=== PATIENT | male | born 1975 | race Hispanic/Latino ===

== ENCOUNTER 2017-02-24 10:50 | Inpatient (IN) | payer BC ==
[2017-02-24] MEDS ORDERED: Sodium Chloride 0.9% 2,000 ML IV STA ×2 (11:04→13:52)
--- NOTE | 2017-02-24 11:09 | ED PDOC ---
Arrival/HPI - General Time Seen by Provider: 02/24/17 10:51 Historian: Patient - History of Present Illness Narrative History of Present Illness (Text): 02/24/17 11:07 41 year old male whose past medical history includes diabetes presents to the emergency department with abdominal pain, vomiting, and diarrhea since yesterday. Patient is uncooperative, refusing to answer questions. Time/Duration: 24 hours Symptom Onset: Sudden Symptom Course: Unchanged Context: Home Past Medical History - Provider Review Nursing Documentation Reviewed: Yes - Infectious Disease Hx of Infectious Diseases: None - Endocrine/Metabolic Hx Diabetes Mellitus Type 1: Yes - Psychiatric Hx Substance Use: No Family/Social History - Physician Review Nursing Documentation Reviewed: Yes Family/Social History: Unknown Family HX Smoking Status: Never Smoked Hx Alcohol Use: Yes Frequency of alcohol use: Socially Hx Substance Use: No Allergies/Home Meds Allergies/Adverse Reactions: Allergies No Known Allergies Allergy (Verified 02/24/17 11:07) Home Medications: Home Meds Medication Instructions Recorded Confirmed Atorvastatin [Lipitor] 20 mg PO DAILY 02/24/17 02/24/17 Ergocalciferol (Vitamin D2) 50,000 unit PO DAILY 02/24/17 02/24/17 [Vitamin D] Insulin Glulisine [Apidra] 100 unit IJ CONT 02/24/17 02/24/17 Review of Systems - Review of Systems Systems not reviewed;Unavailable: Uncooperative Gastrointestinal: Abdominal Pain, Diarrhea, Vomiting Physical Exam - Physical Exam Physical Exam Limitations: Uncooperative (Patient refusing to answer questions, refusing to open mouth for phsyical examination) Vital Signs Reviewed: Yes Vital Signs Temp Pulse Resp BP Pulse Ox 02/24/17 13:50 96 H 27 H 100 02/24/17 13:47 141/78 99 02/24/17 13:26 101 H 18 135/71 97 02/24/17 11:05 98.7 F 120 H 20 143/66 96 Temperature: Afebrile Blood Pressure: Normal Pulse: Tachycardic Respiratory Rate: Normal Appearance: Positive for: Well-Appearing, Non-Toxic, Uncomfortable Pain Distress: Moderate Mental Status: Positive for: other (Uncooperative) Finger Stick Blood Glucose: 500 - Systems Exam Head: Present: Atraumatic, Normocephalic Conjunctiva: Present: Normal Respiratory/Chest: Present: Clear to Auscultation, Good Air Exchange. No: Respiratory Distress, Accessory Muscle Use Cardiovascular: Present: Normal S1, S2. No: Murmurs Abdomen: Present: Normal Bowel Sounds. No: Tenderness, Distention, Peritoneal Signs Upper Extremity: Present: Normal Inspection. No: Cyanosis, Edema Lower Extremity: Present: Normal Inspection. No: Edema Neurological: Present: GCS=15, CN II-XII Intact, Speech Normal Psychiatric: Present: Alert Medical Decision Making ED Course and Treatment: 02/24/17 12:20 Case discussed with ICU, recommends [facility]. - Critical Care Critical Care Minutes: 60 minutes - Lab Interpretations Lab Results: 02/24/17 11:00 02/24/17 11:00 Lab Results 02/24/17 11:04: pO2 193 H, VBG pH 7.06 L*, VBG pCO2 18.0 L*, VBG HCO3 5.1 L, VBG O2 Sat (Calc) 99.8 H, VBG Base Excess -23.4 L 02/24/17 11:01: POC Glucose (mg/dL) > 500 H* 02/24/17 11:00: Alcohol, Quantitative < 10 02/24/17 11:00: Sodium 129 L, Potassium 6.0 H*, Chloride 90 L, Carbon Dioxide < 5 L, Anion Gap 40 H, BUN 46 H, Creatinine 2.2 H, Est GFR ( Amer) 40, Est GFR (Non-Af Amer) 33, Random Glucose 937 H*, Calcium 9.5, Total Bilirubin 1.3, AST 40, ALT 36, Alkaline Phosphatase 94, Total Protein 6.9, Albumin 4.7, Globulin 2.1, Albumin/Globulin Ratio 2.2 H, Lipase 200 02/24/17 11:00: WBC 19.1 H, RBC 4.37, Hgb 13.5 L, Hct 41.5 L, MCV 95.0, MCH 30.9 , MCHC 32.5, RDW 13.6, Plt Count 312, MPV 10.1, Gran % 89.7 H, Lymph % (Auto) 3.8 L, [place] % (Auto) 6.4 H, Eos % (Auto) 0.0 L, Baso % (Auto) 0.1, Gran # 17.12 H, Lymph # 0.7 L, [place] # 1.2 H, Eos # 0.0, Baso # 0.01 - RAD Interpretation Radiology Orders: 02/24/17 11:04 CHEST PORTABLE [RAD] Stat 02/24/17 11:05 obstructive series [ABD 2 VIEWS (FLAT/UP OR DECUB)] [RAD] Stat - Medication Orders Current Medication Orders: Discontinued Medications Aspirin (Ecotrin) 325 mg PO DAILY [facility] Last Admin: 02/25/17 18:18 Dose: 325 mg Barium Sulfate (Readi-Cat 2) Confirm Administered Dose 900 ml PO .STK-MED ONE Stop: 02/25/17 06:38 Dextrose (Dextrose 50% Inj) Confirm Administered Dose 50 ml .ROUTE .STK-MED ONE Stop: 02/25/17 22:11 Dextrose (Dextrose 50% Inj) Confirm Administered Dose 50 ml .ROUTE .STK-MED ONE Stop: 02/25/17 22:13 Last Admin: 02/25/17 22:38 Dose: 50 ml Dextrose (Dextrose 50% Inj) 50 ml IVP ONCE ONE Stop: 02/25/17 22:22 Enoxaparin Sodium (Lovenox) 70 mg SC Q12H [facility] PRN Reason: Protocol Last Admin: 02/25/17 18:18 Dose: 70 mg Sodium Chloride (Sodium Chloride 0.9%) 2,000 mls @ 999 mls/hr IV .Q2H1M STA Stop: 02/24/17 13:04 Last Admin: 02/24/17 11:23 Dose: 999 mls/hr Lactated Ringer's (Lactated Ringer's) 2,000 mls @ 999 mls/hr IV .Q2H1M [facility] Last Admin: 02/24/17 12:17 Dose: 999 mls/hr Sodium Chloride (Sodium Chloride 0.9%) 1,000 mls @ 999 mls/hr IV .Q1H1M STA Stop: 02/24/17 12:29 Last Admin: 02/24/17 11:56 Dose: 999 mls/hr Insulin Human Regular 100 (units/ Sodium Chloride) 100 mls @ 7 mls/hr IV .[id number] PRN; Protocol; 7 UNITS/HR PRN Reason: TITRATE PER MD ORDER Last Titration: 02/25/17 04:00 Dose: 0 units/hr, 0 mls/hr Ceftriaxone Sodium (Rocephin 1 Gram Ivpb) 1 gm in 100 mls @ 200 mls/hr IVPB STAT STA PRN Reason: Protocol Stop: 02/24/17 12:42 Last Admin: 02/24/17 12:56 Dose: 200 mls/hr Sodium Chloride (Sodium Chloride 0.9%) 1,000 mls @ 125 mls/hr IV .Q8H [facility] Last Admin: 02/24/17 21:05 Dose: 125 mls/hr Sodium Chloride (Sodium Chloride 0.9%) 2,000 mls @ 999 mls/hr IV .Q2H1M STA Stop: 02/24/17 15:52 Last Admin: 02/24/17 14:00 Dose: 999 mls/hr Piperacillin Sod/Tazobactam Sod (Zosyn 3.375 In Ns 100ml) 100 mls @ 200 mls/hr IVPB Q6 [facility] PRN Reason: Protocol Stop: 03/05/17 20:54 Last Admin: 02/24/17 21:06 Dose: 200 mls/hr Potassium Chloride 10 meq/ (Dextrose/Sodium Chloride) 1,005 mls @ 150 mls/hr IV .Q6H42M [facility] Last Admin: 02/25/17 09:00 Dose: 150 mls/hr Piperacillin Sod/Tazobactam Sod (Zosyn 3.375 In Ns 100ml) 100 mls @ 200 mls/hr IVPB Q6 [facility] PRN Reason: Protocol Stop: 03/05/17 20:54 Last Admin: 02/26/17 00:05 Dose: 200 mls/hr Piperacillin Sod/Tazobactam Sod (Zosyn 3.375 In Ns 100ml) Confirm Administered Dose 100 mls @ ud IVPB .STK-MED ONE Stop: 02/25/17 12:26 Sodium Chloride (Sodium Chloride 0.9%) 1,000 mls @ 100 mls/hr IV .Q10H [facility] Stop: 03/01/17 21:14 Last Admin: 02/25/17 18:17 Dose: 100 mls/hr Insulin Detemir (Levemir) 60 unit SC ONCE ONE Stop: 02/25/17 10:06 Last Admin: 02/25/17 10:35 Dose: 60 unit Insulin Detemir (Levemir) Confirm Administered Dose 60 unit SC .STK-MED ONE Stop: 02/25/17 10:35 Insulin Human Regular (Humulin R) 10 units IV STAT STA Stop: 02/24/17 11:55 Last Admin: 02/24/17 12:17 Dose: 10 units Insulin Human Regular (Humulin R Med) 0 units SC ACHS [facility] PRN Reason: Protocol Last Admin: 02/25/17 22:52 Dose: Not Given Non-Admin Reason: Blood Sugar Parameter Insulin Human Regular (Humulin R) Confirm Administered Dose 8 units .ROUTE .STK- MED ONE Stop: 02/25/17 12:27 Metoclopramide HCl (Reglan) 10 mg IVP Q6H [facility] Last Admin: 02/26/17 00:04 Dose: 10 mg Metoclopramide HCl (Reglan) Confirm Administered Dose 10 mg .ROUTE .STK-MED ONE Stop: 02/25/17 12:24 Metoclopramide HCl (Reglan) Confirm Administered Dose 10 mg .ROUTE .STK-MED ONE Stop: 02/25/17 12:25 Metoprolol Tartrate (Lopressor) 25 mg PO BRKDIN [facility] Ondansetron HCl (Zofran Inj) 4 mg IVP ONCE ONE Stop: 02/24/17 11:08 Last Admin: 02/24/17 11:22 Dose: 4 mg Ondansetron HCl (Zofran Inj) 4 mg IVP Q4H PRN PRN Reason: Nausea/Vomiting Pantoprazole Sodium (Protonix Inj) 40 mg IVP DAILY [facility] Last Admin: 02/25/17 10:35 Dose: 40 mg Pantoprazole Sodium (Protonix Inj) Confirm Administered Dose 40 mg .ROUTE .STK- MED ONE Stop: 02/25/17 10:35 Pneumococcal Polyvalent Vaccine (Pneumovax 23 Vaccine) 0.5 ml IM .ONCE ONE Stop: 02/24/17 14:56 Potassium Chloride (K-Dur 20 Meq Er Tab) 40 meq PO STAT STA Stop: 02/24/17 18:17 Last Admin: 02/24/17 18:32 Dose: 40 meq - Scribe Statement The provider has reviewed the documentation as recorded by the Alize Mcclain Provider Scribe Attestation: All medical record entries made by the Scribyoung were at my direction and personally dictated by me. I have reviewed the chart and agree that the record accurately reflects my personal performance of the history, physical exam, medical decision making, and the department course for this patient. I have also personally directed, reviewed, and agree with the discharge instructions and disposition. Disposition/Present on Arrival - Present on Arrival Any Indicators Present on Arrival: No History of DVT/PE: No History of Uncontrolled Diabetes: No Urinary Catheter: No History of Decub. Ulcer: No History Surgical Site Infection Following: None - Disposition Have Diagnosis and Disposition been Completed?: Yes Diagnosis: DKA (diabetic ketoacidoses) Disposition: HOME/ ROUTINE Disposition Time: 12:18 Condition: GUARDED
[2017-02-24 11:11] LABS: ADD MANUAL DIFF? NO
[2017-02-24 11:21] LABS: VENOUS BLOOD GAS BASE EXCESS -23.4 mmol/L (0.0-2.0)
[2017-02-24 11:23] LABS: BASO # 0.01 K/mm3 (0.0-2.0); BASO % 0.1 % (0.0-3.0); GRAN # 17.12 (1.4-6.5); GRAN % 89.7 % (50.0-68.0); HEMATOCRIT 41.5 % (42.0-52.0); LYMPH # 0.7 (1.2-3.4); LYMPH % 3.8 % (22.0-35.0); MEAN CORPUSCULAR HEMOGLOBIN 30.9 pg (25.0-35.0); MEAN CORPUSCULAR HGB CONC 32.5 g/dl (31.0-37.0); MEAN PLATELET VOLUME 10.1 fl (7.0-11.0); MONO # 1.2 (0.1-0.6); MONO % 6.4 % (1.0-6.0); PLATELET COUNT 312 10^3/uL (120.0-450.0); RED CELL DISTRIBUTION WIDTH 13.6 % (11.5-14.5); WHITE BLOOD COUNT 19.1 10^3/ul (4.5-11.0)
[2017-02-24 11:24] LABS: VENOUS BLOOD PH 7.06 (7.32-7.43)
[2017-02-24 11:25] LABS: ALB/GLOB RATIO 2.2 (1.1-1.8); ALKALINE PHOSPHATASE 94 U/L (38-133); ALT/SGPT 36 U/L (7-56); AST/SGOT 40 U/L (15-59); BILIRUBIN,TOTAL 1.3 mg/dL (0.2-1.3); BLOOD UREA NITROGEN 46 mg/dL (7-21); CALCIUM 9.5 mg/dL (8.4-10.5); CHLORIDE 90 mmol/L (98-107); GFR AFRICAN-AMERICAN 40; LIPASE 200 U/L (23-300); SODIUM 129 mmol/L (132-148); TOTAL PROTEIN 6.9 g/dL (5.8-8.3)
[2017-02-24] MEDS ORDERED: Lactated Ringer's 2,000 ML IV SCH (11:29)
[2017-02-24] MEDS ORDERED: Sodium Chloride 0.9% 1,000 ML IV STA (11:29)
[2017-02-24 11:52] LABS: CARBON DIOXIDE < 5 mmol/L (21-33)
[2017-02-24 11:53] LABS: GLUCOSE,RANDOM 937 mg/dL (70-110)
[2017-02-24] MEDS ORDERED: Insulin Regular 100 UNITS in Sodium Chloride 0.9% 99 ML IV PRN (11:54)
[2017-02-24] MEDS ORDERED: Insulin Regular 1 UNITS/0.01 ML ML IV STA (11:54)
[2017-02-24 11:57] VITALS: BMI 24.3
[2017-02-24] MEDS ORDERED: cefTRIAXone 1 gm 1 GM/100 ML BAG IVPB STA (12:13)
--- NOTE | 2017-02-24 12:52 | CP.PCM.CON ---
<Darin Kirby - Last Filed: 02/24/17 14:06> History of Present Illness - History of Present Illness History of Present Illness: Critical Care Consult Note for Dr. Yang CC: DKA This is a 41M diagnosed with diabetes in 1997 when he had an episode of DKA. He reports a brief period of difficulty controlling his blood sugar for the first couple of years however he reports no issues in recent. He denies recent DKA however he reports visits to the ED due to hypoglycemia. The patient reports that a few months ago he received a new [employer]tronics insulin pump. He reports that yesterday he had a had time controlling his blood sugar. He reports that he felt fine, he had chicken soup for lunch and then had an episode of emesis. His blood glucose was 300 at the time. He gave himself the recommended dose of insulin and reports that his blood glucose was again 300, he then gave himself the recommended dose of insulin again. He then tried to eat another bowl of soup and had another episode of emesis. He complains of a change in visual acuity today accompanied by respiratory changes and abdominal pain. He denies any chest pain. Aside from emesis he denies any recent illnesses. PMH: DM1 PSH: Hernia repair ALL: NKDA Meds: Insulin, Lipitor (non compliant due to myalgias) Family History: Unknown Social: Denies regular use of ETOH or tobacco, denies drug use. Review of Systems - Review of Systems All systems: reviewed and no additional remarkable complaints except Past Patient History - Infectious Disease Hx of Infectious Diseases: None - Past Social History Smoking Status: Never Smoked - ENDOCRINE/METABOLIC Hx Diabetes Mellitus Type 1: Yes - PSYCHIATRIC Hx Substance Use: No - SURGICAL HISTORY Hx Surgeries: No Meds Allergies/Adverse Reactions: Allergies Allergy/AdvReac Type Severity Reaction Status Date / Time No Known Allergies Allergy Verified 02/24/17 11:07 - Medications Medications: Current Medications Lactated Ringer's (Lactated Ringer's) 2,000 mls @ 999 mls/hr IV .Q2H1M [facility] Last Admin: 02/24/17 12:17 Dose: 999 mls/hr Insulin Human Regular 100 (units/ Sodium Chloride) 100 mls @ 7 mls/hr IV .[id number] PRN; Protocol; 7 UNITS/HR PRN Reason: TITRATE PER MD ORDER Physical Exam - Constitutional Appears: Non-toxic, No Acute Distress - Head Exam Head Exam: ATRAUMATIC, NORMOCEPHALIC - Eye Exam Eye Exam: EOMI, Normal appearance, PERRL - ENT Exam ENT Exam: Mucous Membranes Moist - Neck Exam Neck exam: Positive for: Normal Inspection - Respiratory Exam Respiratory Exam: Clear to Auscultation Bilateral Additional comments: Kussmaul breaths, ketone breath - Cardiovascular Exam Cardiovascular Exam: REGULAR RHYTHM, +S1, +S2 - GI/Abdominal Exam GI & Abdominal Exam: Hypoactive Bowel Sounds, Soft. absent: Distended, Firm, Guarding, Hernia, Rebound, Rigid - Extremities Exam Extremities exam: Positive for: normal inspection, pedal pulses present - Neurological Exam Neurological exam: Alert, CN II-XII Intact, Oriented x3 - Psychiatric Exam Psychiatric exam: Normal Affect, Normal Mood - Skin Skin Exam: Dry, Intact, Normal Color Results - Vital Signs Recent Vital Signs: Last Vital Signs Temp 98.7 F 02/24/17 11:05 Pulse 120 H 02/24/17 11:05 Resp 20 02/24/17 11:05 BP 143/66 02/24/17 11:05 Pulse Ox 96 02/24/17 11:05 - Labs Result Diagrams: 02/24/17 11:00 02/24/17 11:00 - Imaging and Cardiology Abdominal x-ray Status: Image reviewed by me Chest x-ray Status: Image reviewed by me Assessment & Plan - Assessment and Plan (Free Text) Assessment: This is a 41m with a PMH of Type 1 DM who is presenting with diabetic ketoacidosis, on admission blood glucose 937, pH 7.06, anion gap 34 Neuro: AAOX3, No acute disease processes CV: No active disease processes, however do cardiovascular risks associated with DM, pt may benefit from a statin after discharge from ICU Pulm: No active disease processes Heme: Hemodynamically stable, No active disease processes ID: WBC 19.1 send for urine, and blood cultures, empiric abx GI: Zofran for nausea, NPO, IVF : Bun/Cr elevated 2/1 ratio likely prerenal; will continue with IVF Endo: Hyperglycemia; Insulin drip, IVF, Accuchecks Q1, with goal of euglycemia, replete potassium as needed. Will discuss with Dr. Trey Kirby PGY-1 <Trey ALLEN,Fabiola H - Last Filed: 02/24/17 14:32> Meds - Medications Medications: Current Medications Lactated Ringer's (Lactated Ringer's) 2,000 mls @ 999 mls/hr IV .Q2H1M [facility] Last Admin: 02/24/17 12:17 Dose: 999 mls/hr Insulin Human Regular 100 (units/ Sodium Chloride) 100 mls @ 7 mls/hr IV .[id number] PRN; Protocol; 7 UNITS/HR PRN Reason: TITRATE PER MD ORDER Last Titration: 02/24/17 13:57 Dose: 6 units/hr, 6 mls/hr Sodium Chloride (Sodium Chloride 0.9%) 1,000 mls @ 125 mls/hr IV .Q8H [facility] Sodium Chloride (Sodium Chloride 0.9%) 2,000 mls @ 999 mls/hr IV .Q2H1M [facility] Stop: 02/24/17 15:52 Ondansetron HCl (Zofran Inj) 4 mg IVP Q4H PRN PRN Reason: Nausea/Vomiting Pantoprazole Sodium (Protonix Inj) 40 mg IVP DAILY [facility] Results - Vital Signs Recent Vital Signs: Last Vital Signs Temp 97.7 F 02/24/17 14:11 Pulse 88 02/24/17 14:20 Resp 31 H 02/24/17 14:20 BP 120/80 02/24/17 14:11 Pulse Ox 100 02/24/17 14:20 - Labs Result Diagrams: 02/24/17 11:00 02/24/17 11:00 Labs: Laboratory Results - last 24 hr 02/24/17 02/24/17 13:18 13:18 Urine Color Yellow Urine Appearance Clear Urine pH 6.0 Ur Specific [place] 1.020 Urine Protein Negative Urine Glucose (UA) >=1000 Urine Ketones >=80 Urine Blood Small H Urine Nitrate Negative Urine Bilirubin Negative Urine Urobilinogen 0.2 Ur Leukocyte Esterase Negative Urine RBC 0 - 2 Urine WBC 0 - 2 Ur Epithelial Cells 0 - 2 Urine Bacteria Few Urine Opiates Screen Negative Urine Methadone Screen Negative Ur Barbiturates Screen Negative Ur Phencyclidine Scrn Negative Ur Amphetamines Screen Negative U Benzodiazepines Scrn Negative U Oth Cocaine Metabols Negative U Cannabinoids Screen Negative Attending/Attestation - Attestation I have personally seen and examined this patient.: Yes I have fully participated in the care of the patient.: Yes I have reviewed all pertinent clinical information: Yes Notes (Text): 02/24/17 14:30 41 y/o M w/ DKA DKA on Insulin Pump No problems in the past with the insulin pump. Does complain of abd pain and nausea / vomiting and poor P.O intake Likely some infectious cause, Blood, urine cx drawn. Rocephin given. Will monitor if abx need to be upgraded . On DKA Protocol. 5 L NS to be given. NS @ 120ml/hr NPO Q1 accuchecks Q4 bmp Once BS < 250 change to D%NS @ 120ml/hr Replace K once < 5. Monitor urine output and AG . Once AG closed , we maybe able to restart patient home insulin pump and overlap with long acting insulin. Consult Dr PAL endocrine. ppi DVT P cc time 65 min
--- NOTE | 2017-02-24 13:26 | RAD ---
HISTORY: DKA COMPARISON: No prior. FINDINGS: LUNGS: The lungs are well inflated and clear. PLEURA: No significant pleural effusion identified, no pneumothorax apparent. CARDIOVASCULAR: Normal. OSSEOUS STRUCTURES: No significant abnormalities. VISUALIZED UPPER ABDOMEN: Normal. OTHER FINDINGS: None. IMPRESSION: No active pulmonary disease.
--- NOTE | 2017-02-24 13:31 | RAD ---
HISTORY: dka abd pain COMPARISON: No prior. FINDINGS: BOWEL: The bowel gas pattern is nonspecific. There is no bowel dilatation. BONES: Normal. OTHER FINDINGS: The lungs are well inflated and clear. IMPRESSION: Nonspecific bowel gas pattern.
[2017-02-24 13:41] LABS: URINE BILIRUBIN NEGATIVE (NEGATIVE); URINE BLOOD SMALL (NEGATIVE); URINE GLUCOSE (UA) >=1000 mg/dL (NEGATIVE); URINE KETONE >=80 mg/dL (NEGATIVE); URINE LEUKOCYTE ESTERASE NEGATIVE Leu/uL (NEGATIVE); URINE PROTEIN NEGATIVE mg/dL (<30 mg/dL); URINE UROBILINOGEN 0.2 E.U./dL (<1 E.U./dL)
[2017-02-24] MEDS: Sodium Chloride 0.9% 1,000 ML IV SCH ×2 (13:45→21:05)
[2017-02-24 13:52] LABS: URINE APPEARANCE CLEAR (CLEAR); URINE COLOR YELLOW (YELLOW)
[2017-02-24 13:55] LABS: URINE BACTERIA FEW (NEG); URINE EPITHELIAL CELLS 0 - 2 /hpf (0-5); URINE RBC 0 - 2 /hpf (0-2); URINE WBC 0 - 2 /hpf (0-6)
[2017-02-24] MEDS ORDERED: Pneumococcal 23-Valent Vaccine IM ONE (14:55)
[2017-02-24 15:23] LABS: CALCIUM 8.4 mg/dL (8.4-10.5); POTASSIUM 4.5 mmol/L (3.6-5.0)
[2017-02-24 15:42] LABS: FREE T4 0.94 ng/dL (0.78-2.19); T4 5.1 ug/dL (5.5-11.0)
[2017-02-24 15:55] LABS: THYROID STIMULATING HORMONE 0.5 mIU/mL (0.46-4.68)
[2017-02-24 16:07] LABS: TROPONIN I 0.15 ng/mL
[2017-02-24] MEDS ORDERED: Potassium Chloride 20 mEq ER Tab PO STA (18:16)
--- NOTE | 2017-02-24 20:39 | CON ---
DATE: 02/24/2017 LOCATION: CCU 128, room 3. HISTORY OF PRESENT ILLNESS: This is a 41-year-old male with known history of type 1 insulin-dependen t diabetes, currently on a [employer] insulin pump who presents here with intractable nausea and vomit ing, and supervening hyperglycemic accelerations and has been evaluated to be in diabetic ketoacidosi s and dehydration and is now being referred for endocrine management. PAST MEDICAL HISTORY: As mentioned above, the patient actually has been placed on a Medtronic insuli n pump in the last few months using Apidra rapid acting insulin and was apparently doing okay until a few weeks prior to admission when he noted episodic bouts of hyperglycemic accelerations as noted. However, in the last few days, he noted persistent hyperglycemic levels over 300 despite dose adjustm ent undertaken on his pump. History of type 1 diabetes diagnosed in 1997 and was on multiple dose in [facility], until he was switched over to the insulin pump. History of hypertension and dyslipidemia. FAMILY HISTORY: Positive for hypertension and diabetes. SOCIAL HISTORY: The patient has a supportive family. No known substance use. REVIEW OF SYSTEMS: As mentioned above, admits to generalized body weakness with easy fatigability an d tiredness and suboptimal energy level. Also admits to dizziness and lightheadedness, worse in the last 2-3 days prior to admission. No chest pains or palpitations or PNDs. His oral intake has been suboptimal and variable with supervening nausea, dyspepsia and intractable vomiting episodes. Also, admits to marked polyuria and nocturia, especially on the day of admission. PHYSICAL EXAMINATION: GENERAL: An average built male in no apparent distress. VITAL SIGNS: Blood pressure of 130/80, pulse of 100 beats per minute and regular, temperature 98, re spirations 20. Height is 5 feet 10, weight is 170 pounds. HEENT: Head normocephalic. Eyes anicteric with pink conjunctivae. Fundoscopy not possible at this time. Ears, nose and throat otherwise normal. NECK: Supple. Thyroid gland is normal size. No carotid bruits. No cervical adenopathy. CARDIOPULMONARY: Some adynamic precordium. S1, S2 is rapid and regular. LUNGS: Clear to auscultation. ABDOMEN: Flat, soft with positive bowel sounds. EXTREMITIES: No peripheral edema. Pulses are +2 bilaterally. SKIN: Turgor is coarse and dry and the buccal mucosa is parched and dry. LABORATORY DATA: Chemistry showed a BUN of 46, sodium 129, potassium 6.0, chloride 90, CO2 is less t conde 5, glucose is 937, and creatinine is 2.2. Lipase is 200. ASSESSMENT: This is a 41-year-old male with uncontrolled and decompensated type 1 insulin-dependent diabetes, presenting here with diabetic ketoacidosis and dehydration with spurious hyponatremia and h yperkalemia and also prerenal azotemia and dehydration. The most likely precipitating factor would b e the malfunction of his insulin pump, which was supposed to be continuous insulin as noted. PLAN OF MANAGEMENT: As discussed with the patient and the staff, we will continue the intensive insu dinesh therapy as ordered with an insulin drip infusion currently ongoing at this time. We will also co ntinue the vigorous IV hydration to replenish the lost fluid and electrolytes from increased osmotic diuresis thereof. As his serum bicarbonate or CO2 improves, or at least goes above 18, then we will safely switch him over to a more physiologic basal and bolus insulin regimen as indicated. We will o btain serial chemistries and supplement accordingly as needed. The hemoglobin A1c has been sent out and baseline thyroid function studies will also be obtained. We will contact the [employer] pump spec ialist regarding providing him with new infusion sets which could have been the main cause of the pro blem with his Medtronic insulin pump at this time. We will consult our diabetic nurse educator and o ur dietitians for diabetic education and dietary health and to reinforce dietary counseling and nutri tional support. We will follow. Kortney Jaime MD cc: [phone] TT: 02/24/2017 20:38:47 Confirmation # [id number] Dictation # [id number] daniela
[2017-02-24] MEDS ORDERED: Piperacillin/Tazobact 3.375 gm 100 ML IVPB SCH (20:53)
[2017-02-24 21:14] LABS: BLOOD UREA NITROGEN 35 mg/dL (7-21); CALCIUM 8.4 mg/dL (8.4-10.5); CARBON DIOXIDE 18 mmol/L (21-33); GFR AFRICAN-AMERICAN > 60; GLUCOSE,RANDOM 279 mg/dL (70-110); POTASSIUM 4.3 mmol/L (3.6-5.0); SODIUM 132 mmol/L (132-148)
[2017-02-24 21:22] LABS: CHLORIDE 102 mmol/L (98-107)
--- NOTE | 2017-02-24 21:22 | CON ---
DATE: 02/24/2017 The patient seen in ICU 128, bed 3. CHIEF COMPLAINT: Abdominal pain x 1 day duration. HISTORY OF PRESENT ILLNESS: A 41-year-old male who has a history of diabetes mellitus and high molly sterol, who was admitted with a diagnosis of diabetic ketoacidosis. Infectious disease consultation requested because of a white count of 19,000. The patient states he had low-grade fevers, no chills. He did have nausea, vomiting and abdominal pain. The abdominal pain is diffuse, dull in nature wit hout radiation and he had diarrhea. He has no dysuria or frequency. No headaches. No new neck pain , no sore throat. PAST MEDICAL HISTORY: Significant for diabetes mellitus and high cholesterol. PAST SURGICAL HISTORY: Significant for hernia repair as a child. ALLERGIES: The patient has no known allergies. MEDICATIONS AT HOME: Include insulin, Lipitor and vitamin D. SOCIAL HISTORY: The patient works as a steel construction worker. He denies any drug use. No travel hist ory. PHYSICAL EXAMINATION: VITAL SIGNS: Temperature is 97, blood pressure is 122/50, respiratory rate of 28, heart rate of 92. HEENT: Unremarkable. NECK: Supple. LUNGS: Have decreased breath sounds. HEART: Normal S1, S2. ABDOMEN: Soft, nontender. No rebound, no guarding, no masses. LABORATORY EXAMINATION: Reveals a white count of 19,100, hemoglobin of 13, platelets of 312. Chemis tries reveal the BUN of 44, creatinine of 1.6. Random glucose is 611. Lactic acid is 2.2. Troponin is 0.15. Lipase is normal. Alk phos is 94. LFTs are normal. Alk phos and LFTs are normal. His b icarb is 9 and his creatinine is 2.2 with a BUN of 46. The patient had a chest x-ray which was negat tc. Abdominal ultrasound revealed nonspecific bowel pattern. EKG results are not available. Dr. Moisés means's consultation is reviewed. ASSESSMENT AND PLAN: This is a 41-year-old male with diabetes mellitus, high cholesterol, who was ad mitted with abdominal pain, tachycardia, leukocytosis, nausea and vomiting, diarrhea. 1. Systemic inflammatory response syndrome in a patient with diabetic ketoacidosis and acute kidney injury. We will treat the patient with Zosyn, pending blood and urine culture, although urinalysis i s negative. We will order a CAT scan of the abdomen. Will order a procalcitonin and start the patie nt on Zosyn. We will check on the EKG. The patient does have an elevated troponin. Will make [facility] recommendations based on the initial results. We will also check on a human immunodeficiency viru s because of his age of 41. He lives by himself. He works on a [employer]. Will follow with yo u. Yon Aceves MD cc: [phone] TT: 02/24/2017 21:21:38 Confirmation # [id number] Dictation # [id number] umesh
--- NOTE | 2017-02-24 23:41 | CARD ---
APPROVED REPORT EKG Measurement Heart [id number] IA [id number] <Conclusion> Sinus tachycardia Otherwise normal ECG
[2017-02-25 00:59] LABS: BLOOD UREA NITROGEN 29 mg/dL (7-21); CALCIUM 8.6 mg/dL (8.4-10.5); CARBON DIOXIDE 21 mmol/L (21-33); CHLORIDE 105 mmol/L (98-107); GFR AFRICAN-AMERICAN > 60; GLUCOSE,RANDOM 144 mg/dL (70-110); POTASSIUM 3.5 mmol/L (3.6-5.0); SODIUM 134 mmol/L (132-148)
[2017-02-25] MEDS: Potassium Chloride 10 MEQ in Dextrose 5%/0.45% NS 1,000 ML IV SCH ×2 (01:10→09:00)
[2017-02-25] MEDS: Piperacillin/Tazobact 3.375 gm 100 ML IVPB SCH ×3 (05:35→18:22)
[2017-02-25 05:40] LABS: ADD MANUAL DIFF? NO
[2017-02-25 05:54] LABS: ALB/GLOB RATIO 1.6 (1.1-1.8); ALKALINE PHOSPHATASE 53 U/L (38-133); ALT/SGPT 40 U/L (7-56); AST/SGOT 45 U/L (15-59); BILIRUBIN,DIRECT 0.3 mg/dL (0.0-0.4); BILIRUBIN,TOTAL 1.2 mg/dL (0.2-1.3); BLOOD UREA NITROGEN 24 mg/dL (7-21); CALCIUM 8.4 mg/dL (8.4-10.5); CARBON DIOXIDE 22 mmol/L (21-33); CHLORIDE 109 mmol/L (98-107); GFR AFRICAN-AMERICAN > 60; GLUCOSE,RANDOM 100 mg/dL (70-110); MAGNESIUM 2.3 mg/dL (1.7-2.2); POTASSIUM 3.8 mmol/L (3.6-5.0); SODIUM 137 mmol/L (132-148); TOTAL PROTEIN 5.3 g/dL (5.8-8.3)
[2017-02-25 06:08] LABS: BASO # 0.01 K/mm3 (0.0-2.0); GRAN # 17.22 (1.4-6.5); HEMATOCRIT 31.2 % (42.0-52.0); LYMPH # 1.4 (1.2-3.4); MEAN CORPUSCULAR HEMOGLOBIN 30.6 pg (25.0-35.0); MEAN CORPUSCULAR HGB CONC 35.6 g/dl (31.0-37.0); MEAN PLATELET VOLUME 9.2 fl (7.0-11.0); MONO # 1.6 (0.1-0.6); MONO % 7.7 % (1.0-6.0); PLATELET COUNT 214 10^3/uL (120.0-450.0); WHITE BLOOD COUNT 20.2 10^3/ul (4.5-11.0)
[2017-02-25 06:16] LABS: TROPONIN I 0.44 ng/mL
[2017-02-25 06:26] LABS: GRAN % 85.3 % (50.0-68.0)
[2017-02-25] MEDS ORDERED: Barium Sulfate Susp 2.1% w/v, 2.0% w/w 450 mL Bottle PO ONE (06:37)
--- NOTE | 2017-02-25 08:39 | CP.CCUPN ---
<Darin Kirby - Last Filed: 02/25/17 08:36> CCU Subjective - Physician Review Events Since Last Encounter (Free Text): No acute events overnight. Nurse reports patient agitation due to NPO diet. 02/25/17 08:36 Subjective (Free Text): Patient reports feeling better today with resolution of nausea, and SOB however endorses continuation of generalized abdominal pain. Denies Chest pain, fevers, chills. 02/25/17 08:37 CCU Objective - Vital Signs / Intake & Output Vital Signs (Last 4 hours): Vital Signs Temp Pulse Resp BP Pulse Ox 02/25/17 08:04 97.6 F 86 18 115/66 100 02/25/17 07:00 84 40 H 120/65 100 02/25/17 06:50 94 H 26 H 98 02/25/17 06:40 88 51 H 98 02/25/17 06:30 86 15 98 02/25/17 06:20 90 45 H 98 02/25/17 06:10 85 17 98 02/25/17 06:00 87 20 106/61 99 02/25/17 05:50 92 H 32 H 95 02/25/17 05:49 94 H 02/25/17 05:48 96 H 28 H 02/25/17 05:47 95 H 28 H 02/25/17 05:46 97 H 28 H 02/25/17 05:45 91 H 31 H 02/25/17 05:44 91 H 24 02/25/17 05:43 86 25 H 02/25/17 05:42 86 20 02/25/17 05:41 86 43 H 02/25/17 05:40 88 25 H 02/25/17 05:39 90 20 02/25/17 05:38 87 18 02/25/17 05:37 92 H 27 H 02/25/17 05:36 88 24 02/25/17 05:35 88 28 H 02/25/17 05:34 99 H 29 H 02/25/17 05:33 92 H 19 02/25/17 05:32 98 H 40 H 02/25/17 05:31 97 H 29 H 02/25/17 05:30 97 H 02/25/17 05:29 108 H 42 H 02/25/17 05:28 91 H 02/25/17 05:27 85 21 02/25/17 05:26 88 21 02/25/17 05:25 89 21 02/25/17 05:24 87 24 02/25/17 05:23 93 H 32 H 02/25/17 05:20 84 22 100 02/25/17 05:10 93 H 23 100 02/25/17 05:00 83 18 107/56 L 100 02/25/17 04:50 85 20 98 02/25/17 04:40 86 19 98 Intake and Output (Last 8hrs): Intake & Output 02/24/17 02/25/17 02/25/17 22:59 06:59 14:59 Intake Total 5536 2668 Output Total 1125 1550 Balance 4411 1118 Intake: IV 1536 2318 lac 2300 rac 1500 0 Oral 0 350 Other 4000 Output: Urine 1125 1550 Urine, Voided 1125 1550 Other: Voiding Method Diaper # Voids Urine, Voided 4 # Bowel Movements 0 1 - Physical Exam Head: Positive for: Atraumatic, Normocephalic Pupils: Positive for: PERRL Extroacular Muscles: Positive for: EOMI Conjunctiva: Positive for: Normal Mouth: Positive for: Moist Mucous Membranes Respiratory/Chest: Positive for: Clear to Auscultation, Good Air Exchange. Negative for: Respiratory Distress, Accessory Muscle Use Cardiovascular: Positive for: Normal S1, S2. Negative for: Murmurs Abdomen: Positive for: Normal Bowel Sounds. Negative for: Tenderness, Distention, Peritoneal Signs Upper Extremity: Positive for: Normal Inspection. Negative for: Cyanosis, Edema Lower Extremity: Positive for: Normal Inspection. Negative for: Edema Neurological: Positive for: GCS=15, CN II-XII Intact, Speech Normal Skin: Positive for: Warm, Dry, Normal Color Psychiatric: Positive for: Alert, Oriented x 3, Normal Insight - Medications Active Medications: Active Medications Generic Name Dose Route Start Last Admin Trade Name Freq PRN Reason Stop Dose Admin Insulin Human Regular 100 100 mls @ 7 mls/hr 02/24/17 11:54 02/25/17 04:00 units/ Sodium Chloride IV 0 units/hr .[id number] PRN 0 mls/hr TITRATE PER MD ORDER Titration Protocol 7 UNITS/HR Potassium Chloride 10 meq/ 1,005 mls @ 150 mls/hr 02/25/17 00:45 02/25/17 01: 10 Dextrose/Sodium Chloride IV 150 mls/hr .[id number] NARA Administration Piperacillin Sod/Tazobactam Sod 100 mls @ 200 mls/hr 02/25/17 06:00 02/25/17 05:35 Zosyn 3.375 In Ns 100ml IVPB 03/05/17 20:54 200 mls/hr Q6 NARA Administration Protocol Metoclopramide HCl 10 mg 02/24/17 18:30 02/25/17 05:54 Reglan IVP 10 mg Q6H NARA Administration Ondansetron HCl 4 mg 02/24/17 14:14 Zofran Inj IVP Q4H PRN Nausea/Vomiting Pantoprazole Sodium 40 mg 02/24/17 13:45 02/24/17 15:30 Protonix Inj IVP 40 mg DAILY NARA Administration - Patient Studies Lab Studies: Lab Studies 02/25/17 02/25/17 02/25/17 Range/Units 08:00 06:54 05:55 WBC (4.5-11.0) 10^3/ul RBC (3.5-6.1) 10^6/uL Hgb (14.0-18.0) gm/dL Hct (42.0-52.0) % MCV (80.0-105.0) fL MCH (25.0-35.0) pg MCHC (31.0-37.0) g/dl RDW (11.5-14.5) % Plt Count (120.0-450.0) 10^3/uL MPV (7.0-11.0) fl Gran % (50.0-68.0) % Lymph % (Auto) (22.0-35.0) % [place] % (Auto) (1.0-6.0) % Eos % (Auto) (1.5-5.0) % Baso % (Auto) (0.0-3.0) % Gran # (1.4-6.5) Lymph # (1.2-3.4) [place] # (0.1-0.6) Eos # (0.0-0.7) Baso # (0.0-2.0) K/mm3 Sodium (132-148) mmol/L Potassium (3.6-5.0) mmol/L Chloride (98-107) mmol/L Carbon Dioxide (21-33) mmol/L Anion Gap (10-20) BUN (7-21) mg/dL Creatinine (0.5-1.4) mg/dL Est GFR ( Amer) Est GFR (Non-Af Amer) POC Glucose (mg/dL) 297 H 202 H 115 H (65-110) mg/dL Random Glucose (70-110) mg/dL Lactic Acid (0.7-2.1) mmol/L Uric Acid (3.5-8.5) mg/dL Calcium (8.4-10.5) mg/dL Magnesium (1.7-2.2) mg/dL Total Bilirubin (0.2-1.3) mg/dL Direct Bilirubin (0.0-0.4) mg/dL AST (15-59) U/L ALT (7-56) U/L Alkaline Phosphatase (38-133) U/L Troponin I ng/mL Total Protein (5.8-8.3) g/dL Albumin (3.0-4.8) g/dL Globulin gm/dL Albumin/Globulin Ratio (1.1-1.8) Triglycerides (35-160) mg/dL Cholesterol (130-200) mg/dL LDL Cholesterol Direct (0-129) mg/dL HDL Cholesterol (29-60) mg/dL Free T4 (0.78-2.19) ng/dL Thyroxine (T4) (5.5-11.0) ug/dL TSH 3rd Generation (0.46-4.68) mIU/mL Urine Color (YELLOW) Urine Appearance (CLEAR) Urine pH (4.7-8.0) Ur Specific [place] (1.005-1.035) Urine Protein (<30 mg/dL) mg/dL Urine Glucose (UA) (NEGATIVE) mg/dL Urine Ketones (NEGATIVE) mg/dL Urine Blood (NEGATIVE) Urine Nitrate (NEGATIVE) Urine Bilirubin (NEGATIVE) Urine Urobilinogen (<1 E.U./dL) E.U./dL Ur Leukocyte Esterase (NEGATIVE) [place]/uL Urine RBC (0-2) /hpf Urine WBC (0-6) /hpf Ur Epithelial Cells (0-5) /hpf Urine Bacteria (NEG) Urine Opiates Screen (NEGATIVE) Urine Methadone Screen (NEGATIVE) Ur Barbiturates Screen (NEGATIVE) Ur Phencyclidine Scrn (NEGATIVE) Ur Amphetamines Screen (NEGATIVE) U Benzodiazepines Scrn (NEGATIVE) U Oth Cocaine Metabols (NEGATIVE) U Cannabinoids Screen (NEGATIVE) 02/25/17 02/25/17 02/25/17 Range/Units 05:10 05:10 04:55 WBC 20.2 H (4.5-11.0) 10^3/ul RBC 3.63 (3.5-6.1) 10^6/uL Hgb 11.1 L (14.0-18.0) gm/dL Hct 31.2 L (42.0-52.0) % MCV 86.0 (80.0-105.0) fL MCH 30.6 (25.0-35.0) pg MCHC 35.6 (31.0-37.0) g/dl RDW 13.0 (11.5-14.5) % Plt Count 214 (120.0-450.0) 10^3/uL MPV 9.2 (7.0-11.0) fl Gran % 85.3 H (50.0-68.0) % Lymph % (Auto) 7.0 L (22.0-35.0) % [place] % (Auto) 7.7 H (1.0-6.0) % Eos % (Auto) 0.0 L (1.5-5.0) % Baso % (Auto) 0.0 (0.0-3.0) % Gran # 17.22 H (1.4-6.5) Lymph # 1.4 (1.2-3.4) [place] # 1.6 H (0.1-0.6) Eos # 0.0 (0.0-0.7) Baso # 0.01 (0.0-2.0) K/mm3 Sodium 137 (132-148) mmol/L Potassium 3.8 (3.6-5.0) mmol/L Chloride 109 H (98-107) mmol/L Carbon Dioxide 22 (21-33) mmol/L Anion Gap 10 (10-20) BUN 24 H (7-21) mg/dL Creatinine 0.8 (0.5-1.4) mg/dL Est GFR ( Amer) > 60 Est GFR (Non-Af Amer) > 60 POC Glucose (mg/dL) 104 (65-110) mg/dL Random Glucose 100 (70-110) mg/dL Lactic Acid (0.7-2.1) mmol/L Uric Acid (3.5-8.5) mg/dL Calcium 8.4 (8.4-10.5) mg/dL Magnesium 2.3 H (1.7-2.2) mg/dL Total Bilirubin 1.2 (0.2-1.3) mg/dL Direct Bilirubin 0.3 (0.0-0.4) mg/dL AST 45 (15-59) U/L ALT 40 (7-56) U/L Alkaline Phosphatase 53 (38-133) U/L Troponin I 0.44 H* ng/mL Total Protein 5.3 L (5.8-8.3) g/dL Albumin 3.3 (3.0-4.8) g/dL Globulin 2.1 gm/dL Albumin/Globulin Ratio 1.6 (1.1-1.8) Triglycerides (35-160) mg/dL Cholesterol (130-200) mg/dL LDL Cholesterol Direct (0-129) mg/dL HDL Cholesterol (29-60) mg/dL Free T4 (0.78-2.19) ng/dL Thyroxine (T4) (5.5-11.0) ug/dL TSH 3rd Generation (0.46-4.68) mIU/mL Urine Color (YELLOW) Urine Appearance (CLEAR) Urine pH (4.7-8.0) Ur Specific [place] (1.005-1.035) Urine Protein (<30 mg/dL) mg/dL Urine Glucose (UA) (NEGATIVE) mg/dL Urine Ketones (NEGATIVE) mg/dL Urine Blood (NEGATIVE) Urine Nitrate (NEGATIVE) Urine Bilirubin (NEGATIVE) Urine Urobilinogen (<1 E.U./dL) E.U./dL Ur Leukocyte Esterase (NEGATIVE) [place]/uL Urine RBC (0-2) /hpf Urine WBC (0-6) /hpf Ur Epithelial Cells (0-5) /hpf Urine Bacteria (NEG) Urine Opiates Screen (NEGATIVE) Urine Methadone Screen (NEGATIVE) Ur Barbiturates Screen (NEGATIVE) Ur Phencyclidine Scrn (NEGATIVE) Ur Amphetamines Screen (NEGATIVE) U Benzodiazepines Scrn (NEGATIVE) U Oth Cocaine Metabols (NEGATIVE) U Cannabinoids Screen (NEGATIVE) 02/25/17 02/25/17 02/25/17 Range/Units 03:56 02:54 01:50 WBC (4.5-11.0) 10^3/ul RBC (3.5-6.1) 10^6/uL Hgb (14.0-18.0) gm/dL Hct (42.0-52.0) % MCV (80.0-105.0) fL MCH (25.0-35.0) pg MCHC (31.0-37.0) g/dl RDW (11.5-14.5) % Plt Count (120.0-450.0) 10^3/uL MPV (7.0-11.0) fl Gran % (50.0-68.0) % Lymph % (Auto) (22.0-35.0) % [place] % (Auto) (1.0-6.0) % Eos % (Auto) (1.5-5.0) % Baso % (Auto) (0.0-3.0) % Gran # (1.4-6.5) Lymph # (1.2-3.4) [place] # (0.1-0.6) Eos # (0.0-0.7) Baso # (0.0-2.0) K/mm3 Sodium (132-148) mmol/L Potassium (3.6-5.0) mmol/L Chloride (98-107) mmol/L Carbon Dioxide (21-33) mmol/L Anion Gap (10-20) BUN (7-21) mg/dL Creatinine (0.5-1.4) mg/dL Est GFR ( Amer) Est GFR (Non-Af Amer) POC Glucose (mg/dL) 92 109 125 H (65-110) mg/dL Random Glucose (70-110) mg/dL Lactic Acid (0.7-2.1) mmol/L Uric Acid (3.5-8.5) mg/dL Calcium (8.4-10.5) mg/dL Magnesium (1.7-2.2) mg/dL Total Bilirubin (0.2-1.3) mg/dL Direct Bilirubin (0.0-0.4) mg/dL AST (15-59) U/L ALT (7-56) U/L Alkaline Phosphatase (38-133) U/L Troponin I ng/mL Total Protein (5.8-8.3) g/dL Albumin (3.0-4.8) g/dL Globulin gm/dL Albumin/Globulin Ratio (1.1-1.8) Triglycerides (35-160) mg/dL Cholesterol (130-200) mg/dL LDL Cholesterol Direct (0-129) mg/dL HDL Cholesterol (29-60) mg/dL Free T4 (0.78-2.19) ng/dL Thyroxine (T4) (5.5-11.0) ug/dL TSH 3rd Generation (0.46-4.68) mIU/mL Urine Color (YELLOW) Urine Appearance (CLEAR) Urine pH (4.7-8.0) Ur Specific [place] (1.005-1.035) Urine Protein (<30 mg/dL) mg/dL Urine Glucose (UA) (NEGATIVE) mg/dL Urine Ketones (NEGATIVE) mg/dL Urine Blood (NEGATIVE) Urine Nitrate (NEGATIVE) Urine Bilirubin (NEGATIVE) Urine Urobilinogen (<1 E.U./dL) E.U./dL Ur Leukocyte Esterase (NEGATIVE) [place]/uL Urine RBC (0-2) /hpf Urine WBC (0-6) /hpf Ur Epithelial Cells (0-5) /hpf Urine Bacteria (NEG) Urine Opiates Screen (NEGATIVE) Urine Methadone Screen (NEGATIVE) Ur Barbiturates Screen (NEGATIVE) Ur Phencyclidine Scrn (NEGATIVE) Ur Amphetamines Screen (NEGATIVE) U Benzodiazepines Scrn (NEGATIVE) U Oth Cocaine Metabols (NEGATIVE) U Cannabinoids Screen (NEGATIVE) 02/25/17 02/25/17 02/24/17 Range/Units 00:57 00:10 23:57 WBC (4.5-11.0) 10^3/ul RBC (3.5-6.1) 10^6/uL Hgb (14.0-18.0) gm/dL Hct (42.0-52.0) % MCV (80.0-105.0) fL MCH (25.0-35.0) pg MCHC (31.0-37.0) g/dl RDW (11.5-14.5) % Plt Count (120.0-450.0) 10^3/uL MPV (7.0-11.0) fl Gran % (50.0-68.0) % Lymph % (Auto) (22.0-35.0) % [place] % (Auto) (1.0-6.0) % Eos % (Auto) (1.5-5.0) % Baso % (Auto) (0.0-3.0) % Gran # (1.4-6.5) Lymph # (1.2-3.4) [place] # (0.1-0.6) Eos # (0.0-0.7) Baso # (0.0-2.0) K/mm3 Sodium 134 (132-148) mmol/L Potassium 3.5 L (3.6-5.0) mmol/L Chloride 105 (98-107) mmol/L Carbon Dioxide 21 (21-33) mmol/L Anion Gap 12 (10-20) BUN 29 H (7-21) mg/dL Creatinine 1.0 (0.5-1.4) mg/dL Est GFR ( Amer) > 60 Est GFR (Non-Af Amer) > 60 POC Glucose (mg/dL) 157 H 203 H (65-110) mg/dL Random Glucose 144 H (70-110) mg/dL Lactic Acid (0.7-2.1) mmol/L Uric Acid (3.5-8.5) mg/dL Calcium 8.6 (8.4-10.5) mg/dL Magnesium (1.7-2.2) mg/dL Total Bilirubin (0.2-1.3) mg/dL Direct Bilirubin (0.0-0.4) mg/dL AST (15-59) U/L ALT (7-56) U/L Alkaline Phosphatase (38-133) U/L Troponin I ng/mL Total Protein (5.8-8.3) g/dL Albumin (3.0-4.8) g/dL Globulin gm/dL Albumin/Globulin Ratio (1.1-1.8) Triglycerides (35-160) mg/dL Cholesterol (130-200) mg/dL LDL Cholesterol Direct (0-129) mg/dL HDL Cholesterol (29-60) mg/dL Free T4 (0.78-2.19) ng/dL Thyroxine (T4) (5.5-11.0) ug/dL TSH 3rd Generation (0.46-4.68) mIU/mL Urine Color (YELLOW) Urine Appearance (CLEAR) Urine pH (4.7-8.0) Ur Specific [place] (1.005-1.035) Urine Protein (<30 mg/dL) mg/dL Urine Glucose (UA) (NEGATIVE) mg/dL Urine Ketones (NEGATIVE) mg/dL Urine Blood (NEGATIVE) Urine Nitrate (NEGATIVE) Urine Bilirubin (NEGATIVE) Urine Urobilinogen (<1 E.U./dL) E.U./dL Ur Leukocyte Esterase (NEGATIVE) [place]/uL Urine RBC (0-2) /hpf Urine WBC (0-6) /hpf Ur Epithelial Cells (0-5) /hpf Urine Bacteria (NEG) Urine Opiates Screen (NEGATIVE) Urine Methadone Screen (NEGATIVE) Ur Barbiturates Screen (NEGATIVE) Ur Phencyclidine Scrn (NEGATIVE) Ur Amphetamines Screen (NEGATIVE) U Benzodiazepines Scrn (NEGATIVE) U Oth Cocaine Metabols (NEGATIVE) U Cannabinoids Screen (NEGATIVE) 02/24/17 02/24/17 02/24/17 Range/Units 23:05 21:39 21:02 WBC (4.5-11.0) 10^3/ul RBC (3.5-6.1) 10^6/uL Hgb (14.0-18.0) gm/dL Hct (42.0-52.0) % MCV (80.0-105.0) fL MCH (25.0-35.0) pg MCHC (31.0-37.0) g/dl RDW (11.5-14.5) % Plt Count (120.0-450.0) 10^3/uL MPV (7.0-11.0) fl Gran % (50.0-68.0) % Lymph % (Auto) (22.0-35.0) % [place] % (Auto) (1.0-6.0) % Eos % (Auto) (1.5-5.0) % Baso % (Auto) (0.0-3.0) % Gran # (1.4-6.5) Lymph # (1.2-3.4) [place] # (0.1-0.6) Eos # (0.0-0.7) Baso # (0.0-2.0) K/mm3 Sodium (132-148) mmol/L Potassium (3.6-5.0) mmol/L Chloride (98-107) mmol/L Carbon Dioxide (21-33) mmol/L Anion Gap (10-20) BUN (7-21) mg/dL Creatinine (0.5-1.4) mg/dL Est GFR ( Amer) Est GFR (Non-Af Amer) POC Glucose (mg/dL) 247 H 297 H 307 H (65-110) mg/dL Random Glucose (70-110) mg/dL Lactic Acid (0.7-2.1) mmol/L Uric Acid (3.5-8.5) mg/dL Calcium (8.4-10.5) mg/dL Magnesium (1.7-2.2) mg/dL Total Bilirubin (0.2-1.3) mg/dL Direct Bilirubin (0.0-0.4) mg/dL AST (15-59) U/L ALT (7-56) U/L Alkaline Phosphatase (38-133) U/L Troponin I ng/mL Total Protein (5.8-8.3) g/dL Albumin (3.0-4.8) g/dL Globulin gm/dL Albumin/Globulin Ratio (1.1-1.8) Triglycerides (35-160) mg/dL Cholesterol (130-200) mg/dL LDL Cholesterol Direct (0-129) mg/dL HDL Cholesterol (29-60) mg/dL Free T4 (0.78-2.19) ng/dL Thyroxine (T4) (5.5-11.0) ug/dL TSH 3rd Generation (0.46-4.68) mIU/mL Urine Color (YELLOW) Urine Appearance (CLEAR) Urine pH (4.7-8.0) Ur Specific [place] (1.005-1.035) Urine Protein (<30 mg/dL) mg/dL Urine Glucose (UA) (NEGATIVE) mg/dL Urine Ketones (NEGATIVE) mg/dL Urine Blood (NEGATIVE) Urine Nitrate (NEGATIVE) Urine Bilirubin (NEGATIVE) Urine Urobilinogen (<1 E.U./dL) E.U./dL Ur Leukocyte Esterase (NEGATIVE) [place]/uL Urine RBC (0-2) /hpf Urine WBC (0-6) /hpf Ur Epithelial Cells (0-5) /hpf Urine Bacteria (NEG) Urine Opiates Screen (NEGATIVE) Urine Methadone Screen (NEGATIVE) Ur Barbiturates Screen (NEGATIVE) Ur Phencyclidine Scrn (NEGATIVE) Ur Amphetamines Screen (NEGATIVE) U Benzodiazepines Scrn (NEGATIVE) U Oth Cocaine Metabols (NEGATIVE) U Cannabinoids Screen (NEGATIVE) 02/24/17 02/24/17 02/24/17 Range/Units 20:50 20:09 19:08 WBC (4.5-11.0) 10^3/ul RBC (3.5-6.1) 10^6/uL Hgb (14.0-18.0) gm/dL Hct (42.0-52.0) % MCV (80.0-105.0) fL MCH (25.0-35.0) pg MCHC (31.0-37.0) g/dl RDW (11.5-14.5) % Plt Count (120.0-450.0) 10^3/uL MPV (7.0-11.0) fl Gran % (50.0-68.0) % Lymph % (Auto) (22.0-35.0) % [place] % (Auto) (1.0-6.0) % Eos % (Auto) (1.5-5.0) % Baso % (Auto) (0.0-3.0) % Gran # (1.4-6.5) Lymph # (1.2-3.4) [place] # (0.1-0.6) Eos # (0.0-0.7) Baso # (0.0-2.0) K/mm3 Sodium 132 (132-148) mmol/L Potassium 4.3 (3.6-5.0) mmol/L Chloride 102 (98-107) mmol/L Carbon Dioxide 18 L (21-33) mmol/L Anion Gap 16 (10-20) BUN 35 H (7-21) mg/dL Creatinine 1.1 (0.5-1.4) mg/dL Est GFR ( Amer) > 60 Est GFR (Non-Af Amer) > 60 POC Glucose (mg/dL) 305 H 359 H (65-110) mg/dL Random Glucose 279 H (70-110) mg/dL Lactic Acid (0.7-2.1) mmol/L Uric Acid (3.5-8.5) mg/dL Calcium 8.4 (8.4-10.5) mg/dL Magnesium (1.7-2.2) mg/dL Total Bilirubin (0.2-1.3) mg/dL Direct Bilirubin (0.0-0.4) mg/dL AST (15-59) U/L ALT (7-56) U/L Alkaline Phosphatase (38-133) U/L Troponin I 0.50 H* D ng/mL Total Protein (5.8-8.3) g/dL Albumin (3.0-4.8) g/dL Globulin gm/dL Albumin/Globulin Ratio (1.1-1.8) Triglycerides (35-160) mg/dL Cholesterol (130-200) mg/dL LDL Cholesterol Direct (0-129) mg/dL HDL Cholesterol (29-60) mg/dL Free T4 (0.78-2.19) ng/dL Thyroxine (T4) (5.5-11.0) ug/dL TSH 3rd Generation (0.46-4.68) mIU/mL Urine Color (YELLOW) Urine Appearance (CLEAR) Urine pH (4.7-8.0) Ur Specific [place] (1.005-1.035) Urine Protein (<30 mg/dL) mg/dL Urine Glucose (UA) (NEGATIVE) mg/dL Urine Ketones (NEGATIVE) mg/dL Urine Blood (NEGATIVE) Urine Nitrate (NEGATIVE) Urine Bilirubin (NEGATIVE) Urine Urobilinogen (<1 E.U./dL) E.U./dL Ur Leukocyte Esterase (NEGATIVE) [place]/uL Urine RBC (0-2) /hpf Urine WBC (0-6) /hpf Ur Epithelial Cells (0-5) /hpf Urine Bacteria (NEG) Urine Opiates Screen (NEGATIVE) Urine Methadone Screen (NEGATIVE) Ur Barbiturates Screen (NEGATIVE) Ur Phencyclidine Scrn (NEGATIVE) Ur Amphetamines Screen (NEGATIVE) U Benzodiazepines Scrn (NEGATIVE) U Oth Cocaine Metabols (NEGATIVE) U Cannabinoids Screen (NEGATIVE) 06/22/17 06/22/17 06/22/17 Range/Units 18:11 17:11 16:07 WBC (4.5-11.0) 10^3/ul RBC (3.5-6.1) 10^6/uL Hgb (14.0-18.0) gm/dL Hct (42.0-52.0) % MCV (80.0-105.0) fL MCH (25.0-35.0) pg MCHC (31.0-37.0) g/dl RDW (11.5-14.5) % Plt Count (120.0-450.0) 10^3/uL MPV (7.0-11.0) fl Gran % (50.0-68.0) % Lymph % (Auto) (22.0-35.0) % [place] % (Auto) (1.0-6.0) % Eos % (Auto) (1.5-5.0) % Baso % (Auto) (0.0-3.0) % Gran # (1.4-6.5) Lymph # (1.2-3.4) [place] # (0.1-0.6) Eos # (0.0-0.7) Baso # (0.0-2.0) K/mm3 Sodium (132-148) mmol/L Potassium (3.6-5.0) mmol/L Chloride (98-107) mmol/L Carbon Dioxide (21-33) mmol/L Anion Gap (10-20) BUN (7-21) mg/dL Creatinine (0.5-1.4) mg/dL Est GFR ( Amer) Est GFR (Non-Af Amer) POC Glucose (mg/dL) 371 H 390 H 464 H* (65-110) mg/dL Random Glucose (70-110) mg/dL Lactic Acid (0.7-2.1) mmol/L Uric Acid (3.5-8.5) mg/dL Calcium (8.4-10.5) mg/dL Magnesium (1.7-2.2) mg/dL Total Bilirubin (0.2-1.3) mg/dL Direct Bilirubin (0.0-0.4) mg/dL AST (15-59) U/L ALT (7-56) U/L Alkaline Phosphatase (38-133) U/L Troponin I ng/mL Total Protein (5.8-8.3) g/dL Albumin (3.0-4.8) g/dL Globulin gm/dL Albumin/Globulin Ratio (1.1-1.8) Triglycerides (35-160) mg/dL Cholesterol (130-200) mg/dL LDL Cholesterol Direct (0-129) mg/dL HDL Cholesterol (29-60) mg/dL Free T4 (0.78-2.19) ng/dL Thyroxine (T4) (5.5-11.0) ug/dL TSH 3rd Generation (0.46-4.68) mIU/mL Urine Color (YELLOW) Urine Appearance (CLEAR) Urine pH (4.7-8.0) Ur Specific [place] (1.005-1.035) Urine Protein (<30 mg/dL) mg/dL Urine Glucose (UA) (NEGATIVE) mg/dL Urine Ketones (NEGATIVE) mg/dL Urine Blood (NEGATIVE) Urine Nitrate (NEGATIVE) Urine Bilirubin (NEGATIVE) Urine Urobilinogen (<1 E.U./dL) E.U./dL Ur Leukocyte Esterase (NEGATIVE) [place]/uL Urine RBC (0-2) /hpf Urine WBC (0-6) /hpf Ur Epithelial Cells (0-5) /hpf Urine Bacteria (NEG) Urine Opiates Screen (NEGATIVE) Urine Methadone Screen (NEGATIVE) Ur Barbiturates Screen (NEGATIVE) Ur Phencyclidine Scrn (NEGATIVE) Ur Amphetamines Screen (NEGATIVE) U Benzodiazepines Scrn (NEGATIVE) U Oth Cocaine Metabols (NEGATIVE) U Cannabinoids Screen (NEGATIVE) 02/24/17 02/24/17 02/24/17 Range/Units 15:11 15:08 15:08 WBC (4.5-11.0) 10^3/ul RBC (3.5-6.1) 10^6/uL Hgb (14.0-18.0) gm/dL Hct (42.0-52.0) % MCV (80.0-105.0) fL MCH (25.0-35.0) pg MCHC (31.0-37.0) g/dl RDW (11.5-14.5) % Plt Count (120.0-450.0) 10^3/uL MPV (7.0-11.0) fl Gran % (50.0-68.0) % Lymph % (Auto) (22.0-35.0) % [place] % (Auto) (1.0-6.0) % Eos % (Auto) (1.5-5.0) % Baso % (Auto) (0.0-3.0) % Gran # (1.4-6.5) Lymph # (1.2-3.4) [place] # (0.1-0.6) Eos # (0.0-0.7) Baso # (0.0-2.0) K/mm3 Sodium (132-148) mmol/L Potassium (3.6-5.0) mmol/L Chloride (98-107) mmol/L Carbon Dioxide (21-33) mmol/L Anion Gap (10-20) BUN (7-21) mg/dL Creatinine (0.5-1.4) mg/dL Est GFR ( Amer) Est GFR (Non-Af Amer) POC Glucose (mg/dL) 472 H* (65-110) mg/dL Random Glucose (70-110) mg/dL Lactic Acid 2.2 H (0.7-2.1) mmol/L Uric Acid 9.0 H (3.5-8.5) mg/dL Calcium (8.4-10.5) mg/dL Magnesium (1.7-2.2) mg/dL Total Bilirubin (0.2-1.3) mg/dL Direct Bilirubin (0.0-0.4) mg/dL AST (15-59) U/L ALT (7-56) U/L Alkaline Phosphatase (38-133) U/L Troponin I ng/mL Total Protein (5.8-8.3) g/dL Albumin (3.0-4.8) g/dL Globulin gm/dL Albumin/Globulin Ratio (1.1-1.8) Triglycerides (35-160) mg/dL Cholesterol (130-200) mg/dL LDL Cholesterol Direct (0-129) mg/dL HDL Cholesterol (29-60) mg/dL Free T4 (0.78-2.19) ng/dL Thyroxine (T4) (5.5-11.0) ug/dL TSH 3rd Generation (0.46-4.68) mIU/mL Urine Color (YELLOW) Urine Appearance (CLEAR) Urine pH (4.7-8.0) Ur Specific [place] (1.005-1.035) Urine Protein (<30 mg/dL) mg/dL Urine Glucose (UA) (NEGATIVE) mg/dL Urine Ketones (NEGATIVE) mg/dL Urine Blood (NEGATIVE) Urine Nitrate (NEGATIVE) Urine Bilirubin (NEGATIVE) Urine Urobilinogen (<1 E.U./dL) E.U./dL Ur Leukocyte Esterase (NEGATIVE) [place]/uL Urine RBC (0-2) /hpf Urine WBC (0-6) /hpf Ur Epithelial Cells (0-5) /hpf Urine Bacteria (NEG) Urine Opiates Screen (NEGATIVE) Urine Methadone Screen (NEGATIVE) Ur Barbiturates Screen (NEGATIVE) Ur Phencyclidine Scrn (NEGATIVE) Ur Amphetamines Screen (NEGATIVE) U Benzodiazepines Scrn (NEGATIVE) U Oth Cocaine Metabols (NEGATIVE) U Cannabinoids Screen (NEGATIVE) 02/24/17 02/24/17 02/24/17 Range/Units 15:08 15:08 14:20 WBC (4.5-11.0) 10^3/ul RBC (3.5-6.1) 10^6/uL Hgb (14.0-18.0) gm/dL Hct (42.0-52.0) % MCV (80.0-105.0) fL MCH (25.0-35.0) pg MCHC (31.0-37.0) g/dl RDW (11.5-14.5) % Plt Count (120.0-450.0) 10^3/uL MPV (7.0-11.0) fl Gran % (50.0-68.0) % Lymph % (Auto) (22.0-35.0) % [place] % (Auto) (1.0-6.0) % Eos % (Auto) (1.5-5.0) % Baso % (Auto) (0.0-3.0) % Gran # (1.4-6.5) Lymph # (1.2-3.4) [place] # (0.1-0.6) Eos # (0.0-0.7) Baso # (0.0-2.0) K/mm3 Sodium 128 L (132-148) mmol/L Potassium 4.5 (3.6-5.0) mmol/L Chloride 96 L (98-107) mmol/L Carbon Dioxide 9 L D (21-33) mmol/L Anion Gap 28 H (10-20) BUN 44 H (7-21) mg/dL Creatinine 1.6 H (0.5-1.4) mg/dL Est GFR ( Amer) 58 Est GFR (Non-Af Amer) 48 POC Glucose (mg/dL) (65-110) mg/dL Random Glucose 611 H* D (70-110) mg/dL Lactic Acid (0.7-2.1) mmol/L Uric Acid (3.5-8.5) mg/dL Calcium 8.4 (8.4-10.5) mg/dL Magnesium (1.7-2.2) mg/dL Total Bilirubin (0.2-1.3) mg/dL Direct Bilirubin (0.0-0.4) mg/dL AST (15-59) U/L ALT (7-56) U/L Alkaline Phosphatase (38-133) U/L Troponin I 0.15 H* ng/mL Total Protein (5.8-8.3) g/dL Albumin (3.0-4.8) g/dL Globulin gm/dL Albumin/Globulin Ratio (1.1-1.8) Triglycerides 101 (35-160) mg/dL Cholesterol 159 (130-200) mg/dL LDL Cholesterol Direct 78 (0-129) mg/dL HDL Cholesterol 57 (29-60) mg/dL Free T4 0.94 (0.78-2.19) ng/dL Thyroxine (T4) 5.1 L (5.5-11.0) ug/dL TSH 3rd Generation 0.50 (0.46-4.68) mIU/mL Urine Color Cancelled (YELLOW) Urine Appearance Cancelled (CLEAR) Urine pH Cancelled (4.7-8.0) Ur Specific [place] Cancelled (1.005-1.035) Urine Protein Cancelled (<30 mg/dL) mg/dL Urine Glucose (UA) Cancelled (NEGATIVE) mg/dL Urine Ketones Cancelled (NEGATIVE) mg/dL Urine Blood Cancelled (NEGATIVE) Urine Nitrate Cancelled (NEGATIVE) Urine Bilirubin Cancelled (NEGATIVE) Urine Urobilinogen Cancelled (<1 E.U./dL) E.U./dL Ur Leukocyte Esterase Cancelled (NEGATIVE) [place]/uL Urine RBC (0-2) /hpf Urine WBC (0-6) /hpf Ur Epithelial Cells (0-5) /hpf Urine Bacteria (NEG) Urine Opiates Screen (NEGATIVE) Urine Methadone Screen (NEGATIVE) Ur Barbiturates Screen (NEGATIVE) Ur Phencyclidine Scrn (NEGATIVE) Ur Amphetamines Screen (NEGATIVE) U Benzodiazepines Scrn (NEGATIVE) U Oth Cocaine Metabols (NEGATIVE) U Cannabinoids Screen (NEGATIVE) 02/24/17 02/24/17 02/24/17 Range/Units 13:55 13:18 13:18 WBC (4.5-11.0) 10^3/ul RBC (3.5-6.1) 10^6/uL Hgb (14.0-18.0) gm/dL Hct (42.0-52.0) % MCV (80.0-105.0) fL MCH (25.0-35.0) pg MCHC (31.0-37.0) g/dl RDW (11.5-14.5) % Plt Count (120.0-450.0) 10^3/uL MPV (7.0-11.0) fl Gran % (50.0-68.0) % Lymph % (Auto) (22.0-35.0) % [place] % (Auto) (1.0-6.0) % Eos % (Auto) (1.5-5.0) % Baso % (Auto) (0.0-3.0) % Gran # (1.4-6.5) Lymph # (1.2-3.4) [place] # (0.1-0.6) Eos # (0.0-0.7) Baso # (0.0-2.0) K/mm3 Sodium (132-148) mmol/L Potassium (3.6-5.0) mmol/L Chloride (98-107) mmol/L Carbon Dioxide (21-33) mmol/L Anion Gap (10-20) BUN (7-21) mg/dL Creatinine (0.5-1.4) mg/dL Est GFR ( Amer) Est GFR (Non-Af Amer) POC Glucose (mg/dL) > 500 H* (65-110) mg/dL Random Glucose (70-110) mg/dL Lactic Acid (0.7-2.1) mmol/L Uric Acid (3.5-8.5) mg/dL Calcium (8.4-10.5) mg/dL Magnesium (1.7-2.2) mg/dL Total Bilirubin (0.2-1.3) mg/dL Direct Bilirubin (0.0-0.4) mg/dL AST (15-59) U/L ALT (7-56) U/L Alkaline Phosphatase (38-133) U/L Troponin I ng/mL Total Protein (5.8-8.3) g/dL Albumin (3.0-4.8) g/dL Globulin gm/dL Albumin/Globulin Ratio (1.1-1.8) Triglycerides (35-160) mg/dL Cholesterol (130-200) mg/dL LDL Cholesterol Direct (0-129) mg/dL HDL Cholesterol (29-60) mg/dL Free T4 (0.78-2.19) ng/dL Thyroxine (T4) (5.5-11.0) ug/dL TSH 3rd Generation (0.46-4.68) mIU/mL Urine Color Yellow (YELLOW) Urine Appearance Clear (CLEAR) Urine pH 6.0 (4.7-8.0) Ur Specific [place] 1.020 (1.005-1.035) Urine Protein Negative (<30 mg/dL) mg/dL Urine Glucose (UA) >=1000 (NEGATIVE) mg/dL Urine Ketones >=80 (NEGATIVE) mg/dL Urine Blood Small H (NEGATIVE) Urine Nitrate Negative (NEGATIVE) Urine Bilirubin Negative (NEGATIVE) Urine Urobilinogen 0.2 (<1 E.U./dL) E.U./dL Ur Leukocyte Esterase Negative (NEGATIVE) [place]/uL Urine RBC 0 - 2 (0-2) /hpf Urine WBC 0 - 2 (0-6) /hpf Ur Epithelial Cells 0 - 2 (0-5) /hpf Urine Bacteria Few (NEG) Urine Opiates Screen Negative (NEGATIVE) Urine Methadone Screen Negative (NEGATIVE) Ur Barbiturates Screen Negative (NEGATIVE) Ur Phencyclidine Scrn Negative (NEGATIVE) Ur Amphetamines Screen Negative (NEGATIVE) U Benzodiazepines Scrn Negative (NEGATIVE) U Oth Cocaine Metabols Negative (NEGATIVE) U Cannabinoids Screen Negative (NEGATIVE) Laboratory Results - last 24 hr 02/24/17 02/24/17 02/24/17 13:18 13:18 13:55 WBC RBC Hgb Hct MCV MCH MCHC RDW Plt Count MPV Gran % Lymph % (Auto) [place] % (Auto) Eos % (Auto) Baso % (Auto) Gran # Lymph # [place] # Eos # Baso # Sodium Potassium Chloride Carbon Dioxide Anion Gap BUN Creatinine Est GFR ( Amer) Est GFR (Non-Af Amer) POC Glucose (mg/dL) > 500 H* Random Glucose Lactic Acid Uric Acid Calcium Magnesium Total Bilirubin Direct Bilirubin AST ALT Alkaline Phosphatase Troponin I Total Protein Albumin Globulin Albumin/Globulin Ratio Triglycerides Cholesterol LDL Cholesterol Direct HDL Cholesterol Free T4 Thyroxine (T4) TSH 3rd Generation Urine Color Yellow Urine Appearance Clear Urine pH 6.0 Ur Specific [place] 1.020 Urine Protein Negative Urine Glucose (UA) >=1000 Urine Ketones >=80 Urine Blood Small H Urine Nitrate Negative Urine Bilirubin Negative Urine Urobilinogen 0.2 Ur Leukocyte Esterase Negative Urine RBC 0 - 2 Urine WBC 0 - 2 Ur Epithelial Cells 0 - 2 Urine Bacteria Few Urine Opiates Screen Negative Urine Methadone Screen Negative Ur Barbiturates Screen Negative Ur Phencyclidine Scrn Negative Ur Amphetamines Screen Negative U Benzodiazepines Scrn Negative U Oth Cocaine Metabols Negative U Cannabinoids Screen Negative 02/24/17 02/24/17 02/24/17 14:20 15:08 15:08 WBC RBC Hgb Hct MCV MCH MCHC RDW Plt Count MPV Gran % Lymph % (Auto) [place] % (Auto) Eos % (Auto) Baso % (Auto) Gran # Lymph # [place] # Eos # Baso # Sodium 128 L Potassium 4.5 Chloride 96 L Carbon Dioxide 9 L D Anion Gap 28 H BUN 44 H Creatinine 1.6 H Est GFR ( Amer) 58 Est GFR (Non-Af Amer) 48 POC Glucose (mg/dL) Random Glucose 611 H* D Lactic Acid Uric Acid Calcium 8.4 Magnesium Total Bilirubin Direct Bilirubin AST ALT Alkaline Phosphatase Troponin I 0.15 H* Total Protein Albumin Globulin Albumin/Globulin Ratio Triglycerides 101 Cholesterol 159 LDL Cholesterol Direct 78 HDL Cholesterol 57 Free T4 0.94 Thyroxine (T4) 5.1 L TSH 3rd Generation 0.50 Urine Color Cancelled Urine Appearance Cancelled Urine pH Cancelled Ur Specific [place] Cancelled Urine Protein Cancelled Urine Glucose (UA) Cancelled Urine Ketones Cancelled Urine Blood Cancelled Urine Nitrate Cancelled Urine Bilirubin Cancelled Urine Urobilinogen Cancelled Ur Leukocyte Esterase Cancelled Urine RBC Urine WBC Ur Epithelial Cells Urine Bacteria Urine Opiates Screen Urine Methadone Screen Ur Barbiturates Screen Ur Phencyclidine Scrn Ur Amphetamines Screen U Benzodiazepines Scrn U Oth Cocaine Metabols U Cannabinoids Screen 02/24/17 02/24/17 02/24/17 15:08 15:08 15:11 WBC RBC Hgb Hct MCV MCH MCHC RDW Plt Count MPV Gran % Lymph % (Auto) [place] % (Auto) Eos % (Auto) Baso % (Auto) Gran # Lymph # [place] # Eos # Baso # Sodium Potassium Chloride Carbon Dioxide Anion Gap BUN Creatinine Est GFR ( Amer) Est GFR (Non-Af Amer) POC Glucose (mg/dL) 472 H* Random Glucose Lactic Acid 2.2 H Uric Acid 9.0 H Calcium Magnesium Total Bilirubin Direct Bilirubin AST ALT Alkaline Phosphatase Troponin I Total Protein Albumin Globulin Albumin/Globulin Ratio Triglycerides Cholesterol LDL Cholesterol Direct HDL Cholesterol Free T4 Thyroxine (T4) TSH 3rd Generation Urine Color Urine Appearance Urine pH Ur Specific [place] Urine Protein Urine Glucose (UA) Urine Ketones Urine Blood Urine Nitrate Urine Bilirubin Urine Urobilinogen Ur Leukocyte Esterase Urine RBC Urine WBC Ur Epithelial Cells Urine Bacteria Urine Opiates Screen Urine Methadone Screen Ur Barbiturates Screen Ur Phencyclidine Scrn Ur Amphetamines Screen U Benzodiazepines Scrn U Oth Cocaine Metabols U Cannabinoids Screen 02/24/17 02/24/17 02/24/17 16:07 17:11 18:11 WBC RBC Hgb Hct MCV MCH MCHC RDW Plt Count MPV Gran % Lymph % (Auto) [place] % (Auto) Eos % (Auto) Baso % (Auto) Gran # Lymph # [place] # Eos # Baso # Sodium Potassium Chloride Carbon Dioxide Anion Gap BUN Creatinine Est GFR ( Amer) Est GFR (Non-Af Amer) POC Glucose (mg/dL) 464 H* 390 H 371 H Random Glucose Lactic Acid Uric Acid Calcium Magnesium Total Bilirubin Direct Bilirubin AST ALT Alkaline Phosphatase Troponin I Total Protein Albumin Globulin Albumin/Globulin Ratio Triglycerides Cholesterol LDL Cholesterol Direct HDL Cholesterol Free T4 Thyroxine (T4) TSH 3rd Generation Urine Color Urine Appearance Urine pH Ur Specific [place] Urine Protein Urine Glucose (UA) Urine Ketones Urine Blood Urine Nitrate Urine Bilirubin Urine Urobilinogen Ur Leukocyte Esterase Urine RBC Urine WBC Ur Epithelial Cells Urine Bacteria Urine Opiates Screen Urine Methadone Screen Ur Barbiturates Screen Ur Phencyclidine Scrn Ur Amphetamines Screen U Benzodiazepines Scrn U Oth Cocaine Metabols U Cannabinoids Screen 02/24/17 02/24/17 02/24/17 19:08 20:09 20:50 WBC RBC Hgb Hct MCV MCH MCHC RDW Plt Count MPV Gran % Lymph % (Auto) [place] % (Auto) Eos % (Auto) Baso % (Auto) Gran # Lymph # [place] # Eos # Baso # Sodium 132 Potassium 4.3 Chloride 102 Carbon Dioxide 18 L Anion Gap 16 BUN 35 H Creatinine 1.1 Est GFR ( Amer) > 60 Est GFR (Non-Af Amer) > 60 POC Glucose (mg/dL) 359 H 305 H Random Glucose 279 H Lactic Acid Uric Acid Calcium 8.4 Magnesium Total Bilirubin Direct Bilirubin AST ALT Alkaline Phosphatase Troponin I 0.50 H* D Total Protein Albumin Globulin Albumin/Globulin Ratio Triglycerides Cholesterol LDL Cholesterol Direct HDL Cholesterol Free T4 Thyroxine (T4) TSH 3rd Generation Urine Color Urine Appearance Urine pH Ur Specific [place] Urine Protein Urine Glucose (UA) Urine Ketones Urine Blood Urine Nitrate Urine Bilirubin Urine Urobilinogen Ur Leukocyte Esterase Urine RBC Urine WBC Ur Epithelial Cells Urine Bacteria Urine Opiates Screen Urine Methadone Screen Ur Barbiturates Screen Ur Phencyclidine Scrn Ur Amphetamines Screen U Benzodiazepines Scrn U Oth Cocaine Metabols U Cannabinoids Screen 02/24/17 02/24/17 02/24/17 21:02 21:39 23:05 WBC RBC Hgb Hct MCV MCH MCHC RDW Plt Count MPV Gran % Lymph % (Auto) [place] % (Auto) Eos % (Auto) Baso % (Auto) Gran # Lymph # [place] # Eos # Baso # Sodium Potassium Chloride Carbon Dioxide Anion Gap BUN Creatinine Est GFR ( Amer) Est GFR (Non-Af Amer) POC Glucose (mg/dL) 307 H 297 H 247 H Random Glucose Lactic Acid Uric Acid Calcium Magnesium Total Bilirubin Direct Bilirubin AST ALT Alkaline Phosphatase Troponin I Total Protein Albumin Globulin Albumin/Globulin Ratio Triglycerides Cholesterol LDL Cholesterol Direct HDL Cholesterol Free T4 Thyroxine (T4) TSH 3rd Generation Urine Color Urine Appearance Urine pH Ur Specific [place] Urine Protein Urine Glucose (UA) Urine Ketones Urine Blood Urine Nitrate Urine Bilirubin Urine Urobilinogen Ur Leukocyte Esterase Urine RBC Urine WBC Ur Epithelial Cells Urine Bacteria Urine Opiates Screen Urine Methadone Screen Ur Barbiturates Screen Ur Phencyclidine Scrn Ur Amphetamines Screen U Benzodiazepines Scrn U Oth Cocaine Metabols U Cannabinoids Screen 02/24/17 02/25/17 02/25/17 23:57 00:10 00:57 WBC RBC Hgb Hct MCV MCH MCHC RDW Plt Count MPV Gran % Lymph % (Auto) [place] % (Auto) Eos % (Auto) Baso % (Auto) Gran # Lymph # [place] # Eos # Baso # Sodium 134 Potassium 3.5 L Chloride 105 Carbon Dioxide 21 Anion Gap 12 BUN 29 H Creatinine 1.0 Est GFR ( Amer) > 60 Est GFR (Non-Af Amer) > 60 POC Glucose (mg/dL) 203 H 157 H Random Glucose 144 H Lactic Acid Uric Acid Calcium 8.6 Magnesium Total Bilirubin Direct Bilirubin AST ALT Alkaline Phosphatase Troponin I Total Protein Albumin Globulin Albumin/Globulin Ratio Triglycerides Cholesterol LDL Cholesterol Direct HDL Cholesterol Free T4 Thyroxine (T4) TSH 3rd Generation Urine Color Urine Appearance Urine pH Ur Specific [place] Urine Protein Urine Glucose (UA) Urine Ketones Urine Blood Urine Nitrate Urine Bilirubin Urine Urobilinogen Ur Leukocyte Esterase Urine RBC Urine WBC Ur Epithelial Cells Urine Bacteria Urine Opiates Screen Urine Methadone Screen Ur Barbiturates Screen Ur Phencyclidine Scrn Ur Amphetamines Screen U Benzodiazepines Scrn U Oth Cocaine Metabols U Cannabinoids Screen 02/25/17 02/25/17 02/25/17 01:50 02:54 03:56 WBC RBC Hgb Hct MCV MCH MCHC RDW Plt Count MPV Gran % Lymph % (Auto) [place] % (Auto) Eos % (Auto) Baso % (Auto) Gran # Lymph # [place] # Eos # Baso # Sodium Potassium Chloride Carbon Dioxide Anion Gap BUN Creatinine Est GFR ( Amer) Est GFR (Non-Af Amer) POC Glucose (mg/dL) 125 H 109 92 Random Glucose Lactic Acid Uric Acid Calcium Magnesium Total Bilirubin Direct Bilirubin AST ALT Alkaline Phosphatase Troponin I Total Protein Albumin Globulin Albumin/Globulin Ratio Triglycerides Cholesterol LDL Cholesterol Direct HDL Cholesterol Free T4 Thyroxine (T4) TSH 3rd Generation Urine Color Urine Appearance Urine pH Ur Specific [place] Urine Protein Urine Glucose (UA) Urine Ketones Urine Blood Urine Nitrate Urine Bilirubin Urine Urobilinogen Ur Leukocyte Esterase Urine RBC Urine WBC Ur Epithelial Cells Urine Bacteria Urine Opiates Screen Urine Methadone Screen Ur Barbiturates Screen Ur Phencyclidine Scrn Ur Amphetamines Screen U Benzodiazepines Scrn U Oth Cocaine Metabols U Cannabinoids Screen 02/25/17 02/25/17 02/25/17 04:55 05:10 05:10 WBC 20.2 H RBC 3.63 Hgb 11.1 L Hct 31.2 L MCV 86.0 MCH 30.6 MCHC 35.6 RDW 13.0 Plt Count 214 MPV 9.2 Gran % 85.3 H Lymph % (Auto) 7.0 L [place] % (Auto) 7.7 H Eos % (Auto) 0.0 L Baso % (Auto) 0.0 Gran # 17.22 H Lymph # 1.4 [place] # 1.6 H Eos # 0.0 Baso # 0.01 Sodium 137 Potassium 3.8 Chloride 109 H Carbon Dioxide 22 Anion Gap 10 BUN 24 H Creatinine 0.8 Est GFR ( Amer) > 60 Est GFR (Non-Af Amer) > 60 POC Glucose (mg/dL) 104 Random Glucose 100 Lactic Acid Uric Acid Calcium 8.4 Magnesium 2.3 H Total Bilirubin 1.2 Direct Bilirubin 0.3 AST 45 ALT 40 Alkaline Phosphatase 53 Troponin I 0.44 H* Total Protein 5.3 L Albumin 3.3 Globulin 2.1 Albumin/Globulin Ratio 1.6 Triglycerides Cholesterol LDL Cholesterol Direct HDL Cholesterol Free T4 Thyroxine (T4) TSH 3rd Generation Urine Color Urine Appearance Urine pH Ur Specific [place] Urine Protein Urine Glucose (UA) Urine Ketones Urine Blood Urine Nitrate Urine Bilirubin Urine Urobilinogen Ur Leukocyte Esterase Urine RBC Urine WBC Ur Epithelial Cells Urine Bacteria Urine Opiates Screen Urine Methadone Screen Ur Barbiturates Screen Ur Phencyclidine Scrn Ur Amphetamines Screen U Benzodiazepines Scrn U Oth Cocaine Metabols U Cannabinoids Screen 02/25/17 02/25/17 02/25/17 05:55 06:54 08:00 WBC RBC Hgb Hct MCV MCH MCHC RDW Plt Count MPV Gran % Lymph % (Auto) [place] % (Auto) Eos % (Auto) Baso % (Auto) Gran # Lymph # [place] # Eos # Baso # Sodium Potassium Chloride Carbon Dioxide Anion Gap BUN Creatinine Est GFR ( Amer) Est GFR (Non-Af Amer) POC Glucose (mg/dL) 115 H 202 H 297 H Random Glucose Lactic Acid Uric Acid Calcium Magnesium Total Bilirubin Direct Bilirubin AST ALT Alkaline Phosphatase Troponin I Total Protein Albumin Globulin Albumin/Globulin Ratio Triglycerides Cholesterol LDL Cholesterol Direct HDL Cholesterol Free T4 Thyroxine (T4) TSH 3rd Generation Urine Color Urine Appearance Urine pH Ur Specific [place] Urine Protein Urine Glucose (UA) Urine Ketones Urine Blood Urine Nitrate Urine Bilirubin Urine Urobilinogen Ur Leukocyte Esterase Urine RBC Urine WBC Ur Epithelial Cells Urine Bacteria Urine Opiates Screen Urine Methadone Screen Ur Barbiturates Screen Ur Phencyclidine Scrn Ur Amphetamines Screen U Benzodiazepines Scrn U Oth Cocaine Metabols U Cannabinoids Screen Fingerstick Blood Sugar Results: 297 Review of Systems - Review of Systems All systems: reviewed and no additional remarkable complaints except Critical Care Progress Note - Extremities/Vascular Does the Patient have a Central Venous Catheter?: No Does the Patient need a Central Venous Catheter?: No Does the Patient have a Hebert Catheter?: No Does the Patient need a Hebert Catheter?: No - Prophylaxis GI Prophylaxis GI: PPI - Prophylaxis DVT Prophylaxis DVT: SCDs - Nutrition Nutrition: Nutrition Category Date Time Status Liquid Diet [DIET] Diets 02/24/17 Dinner Ordered Assessment/Plan - Assessment and Plan (Free Text) Assessment: This is a 41m with a PMH of Type 1 DM with resolved DKA, on admission blood glucose 937, pH 7.06, anion gap 34 Neuro: AAOX3, No acute disease processes CV: hemodynamically stable, trops X 3 lightly positive (0.44) unlikely NSTEMI, however do cardiovascular risks associated with DM, pt may benefit from a statin after discharge from ICU Pulm: No active disease processes Heme: Hgb and Platelet decreased likely dilutional ID: WBC 19.1 -->20.2 urine, and blood cultures pending, empiric zosyn per ID GI: Zofran for nausea, D5 1/2 @ 150, trial of carb consistent diet : Bun/Cr normalized likely secondary to establishment of euvolemia; will continue with IVF Endo: euglycemia achieved, anion gap closed; will switch to home insulin pump and long acting insulin, Accuchecks Q1 Will discuss with Dr. Trey Kirby PGY-1 <Trey ALLEN,Fabiola H - Last Filed: 02/25/17 15:15> CCU Objective - Vital Signs / Intake & Output Vital Signs (Last 4 hours): Vital Signs Temp Pulse Resp BP 02/25/17 14:13 98 H 38 H 02/25/17 14:12 93 H 24 02/25/17 14:11 99 H 30 H 02/25/17 14:00 74 02/25/17 13:47 89 23 02/25/17 13:46 88 19 02/25/17 13:45 88 20 02/25/17 13:44 88 20 02/25/17 13:43 89 18 02/25/17 13:42 87 23 02/25/17 13:41 87 29 H 02/25/17 13:40 85 26 H 02/25/17 13:39 95 H 22 02/25/17 13:38 95 H 20 02/25/17 13:37 97 H 18 02/25/17 13:36 99 H 32 H 02/25/17 13:35 87 62 H 02/25/17 13:34 89 24 02/25/17 13:33 90 22 02/25/17 13:32 88 17 02/25/17 13:31 87 17 02/25/17 13:30 88 22 02/25/17 13:29 92 H 42 H 02/25/17 13:28 89 23 02/25/17 13:27 93 H 26 H 02/25/17 13:26 89 21 02/25/17 13:25 85 38 H 02/25/17 13:24 87 27 H 02/25/17 13:02 86 19 02/25/17 13:01 86 21 02/25/17 13:00 88 17 02/25/17 12:59 86 23 02/25/17 12:58 93 H 21 02/25/17 12:57 96 H 29 H 02/25/17 12:56 91 H 17 02/25/17 12:55 91 H 21 02/25/17 12:54 91 H 14 02/25/17 12:53 88 21 02/25/17 12:52 90 22 02/25/17 12:51 86 21 02/25/17 12:50 88 19 02/25/17 12:49 84 19 02/25/17 12:48 91 H 24 02/25/17 12:47 87 19 02/25/17 12:46 86 13 02/25/17 12:45 90 21 02/25/17 12:44 89 16 02/25/17 12:43 88 21 02/25/17 12:42 86 20 02/25/17 12:41 87 18 02/25/17 12:40 88 22 02/25/17 12:39 86 19 02/25/17 12:38 86 19 02/25/17 12:37 89 27 H 02/25/17 12:36 88 20 02/25/17 12:35 98.4 F 98 H 18 123/59 L 02/25/17 12:30 85 23 02/25/17 12:29 84 25 H 02/25/17 12:28 90 22 02/25/17 12:27 88 16 02/25/17 12:26 88 25 H 02/25/17 12:25 92 H 16 02/25/17 12:24 94 H 25 H 02/25/17 12:23 92 H 15 02/25/17 12:22 92 H 23 02/25/17 12:21 92 H 02/25/17 12:13 100 H 41 H 02/25/17 12:12 85 32 H 02/25/17 12:11 92 H 22 02/25/17 12:10 92 H 31 H 02/25/17 12:09 93 H 22 02/25/17 12:08 90 23 02/25/17 12:07 88 24 02/25/17 12:06 93 H 25 H 02/25/17 12:05 86 24 02/25/17 12:04 85 22 02/25/17 12:03 84 22 02/25/17 12:02 86 22 02/25/17 12:01 91 H 29 H 02/25/17 12:00 89 29 H 02/25/17 11:59 91 H 30 H 02/25/17 11:58 92 H 42 H 02/25/17 11:57 86 55 H Intake and Output (Last 8hrs): Intake & Output 02/25/17 02/25/17 02/25/17 06:59 14:59 22:59 Intake Total 2668 Output Total 1550 Balance 1118 Intake: IV 2318 lac 2300 rac 0 Oral 350 Output: Urine 1550 Urine, Voided 1550 Other: Voiding Method Urinal # Voids Urine, Voided 4 # Bowel Movements 1 - Medications Active Medications: Active Medications Generic Name Dose Route Start Last Admin Trade Name Freq PRN Reason Stop Dose Admin Insulin Human Regular 100 100 mls @ 7 mls/hr 02/24/17 11:54 02/25/17 04:00 units/ Sodium Chloride IV 0 units/hr .[id number] PRN 0 mls/hr TITRATE PER MD ORDER Titration Protocol 7 UNITS/HR Potassium Chloride 10 meq/ 1,005 mls @ 150 mls/hr 02/25/17 00:45 02/25/17 09: 00 Dextrose/Sodium Chloride IV 150 mls/hr .[id number] NARA Administration Piperacillin Sod/Tazobactam Sod 100 mls @ 200 mls/hr 02/25/17 06:00 02/25/17 12:26 Zosyn 3.375 In Ns 100ml IVPB 03/05/17 20:54 200 mls/hr Q6 NARA Administration Protocol Insulin Human Regular 0 units 02/25/17 11:30 02/25/17 12:26 Humulin R Med SC 8 units ACHS NARA Administration Protocol Metoclopramide HCl 10 mg 02/24/17 18:30 02/25/17 12:27 Reglan IVP 10 mg Q6H NARA Administration Ondansetron HCl 4 mg 02/24/17 14:14 Zofran Inj IVP Q4H PRN Nausea/Vomiting Pantoprazole Sodium 40 mg 02/24/17 13:45 02/25/17 10:35 Protonix Inj IVP 40 mg DAILY NARA Administration - Patient Studies Lab Studies: Lab Studies 02/25/17 02/25/17 02/25/17 Range/Units 11:29 09:00 08:00 WBC (4.5-11.0) 10^3/ul RBC (3.5-6.1) 10^6/uL Hgb (14.0-18.0) gm/dL Hct (42.0-52.0) % MCV (80.0-105.0) fL MCH (25.0-35.0) pg MCHC (31.0-37.0) g/dl RDW (11.5-14.5) % Plt Count (120.0-450.0) 10^3/uL MPV (7.0-11.0) fl Gran % (50.0-68.0) % Lymph % (Auto) (22.0-35.0) % [place] % (Auto) (1.0-6.0) % Eos % (Auto) (1.5-5.0) % Baso % (Auto) (0.0-3.0) % Gran # (1.4-6.5) Lymph # (1.2-3.4) [place] # (0.1-0.6) Eos # (0.0-0.7) Baso # (0.0-2.0) K/mm3 Sodium (132-148) mmol/L Potassium (3.6-5.0) mmol/L Chloride (98-107) mmol/L Carbon Dioxide (21-33) mmol/L Anion Gap (10-20) BUN (7-21) mg/dL Creatinine (0.5-1.4) mg/dL Est GFR ( Amer) Est GFR (Non-Af Amer) POC Glucose (mg/dL) 393 H 322 H 297 H (65-110) mg/dL Random Glucose (70-110) mg/dL Hemoglobin A1c (4.2-6.5) % Lactic Acid (0.7-2.1) mmol/L Uric Acid (3.5-8.5) mg/dL Calcium (8.4-10.5) mg/dL Magnesium (1.7-2.2) mg/dL Total Bilirubin (0.2-1.3) mg/dL Direct Bilirubin (0.0-0.4) mg/dL AST (15-59) U/L ALT (7-56) U/L Alkaline Phosphatase (38-133) U/L Troponin I ng/mL Total Protein (5.8-8.3) g/dL Albumin (3.0-4.8) g/dL Globulin gm/dL Albumin/Globulin Ratio (1.1-1.8) Triglycerides (35-160) mg/dL Cholesterol (130-200) mg/dL LDL Cholesterol Direct (0-129) mg/dL HDL Cholesterol (29-60) mg/dL Free T4 (0.78-2.19) ng/dL Thyroxine (T4) (5.5-11.0) ug/dL TSH 3rd Generation (0.46-4.68) mIU/mL Hepatitis A IgM Ab (NEGATIVE) Hep Bs Antigen (NEGATIVE) Hep B Core IgM Ab (NEGATIVE) 02/25/17 02/25/1717 Range/Units 07:00 06:54 05:55 WBC (4.5-11.0) 10^3/ul RBC (3.5-6.1) 10^6/uL Hgb (14.0-18.0) gm/dL Hct (42.0-52.0) % MCV (80.0-105.0) fL MCH (25.0-35.0) pg MCHC (31.0-37.0) g/dl RDW (11.5-14.5) % Plt Count (120.0-450.0) 10^3/uL MPV (7.0-11.0) fl Gran % (50.0-68.0) % Lymph % (Auto) (22.0-35.0) % [place] % (Auto) (1.0-6.0) % Eos % (Auto) (1.5-5.0) % Baso % (Auto) (0.0-3.0) % Gran # (1.4-6.5) Lymph # (1.2-3.4) [place] # (0.1-0.6) Eos # (0.0-0.7) Baso # (0.0-2.0) K/mm3 Sodium 132 (132-148) mmol/L Potassium 3.9 (3.6-5.0) mmol/L Chloride 102 (98-107) mmol/L Carbon Dioxide 20 L (21-33) mmol/L Anion Gap 14 (10-20) BUN 20 (7-21) mg/dL Creatinine 0.8 (0.5-1.4) mg/dL Est GFR ( Amer) > 60 Est GFR (Non-Af Amer) > 60 POC Glucose (mg/dL) 202 H 115 H (65-110) mg/dL Random Glucose 276 H (70-110) mg/dL Hemoglobin A1c (4.2-6.5) % Lactic Acid (0.7-2.1) mmol/L Uric Acid (3.5-8.5) mg/dL Calcium 8.6 (8.4-10.5) mg/dL Magnesium (1.7-2.2) mg/dL Total Bilirubin (0.2-1.3) mg/dL Direct Bilirubin (0.0-0.4) mg/dL AST (15-59) U/L ALT (7-56) U/L Alkaline Phosphatase (38-133) U/L Troponin I ng/mL Total Protein (5.8-8.3) g/dL Albumin (3.0-4.8) g/dL Globulin gm/dL Albumin/Globulin Ratio (1.1-1.8) Triglycerides (35-160) mg/dL Cholesterol (130-200) mg/dL LDL Cholesterol Direct (0-129) mg/dL HDL Cholesterol (29-60) mg/dL Free T4 (0.78-2.19) ng/dL Thyroxine (T4) (5.5-11.0) ug/dL TSH 3rd Generation (0.46-4.68) mIU/mL Hepatitis A IgM Ab (NEGATIVE) Hep Bs Antigen (NEGATIVE) Hep B Core IgM Ab (NEGATIVE) 02/25/17 02/25/17 02/25/17 Range/Units 05:10 05:10 05:10 WBC 20.2 H (4.5-11.0) 10^3/ul RBC 3.63 (3.5-6.1) 10^6/uL Hgb 11.1 L (14.0-18.0) gm/dL Hct 31.2 L (42.0-52.0) % MCV 86.0 (80.0-105.0) fL MCH 30.6 (25.0-35.0) pg MCHC 35.6 (31.0-37.0) g/dl RDW 13.0 (11.5-14.5) % Plt Count 214 (120.0-450.0) 10^3/uL MPV 9.2 (7.0-11.0) fl Gran % 85.3 H (50.0-68.0) % Lymph % (Auto) 7.0 L (22.0-35.0) % [place] % (Auto) 7.7 H (1.0-6.0) % Eos % (Auto) 0.0 L (1.5-5.0) % Baso % (Auto) 0.0 (0.0-3.0) % Gran # 17.22 H (1.4-6.5) Lymph # 1.4 (1.2-3.4) [place] # 1.6 H (0.1-0.6) Eos # 0.0 (0.0-0.7) Baso # 0.01 (0.0-2.0) K/mm3 Sodium (132-148) mmol/L Potassium (3.6-5.0) mmol/L Chloride (98-107) mmol/L Carbon Dioxide (21-33) mmol/L Anion Gap (10-20) BUN (7-21) mg/dL Creatinine (0.5-1.4) mg/dL Est GFR ( Amer) Est GFR (Non-Af Amer) POC Glucose (mg/dL) (65-110) mg/dL Random Glucose (70-110) mg/dL Hemoglobin A1c 7.4 H (4.2-6.5) % Lactic Acid (0.7-2.1) mmol/L Uric Acid (3.5-8.5) mg/dL Calcium (8.4-10.5) mg/dL Magnesium (1.7-2.2) mg/dL Total Bilirubin (0.2-1.3) mg/dL Direct Bilirubin (0.0-0.4) mg/dL AST (15-59) U/L ALT (7-56) U/L Alkaline Phosphatase (38-133) U/L Troponin I ng/mL Total Protein (5.8-8.3) g/dL Albumin (3.0-4.8) g/dL Globulin gm/dL Albumin/Globulin Ratio (1.1-1.8) Triglycerides (35-160) mg/dL Cholesterol (130-200) mg/dL LDL Cholesterol Direct (0-129) mg/dL HDL Cholesterol (29-60) mg/dL Free T4 (0.78-2.19) ng/dL Thyroxine (T4) (5.5-11.0) ug/dL TSH 3rd Generation (0.46-4.68) mIU/mL Hepatitis A IgM Ab Negative (NEGATIVE) Hep Bs Antigen Negative (NEGATIVE) Hep B Core IgM Ab Negative (NEGATIVE) 02/25/17 02/25/17 02/25/17 Range/Units 05:10 04:55 03:56 WBC (4.5-11.0) 10^3/ul RBC (3.5-6.1) 10^6/uL Hgb (14.0-18.0) gm/dL Hct (42.0-52.0) % MCV (80.0-105.0) fL MCH (25.0-35.0) pg MCHC (31.0-37.0) g/dl RDW (11.5-14.5) % Plt Count (120.0-450.0) 10^3/uL MPV (7.0-11.0) fl Gran % (50.0-68.0) % Lymph % (Auto) (22.0-35.0) % [place] % (Auto) (1.0-6.0) % Eos % (Auto) (1.5-5.0) % Baso % (Auto) (0.0-3.0) % Gran # (1.4-6.5) Lymph # (1.2-3.4) [place] # (0.1-0.6) Eos # (0.0-0.7) Baso # (0.0-2.0) K/mm3 Sodium 137 (132-148) mmol/L Potassium 3.8 (3.6-5.0) mmol/L Chloride 109 H (98-107) mmol/L Carbon Dioxide 22 (21-33) mmol/L Anion Gap 10 (10-20) BUN 24 H (7-21) mg/dL Creatinine 0.8 (0.5-1.4) mg/dL Est GFR ( Amer) > 60 Est GFR (Non-Af Amer) > 60 POC Glucose (mg/dL) 104 92 (65-110) mg/dL Random Glucose 100 (70-110) mg/dL Hemoglobin A1c (4.2-6.5) % Lactic Acid (0.7-2.1) mmol/L Uric Acid (3.5-8.5) mg/dL Calcium 8.4 (8.4-10.5) mg/dL Magnesium 2.3 H (1.7-2.2) mg/dL Total Bilirubin 1.2 (0.2-1.3) mg/dL Direct Bilirubin 0.3 (0.0-0.4) mg/dL AST 45 (15-59) U/L ALT 40 (7-56) U/L Alkaline Phosphatase 53 (38-133) U/L Troponin I 0.44 H* ng/mL Total Protein 5.3 L (5.8-8.3) g/dL Albumin 3.3 (3.0-4.8) g/dL Globulin 2.1 gm/dL Albumin/Globulin Ratio 1.6 (1.1-1.8) Triglycerides (35-160) mg/dL Cholesterol (130-200) mg/dL LDL Cholesterol Direct (0-129) mg/dL HDL Cholesterol (29-60) mg/dL Free T4 (0.78-2.19) ng/dL Thyroxine (T4) (5.5-11.0) ug/dL TSH 3rd Generation (0.46-4.68) mIU/mL Hepatitis A IgM Ab (NEGATIVE) Hep Bs Antigen (NEGATIVE) Hep B Core IgM Ab (NEGATIVE) 02/25/17 02/25/17 02/25/17 Range/Units 02:54 01:50 00:57 WBC (4.5-11.0) 10^3/ul RBC (3.5-6.1) 10^6/uL Hgb (14.0-18.0) gm/dL Hct (42.0-52.0) % MCV (80.0-105.0) fL MCH (25.0-35.0) pg MCHC (31.0-37.0) g/dl RDW (11.5-14.5) % Plt Count (120.0-450.0) 10^3/uL MPV (7.0-11.0) fl Gran % (50.0-68.0) % Lymph % (Auto) (22.0-35.0) % [place] % (Auto) (1.0-6.0) % Eos % (Auto) (1.5-5.0) % Baso % (Auto) (0.0-3.0) % Gran # (1.4-6.5) Lymph # (1.2-3.4) [place] # (0.1-0.6) Eos # (0.0-0.7) Baso # (0.0-2.0) K/mm3 Sodium (132-148) mmol/L Potassium (3.6-5.0) mmol/L Chloride (98-107) mmol/L Carbon Dioxide (21-33) mmol/L Anion Gap (10-20) BUN (7-21) mg/dL Creatinine (0.5-1.4) mg/dL Est GFR ( Amer) Est GFR (Non-Af Amer) POC Glucose (mg/dL) 109 125 H 157 H (65-110) mg/dL Random Glucose (70-110) mg/dL Hemoglobin A1c (4.2-6.5) % Lactic Acid (0.7-2.1) mmol/L Uric Acid (3.5-8.5) mg/dL Calcium (8.4-10.5) mg/dL Magnesium (1.7-2.2) mg/dL Total Bilirubin (0.2-1.3) mg/dL Direct Bilirubin (0.0-0.4) mg/dL AST (15-59) U/L ALT (7-56) U/L Alkaline Phosphatase (38-133) U/L Troponin I ng/mL Total Protein (5.8-8.3) g/dL Albumin (3.0-4.8) g/dL Globulin gm/dL Albumin/Globulin Ratio (1.1-1.8) Triglycerides (35-160) mg/dL Cholesterol (130-200) mg/dL LDL Cholesterol Direct (0-129) mg/dL HDL Cholesterol (29-60) mg/dL Free T4 (0.78-2.19) ng/dL Thyroxine (T4) (5.5-11.0) ug/dL TSH 3rd Generation (0.46-4.68) mIU/mL Hepatitis A IgM Ab (NEGATIVE) Hep Bs Antigen (NEGATIVE) Hep B Core IgM Ab (NEGATIVE) 02/25/17 02/24/17 02/24/17 Range/Units 00:10 23:57 23:05 WBC (4.5-11.0) 10^3/ul RBC (3.5-6.1) 10^6/uL Hgb (14.0-18.0) gm/dL Hct (42.0-52.0) % MCV (80.0-105.0) fL MCH (25.0-35.0) pg MCHC (31.0-37.0) g/dl RDW (11.5-14.5) % Plt Count (120.0-450.0) 10^3/uL MPV (7.0-11.0) fl Gran % (50.0-68.0) % Lymph % (Auto) (22.0-35.0) % [place] % (Auto) (1.0-6.0) % Eos % (Auto) (1.5-5.0) % Baso % (Auto) (0.0-3.0) % Gran # (1.4-6.5) Lymph # (1.2-3.4) [place] # (0.1-0.6) Eos # (0.0-0.7) Baso # (0.0-2.0) K/mm3 Sodium 134 (132-148) mmol/L Potassium 3.5 L (3.6-5.0) mmol/L Chloride 105 (98-107) mmol/L Carbon Dioxide 21 (21-33) mmol/L Anion Gap 12 (10-20) BUN 29 H (7-21) mg/dL Creatinine 1.0 (0.5-1.4) mg/dL Est GFR ( Amer) > 60 Est GFR (Non-Af Amer) > 60 POC Glucose (mg/dL) 203 H 247 H (65-110) mg/dL Random Glucose 144 H (70-110) mg/dL Hemoglobin A1c (4.2-6.5) % Lactic Acid (0.7-2.1) mmol/L Uric Acid (3.5-8.5) mg/dL Calcium 8.6 (8.4-10.5) mg/dL Magnesium (1.7-2.2) mg/dL Total Bilirubin (0.2-1.3) mg/dL Direct Bilirubin (0.0-0.4) mg/dL AST (15-59) U/L ALT (7-56) U/L Alkaline Phosphatase (38-133) U/L Troponin I ng/mL Total Protein (5.8-8.3) g/dL Albumin (3.0-4.8) g/dL Globulin gm/dL Albumin/Globulin Ratio (1.1-1.8) Triglycerides (35-160) mg/dL Cholesterol (130-200) mg/dL LDL Cholesterol Direct (0-129) mg/dL HDL Cholesterol (29-60) mg/dL Free T4 (0.78-2.19) ng/dL Thyroxine (T4) (5.5-11.0) ug/dL TSH 3rd Generation (0.46-4.68) mIU/mL Hepatitis A IgM Ab (NEGATIVE) Hep Bs Antigen (NEGATIVE) Hep B Core IgM Ab (NEGATIVE) 02/24/17 02/24/17 02/24/17 Range/Units 21:39 21:02 20:50 WBC (4.5-11.0) 10^3/ul RBC (3.5-6.1) 10^6/uL Hgb (14.0-18.0) gm/dL Hct (42.0-52.0) % MCV (80.0-105.0) fL MCH (25.0-35.0) pg MCHC (31.0-37.0) g/dl RDW (11.5-14.5) % Plt Count (120.0-450.0) 10^3/uL MPV (7.0-11.0) fl Gran % (50.0-68.0) % Lymph % (Auto) (22.0-35.0) % [place] % (Auto) (1.0-6.0) % Eos % (Auto) (1.5-5.0) % Baso % (Auto) (0.0-3.0) % Gran # (1.4-6.5) Lymph # (1.2-3.4) [place] # (0.1-0.6) Eos # (0.0-0.7) Baso # (0.0-2.0) K/mm3 Sodium 132 (132-148) mmol/L Potassium 4.3 (3.6-5.0) mmol/L Chloride 102 (98-107) mmol/L Carbon Dioxide 18 L (21-33) mmol/L Anion Gap 16 (10-20) BUN 35 H (7-21) mg/dL Creatinine 1.1 (0.5-1.4) mg/dL Est GFR ( Amer) > 60 Est GFR (Non-Af Amer) > 60 POC Glucose (mg/dL) 297 H 307 H (65-110) mg/dL Random Glucose 279 H (70-110) mg/dL Hemoglobin A1c (4.2-6.5) % Lactic Acid (0.7-2.1) mmol/L Uric Acid (3.5-8.5) mg/dL Calcium 8.4 (8.4-10.5) mg/dL Magnesium (1.7-2.2) mg/dL Total Bilirubin (0.2-1.3) mg/dL Direct Bilirubin (0.0-0.4) mg/dL AST (15-59) U/L ALT (7-56) U/L Alkaline Phosphatase (38-133) U/L Troponin I 0.50 H* D ng/mL Total Protein (5.8-8.3) g/dL Albumin (3.0-4.8) g/dL Globulin gm/dL Albumin/Globulin Ratio (1.1-1.8) Triglycerides (35-160) mg/dL Cholesterol (130-200) mg/dL LDL Cholesterol Direct (0-129) mg/dL HDL Cholesterol (29-60) mg/dL Free T4 (0.78-2.19) ng/dL Thyroxine (T4) (5.5-11.0) ug/dL TSH 3rd Generation (0.46-4.68) mIU/mL Hepatitis A IgM Ab (NEGATIVE) Hep Bs Antigen (NEGATIVE) Hep B Core IgM Ab (NEGATIVE) 02/24/17 02/24/17 02/24/17 Range/Units 20:09 19:08 18:11 WBC (4.5-11.0) 10^3/ul RBC (3.5-6.1) 10^6/uL Hgb (14.0-18.0) gm/dL Hct (42.0-52.0) % MCV (80.0-105.0) fL MCH (25.0-35.0) pg MCHC (31.0-37.0) g/dl RDW (11.5-14.5) % Plt Count (120.0-450.0) 10^3/uL MPV (7.0-11.0) fl Gran % (50.0-68.0) % Lymph % (Auto) (22.0-35.0) % [place] % (Auto) (1.0-6.0) % Eos % (Auto) (1.5-5.0) % Baso % (Auto) (0.0-3.0) % Gran # (1.4-6.5) Lymph # (1.2-3.4) [place] # (0.1-0.6) Eos # (0.0-0.7) Baso # (0.0-2.0) K/mm3 Sodium (132-148) mmol/L Potassium (3.6-5.0) mmol/L Chloride (98-107) mmol/L Carbon Dioxide (21-33) mmol/L Anion Gap (10-20) BUN (7-21) mg/dL Creatinine (0.5-1.4) mg/dL Est GFR ( Amer) Est GFR (Non-Af Amer) POC Glucose (mg/dL) 305 H 359 H 371 H (65-110) mg/dL Random Glucose (70-110) mg/dL Hemoglobin A1c (4.2-6.5) % Lactic Acid (0.7-2.1) mmol/L Uric Acid (3.5-8.5) mg/dL Calcium (8.4-10.5) mg/dL Magnesium (1.7-2.2) mg/dL Total Bilirubin (0.2-1.3) mg/dL Direct Bilirubin (0.0-0.4) mg/dL AST (15-59) U/L ALT (7-56) U/L Alkaline Phosphatase (38-133) U/L Troponin I ng/mL Total Protein (5.8-8.3) g/dL Albumin (3.0-4.8) g/dL Globulin gm/dL Albumin/Globulin Ratio (1.1-1.8) Triglycerides (35-160) mg/dL Cholesterol (130-200) mg/dL LDL Cholesterol Direct (0-129) mg/dL HDL Cholesterol (29-60) mg/dL Free T4 (0.78-2.19) ng/dL Thyroxine (T4) (5.5-11.0) ug/dL TSH 3rd Generation (0.46-4.68) mIU/mL Hepatitis A IgM Ab (NEGATIVE) Hep Bs Antigen (NEGATIVE) Hep B Core IgM Ab (NEGATIVE) 02/24/17 02/24/17 02/24/17 Range/Units 17:11 16:07 15:11 WBC (4.5-11.0) 10^3/ul RBC (3.5-6.1) 10^6/uL Hgb (14.0-18.0) gm/dL Hct (42.0-52.0) % MCV (80.0-105.0) fL MCH (25.0-35.0) pg MCHC (31.0-37.0) g/dl RDW (11.5-14.5) % Plt Count (120.0-450.0) 10^3/uL MPV (7.0-11.0) fl Gran % (50.0-68.0) % Lymph % (Auto) (22.0-35.0) % [place] % (Auto) (1.0-6.0) % Eos % (Auto) (1.5-5.0) % Baso % (Auto) (0.0-3.0) % Gran # (1.4-6.5) Lymph # (1.2-3.4) [place] # (0.1-0.6) Eos # (0.0-0.7) Baso # (0.0-2.0) K/mm3 Sodium (132-148) mmol/L Potassium (3.6-5.0) mmol/L Chloride (98-107) mmol/L Carbon Dioxide (21-33) mmol/L Anion Gap (10-20) BUN (7-21) mg/dL Creatinine (0.5-1.4) mg/dL Est GFR ( Amer) Est GFR (Non-Af Amer) POC Glucose (mg/dL) 390 H 464 H* 472 H* (65-110) mg/dL Random Glucose (70-110) mg/dL Hemoglobin A1c (4.2-6.5) % Lactic Acid (0.7-2.1) mmol/L Uric Acid (3.5-8.5) mg/dL Calcium (8.4-10.5) mg/dL Magnesium (1.7-2.2) mg/dL Total Bilirubin (0.2-1.3) mg/dL Direct Bilirubin (0.0-0.4) mg/dL AST (15-59) U/L ALT (7-56) U/L Alkaline Phosphatase (38-133) U/L Troponin I ng/mL Total Protein (5.8-8.3) g/dL Albumin (3.0-4.8) g/dL Globulin gm/dL Albumin/Globulin Ratio (1.1-1.8) Triglycerides (35-160) mg/dL Cholesterol (130-200) mg/dL LDL Cholesterol Direct (0-129) mg/dL HDL Cholesterol (29-60) mg/dL Free T4 (0.78-2.19) ng/dL Thyroxine (T4) (5.5-11.0) ug/dL TSH 3rd Generation (0.46-4.68) mIU/mL Hepatitis A IgM Ab (NEGATIVE) Hep Bs Antigen (NEGATIVE) Hep B Core IgM Ab (NEGATIVE) 02/24/17 02/24/17 02/24/17 Range/Units 15:08 15:08 15:08 WBC (4.5-11.0) 10^3/ul RBC (3.5-6.1) 10^6/uL Hgb (14.0-18.0) gm/dL Hct (42.0-52.0) % MCV (80.0-105.0) fL MCH (25.0-35.0) pg MCHC (31.0-37.0) g/dl RDW (11.5-14.5) % Plt Count (120.0-450.0) 10^3/uL MPV (7.0-11.0) fl Gran % (50.0-68.0) % Lymph % (Auto) (22.0-35.0) % [place] % (Auto) (1.0-6.0) % Eos % (Auto) (1.5-5.0) % Baso % (Auto) (0.0-3.0) % Gran # (1.4-6.5) Lymph # (1.2-3.4) [place] # (0.1-0.6) Eos # (0.0-0.7) Baso # (0.0-2.0) K/mm3 Sodium (132-148) mmol/L Potassium (3.6-5.0) mmol/L Chloride (98-107) mmol/L Carbon Dioxide (21-33) mmol/L Anion Gap (10-20) BUN (7-21) mg/dL Creatinine (0.5-1.4) mg/dL Est GFR ( Amer) Est GFR (Non-Af Amer) POC Glucose (mg/dL) (65-110) mg/dL Random Glucose (70-110) mg/dL Hemoglobin A1c (4.2-6.5) % Lactic Acid 2.2 H (0.7-2.1) mmol/L Uric Acid 9.0 H (3.5-8.5) mg/dL Calcium (8.4-10.5) mg/dL Magnesium (1.7-2.2) mg/dL Total Bilirubin (0.2-1.3) mg/dL Direct Bilirubin (0.0-0.4) mg/dL AST (15-59) U/L ALT (7-56) U/L Alkaline Phosphatase (38-133) U/L Troponin I ng/mL Total Protein (5.8-8.3) g/dL Albumin (3.0-4.8) g/dL Globulin gm/dL Albumin/Globulin Ratio (1.1-1.8) Triglycerides (35-160) mg/dL Cholesterol (130-200) mg/dL LDL Cholesterol Direct (0-129) mg/dL HDL Cholesterol (29-60) mg/dL Free T4 0.94 (0.78-2.19) ng/dL Thyroxine (T4) 5.1 L (5.5-11.0) ug/dL TSH 3rd Generation 0.50 (0.46-4.68) mIU/mL Hepatitis A IgM Ab (NEGATIVE) Hep Bs Antigen (NEGATIVE) Hep B Core IgM Ab (NEGATIVE) 02/24/17 02/24/17 Range/Units 15:08 13:55 WBC (4.5-11.0) 10^3/ul RBC (3.5-6.1) 10^6/uL Hgb (14.0-18.0) gm/dL Hct (42.0-52.0) % MCV (80.0-105.0) fL MCH (25.0-35.0) pg MCHC (31.0-37.0) g/dl RDW (11.5-14.5) % Plt Count (120.0-450.0) 10^3/uL MPV (7.0-11.0) fl Gran % (50.0-68.0) % Lymph % (Auto) (22.0-35.0) % [place] % (Auto) (1.0-6.0) % Eos % (Auto) (1.5-5.0) % Baso % (Auto) (0.0-3.0) % Gran # (1.4-6.5) Lymph # (1.2-3.4) [place] # (0.1-0.6) Eos # (0.0-0.7) Baso # (0.0-2.0) K/mm3 Sodium 128 L (132-148) mmol/L Potassium 4.5 (3.6-5.0) mmol/L Chloride 96 L (98-107) mmol/L Carbon Dioxide 9 L D (21-33) mmol/L Anion Gap 28 H (10-20) BUN 44 H (7-21) mg/dL Creatinine 1.6 H (0.5-1.4) mg/dL Est GFR ( Amer) 58 Est GFR (Non-Af Amer) 48 POC Glucose (mg/dL) > 500 H* (65-110) mg/dL Random Glucose 611 H* D (70-110) mg/dL Hemoglobin A1c (4.2-6.5) % Lactic Acid (0.7-2.1) mmol/L Uric Acid (3.5-8.5) mg/dL Calcium 8.4 (8.4-10.5) mg/dL Magnesium (1.7-2.2) mg/dL Total Bilirubin (0.2-1.3) mg/dL Direct Bilirubin (0.0-0.4) mg/dL AST (15-59) U/L ALT (7-56) U/L Alkaline Phosphatase (38-133) U/L Troponin I 0.15 H* ng/mL Total Protein (5.8-8.3) g/dL Albumin (3.0-4.8) g/dL Globulin gm/dL Albumin/Globulin Ratio (1.1-1.8) Triglycerides 101 (35-160) mg/dL Cholesterol 159 (130-200) mg/dL LDL Cholesterol Direct 78 (0-129) mg/dL HDL Cholesterol 57 (29-60) mg/dL Free T4 (0.78-2.19) ng/dL Thyroxine (T4) (5.5-11.0) ug/dL TSH 3rd Generation (0.46-4.68) mIU/mL Hepatitis A IgM Ab (NEGATIVE) Hep Bs Antigen (NEGATIVE) Hep B Core IgM Ab (NEGATIVE) Laboratory Results - last 24 hr 02/24/17 02/24/17 02/24/17 13:55 15:08 15:08 WBC RBC Hgb Hct MCV MCH MCHC RDW Plt Count MPV Gran % Lymph % (Auto) [place] % (Auto) Eos % (Auto) Baso % (Auto) Gran # Lymph # [place] # Eos # Baso # Sodium 128 L Potassium 4.5 Chloride 96 L Carbon Dioxide 9 L D Anion Gap 28 H BUN 44 H Creatinine 1.6 H Est GFR ( Amer) 58 Est GFR (Non-Af Amer) 48 POC Glucose (mg/dL) > 500 H* Random Glucose 611 H* D Hemoglobin A1c Lactic Acid Uric Acid Calcium 8.4 Magnesium Total Bilirubin Direct Bilirubin AST ALT Alkaline Phosphatase Troponin I 0.15 H* Total Protein Albumin Globulin Albumin/Globulin Ratio Triglycerides 101 Cholesterol 159 LDL Cholesterol Direct 78 HDL Cholesterol 57 Free T4 0.94 Thyroxine (T4) 5.1 L TSH 3rd Generation 0.50 Hepatitis A IgM Ab Hep Bs Antigen Hep B Core IgM Ab 02/24/17 02/24/17 02/24/17 15:08 15:08 15:11 WBC RBC Hgb Hct MCV MCH MCHC RDW Plt Count MPV Gran % Lymph % (Auto) [place] % (Auto) Eos % (Auto) Baso % (Auto) Gran # Lymph # [place] # Eos # Baso # Sodium Potassium Chloride Carbon Dioxide Anion Gap BUN Creatinine Est GFR ( Amer) Est GFR (Non-Af Amer) POC Glucose (mg/dL) 472 H* Random Glucose Hemoglobin A1c Lactic Acid 2.2 H Uric Acid 9.0 H Calcium Magnesium Total Bilirubin Direct Bilirubin AST ALT Alkaline Phosphatase Troponin I Total Protein Albumin Globulin Albumin/Globulin Ratio Triglycerides Cholesterol LDL Cholesterol Direct HDL Cholesterol Free T4 Thyroxine (T4) TSH 3rd Generation Hepatitis A IgM Ab Hep Bs Antigen Hep B Core IgM Ab 02/24/17 02/24/17 02/24/17 16:07 17:11 18:11 WBC RBC Hgb Hct MCV MCH MCHC RDW Plt Count MPV Gran % Lymph % (Auto) [place] % (Auto) Eos % (Auto) Baso % (Auto) Gran # Lymph # [place] # Eos # Baso # Sodium Potassium Chloride Carbon Dioxide Anion Gap BUN Creatinine Est GFR ( Amer) Est GFR (Non-Af Amer) POC Glucose (mg/dL) 464 H* 390 H 371 H Random Glucose Hemoglobin A1c Lactic Acid Uric Acid Calcium Magnesium Total Bilirubin Direct Bilirubin AST ALT Alkaline Phosphatase Troponin I Total Protein Albumin Globulin Albumin/Globulin Ratio Triglycerides Cholesterol LDL Cholesterol Direct HDL Cholesterol Free T4 Thyroxine (T4) TSH 3rd Generation Hepatitis A IgM Ab Hep Bs Antigen Hep B Core IgM Ab 02/24/17 02/24/17 02/24/17 19:08 20:09 20:50 WBC RBC Hgb Hct MCV MCH MCHC RDW Plt Count MPV Gran % Lymph % (Auto) [place] % (Auto) Eos % (Auto) Baso % (Auto) Gran # Lymph # [place] # Eos # Baso # Sodium 132 Potassium 4.3 Chloride 102 Carbon Dioxide 18 L Anion Gap 16 BUN 35 H Creatinine 1.1 Est GFR ( Amer) > 60 Est GFR (Non-Af Amer) > 60 POC Glucose (mg/dL) 359 H 305 H Random Glucose 279 H Hemoglobin A1c Lactic Acid Uric Acid Calcium 8.4 Magnesium Total Bilirubin Direct Bilirubin AST ALT Alkaline Phosphatase Troponin I 0.50 H* D Total Protein Albumin Globulin Albumin/Globulin Ratio Triglycerides Cholesterol LDL Cholesterol Direct HDL Cholesterol Free T4 Thyroxine (T4) TSH 3rd Generation Hepatitis A IgM Ab Hep Bs Antigen Hep B Core IgM Ab 02/24/17 02/24/17 02/24/17 21:02 21:39 23:05 WBC RBC Hgb Hct MCV MCH MCHC RDW Plt Count MPV Gran % Lymph % (Auto) [place] % (Auto) Eos % (Auto) Baso % (Auto) Gran # Lymph # [place] # Eos # Baso # Sodium Potassium Chloride Carbon Dioxide Anion Gap BUN Creatinine Est GFR ( Amer) Est GFR (Non-Af Amer) POC Glucose (mg/dL) 307 H 297 H 247 H Random Glucose Hemoglobin A1c Lactic Acid Uric Acid Calcium Magnesium Total Bilirubin Direct Bilirubin AST ALT Alkaline Phosphatase Troponin I Total Protein Albumin Globulin Albumin/Globulin Ratio Triglycerides Cholesterol LDL Cholesterol Direct HDL Cholesterol Free T4 Thyroxine (T4) TSH 3rd Generation Hepatitis A IgM Ab Hep Bs Antigen Hep B Core IgM Ab 02/24/17 02/25/17 02/25/17 23:57 00:10 00:57 WBC RBC Hgb Hct MCV MCH MCHC RDW Plt Count MPV Gran % Lymph % (Auto) [place] % (Auto) Eos % (Auto) Baso % (Auto) Gran # Lymph # [place] # Eos # Baso # Sodium 134 Potassium 3.5 L Chloride 105 Carbon Dioxide 21 Anion Gap 12 BUN 29 H Creatinine 1.0 Est GFR ( Amer) > 60 Est GFR (Non-Af Amer) > 60 POC Glucose (mg/dL) 203 H 157 H Random Glucose 144 H Hemoglobin A1c Lactic Acid Uric Acid Calcium 8.6 Magnesium Total Bilirubin Direct Bilirubin AST ALT Alkaline Phosphatase Troponin I Total Protein Albumin Globulin Albumin/Globulin Ratio Triglycerides Cholesterol LDL Cholesterol Direct HDL Cholesterol Free T4 Thyroxine (T4) TSH 3rd Generation Hepatitis A IgM Ab Hep Bs Antigen Hep B Core IgM Ab 02/25/17 02/25/17 02/25/17 01:50 02:54 03:56 WBC RBC Hgb Hct MCV MCH MCHC RDW Plt Count MPV Gran % Lymph % (Auto) [place] % (Auto) Eos % (Auto) Baso % (Auto) Gran # Lymph # [place] # Eos # Baso # Sodium Potassium Chloride Carbon Dioxide Anion Gap BUN Creatinine Est GFR ( Amer) Est GFR (Non-Af Amer) POC Glucose (mg/dL) 125 H 109 92 Random Glucose Hemoglobin A1c Lactic Acid Uric Acid Calcium Magnesium Total Bilirubin Direct Bilirubin AST ALT Alkaline Phosphatase Troponin I Total Protein Albumin Globulin Albumin/Globulin Ratio Triglycerides Cholesterol LDL Cholesterol Direct HDL Cholesterol Free T4 Thyroxine (T4) TSH 3rd Generation Hepatitis A IgM Ab Hep Bs Antigen Hep B Core IgM Ab 02/25/17 02/25/17 02/25/17 04:55 05:10 05:10 WBC RBC Hgb Hct MCV MCH MCHC RDW Plt Count MPV Gran % Lymph % (Auto) [place] % (Auto) Eos % (Auto) Baso % (Auto) Gran # Lymph # [place] # Eos # Baso # Sodium 137 Potassium 3.8 Chloride 109 H Carbon Dioxide 22 Anion Gap 10 BUN 24 H Creatinine 0.8 Est GFR ( Amer) > 60 Est GFR (Non-Af Amer) > 60 POC Glucose (mg/dL) 104 Random Glucose 100 Hemoglobin A1c 7.4 H Lactic Acid Uric Acid Calcium 8.4 Magnesium 2.3 H Total Bilirubin 1.2 Direct Bilirubin 0.3 AST 45 ALT 40 Alkaline Phosphatase 53 Troponin I 0.44 H* Total Protein 5.3 L Albumin 3.3 Globulin 2.1 Albumin/Globulin Ratio 1.6 Triglycerides Cholesterol LDL Cholesterol Direct HDL Cholesterol Free T4 Thyroxine (T4) TSH 3rd Generation Hepatitis A IgM Ab Hep Bs Antigen Hep B Core IgM Ab 02/25/17 02/25/17 02/25/17 05:10 05:10 05:55 WBC 20.2 H RBC 3.63 Hgb 11.1 L Hct 31.2 L MCV 86.0 MCH 30.6 MCHC 35.6 RDW 13.0 Plt Count 214 MPV 9.2 Gran % 85.3 H Lymph % (Auto) 7.0 L [place] % (Auto) 7.7 H Eos % (Auto) 0.0 L Baso % (Auto) 0.0 Gran # 17.22 H Lymph # 1.4 [place] # 1.6 H Eos # 0.0 Baso # 0.01 Sodium Potassium Chloride Carbon Dioxide Anion Gap BUN Creatinine Est GFR ( Amer) Est GFR (Non-Af Amer) POC Glucose (mg/dL) 115 H Random Glucose Hemoglobin A1c Lactic Acid Uric Acid Calcium Magnesium Total Bilirubin Direct Bilirubin AST ALT Alkaline Phosphatase Troponin I Total Protein Albumin Globulin Albumin/Globulin Ratio Triglycerides Cholesterol LDL Cholesterol Direct HDL Cholesterol Free T4 Thyroxine (T4) TSH 3rd Generation Hepatitis A IgM Ab Negative Hep Bs Antigen Negative Hep B Core IgM Ab Negative 02/25/17 02/25/17 02/25/17 06:54 07:00 08:00 WBC RBC Hgb Hct MCV MCH MCHC RDW Plt Count MPV Gran % Lymph % (Auto) [place] % (Auto) Eos % (Auto) Baso % (Auto) Gran # Lymph # [place] # Eos # Baso # Sodium 132 Potassium 3.9 Chloride 102 Carbon Dioxide 20 L Anion Gap 14 BUN 20 Creatinine 0.8 Est GFR ( Amer) > 60 Est GFR (Non-Af Amer) > 60 POC Glucose (mg/dL) 202 H 297 H Random Glucose 276 H Hemoglobin A1c Lactic Acid Uric Acid Calcium 8.6 Magnesium Total Bilirubin Direct Bilirubin AST ALT Alkaline Phosphatase Troponin I Total Protein Albumin Globulin Albumin/Globulin Ratio Triglycerides Cholesterol LDL Cholesterol Direct HDL Cholesterol Free T4 Thyroxine (T4) TSH 3rd Generation Hepatitis A IgM Ab Hep Bs Antigen Hep B Core IgM Ab 02/25/17 02/25/17 09:00 11:29 WBC RBC Hgb Hct MCV MCH MCHC RDW Plt Count MPV Gran % Lymph % (Auto) [place] % (Auto) Eos % (Auto) Baso % (Auto) Gran # Lymph # [place] # Eos # Baso # Sodium Potassium Chloride Carbon Dioxide Anion Gap BUN Creatinine Est GFR ( Amer) Est GFR (Non-Af Amer) POC Glucose (mg/dL) 322 H 393 H Random Glucose Hemoglobin A1c Lactic Acid Uric Acid Calcium Magnesium Total Bilirubin Direct Bilirubin AST ALT Alkaline Phosphatase Troponin I Total Protein Albumin Globulin Albumin/Globulin Ratio Triglycerides Cholesterol LDL Cholesterol Direct HDL Cholesterol Free T4 Thyroxine (T4) TSH 3rd Generation Hepatitis A IgM Ab Hep Bs Antigen Hep B Core IgM Ab EKG/Cardiology Studies: Cardiology / EKG Studies 02/25/17 10:52 ELECTROCARDIOGRAM Stat Comment: Reason For Exam: ??ANSTEMI 02/26/17 07:00 ELECTROCARDIOGRAM DAILY Comment: Reason For Exam: ??ANSTEMI 02/27/17 07:00 ELECTROCARDIOGRAM DAILY Comment: Reason For Exam: ??ANSTEMI 02/28/17 07:00 ELECTROCARDIOGRAM DAILY Comment: Reason For Exam: ??ANSTEMI Critical Care Progress Note - Nutrition Nutrition: Nutrition Category Date Time Status Heart Healthy Diet [DIET] Diets 02/25/17 Dinner Ordered Liquid Diet [DIET] Diets 02/24/17 Dinner Ordered Attending/Attestation - Attestation I have personally seen and examined this patient.: Yes I have fully participated in the care of the patient.: Yes I have reviewed all pertinent clinical information: Yes Notes (Text): 02/25/17 15:11 41 y/o M w/ Symptomatic hyponatremia NA 108. Hx of alcohol abuse > 20 drinks daily . Clinically euvolemic state. No seizures noted. Lab work thus far presents with normal BUN , low CL and NA. Urine OSM LOW and Serum OSM pending to make determination of [place] combination w / hypovolemia Q4 BMW , NA correction 8-10meq in 24 hrs. On 3% NS for now 40ml/ hr Hypothyroid state. given P.O synthroid. IV synthroid can be given. dvt p PPI Will likely need monitoring for alcohol withdrawl. cc time 55 min
[2017-02-25 09:11] LABS: BLOOD UREA NITROGEN 20 mg/dL (7-21); CALCIUM 8.6 mg/dL (8.4-10.5); CARBON DIOXIDE 20 mmol/L (21-33); CHLORIDE 102 mmol/L (95-110); GFR AFRICAN-AMERICAN > 60; GLUCOSE,RANDOM 276 mg/dL (70-110); POTASSIUM 3.9 mmol/L (3.6-5.0); SODIUM 132 mmol/L (132-148)
[2017-02-25] MEDS ORDERED: Insulin Detemir 100 units/ml Vial (Levemir) SC ONE ×2 (10:05→10:34)
--- NOTE | 2017-02-25 10:30 | PN ---
DATE: 02/25/2017 The patient is in bed, no acute distress and he states he is feeling much better. No fevers. PHYSICAL EXAMINATION: VITAL SIGNS: Temperature is 97, blood pressure is 150/60, respiratory rate of 18. HEENT: Unremarkable. NECK: Supple. LUNGS: Have decreased breath sounds. HEART: Normal S1, S2. ABDOMEN: Soft, nontender. LABORATORY EXAMINATION: Reveals a white count of 20,000, hemoglobin of 11, platelets of 214, 85% gra nulocytosis. BUN of 24, creatinine of 0.8. Troponin 0.44. LFTs are normal. Urinalysis is now unre markable and toxicology screen is negative. Microbiology is pending. Dr. Mcclellan progress note is reviewed. ASSESSMENT AND PLAN: A 41-year-old male with history of diabetes mellitus and high cholesterol. Adm itted with a diagnosis of systemic inflammatory response syndrome and diabetic ketoacidosis, acute ki dney injury and persistent leukocytosis. Awaiting for a CAT scan of the abdomen and pelvis and curre ntly on Zosyn and the EKG from yesterday shows sinus tachycardia, normal EKG, most consistent with a non-ST elevation myocardial infarction with elevated troponin. Yon Aceves MD cc: [id number] TT: 02/25/2017 10:29:45 Confirmation # [id number] Dictation # [id number] en
--- NOTE | 2017-02-25 10:50 | CON ---
DATE: 02/25/2017 HISTORY OF PRESENT ILLNESS: The patient is a 41-year-old male who presents with abdominal pain, vomi ting, as well as diarrhea to the Emergency Room. He was found to have borderline elevated troponins. The patient is resistant to give any history. Despite discussing his issues and potential cardiac is sues, the patient is very resistant to hearing any issues related to his heart. The patient is a former smoker. He denies any substance abuse. No previous cardiac history is known. No hypertension. No previous cardiac history. There is no [facility] history of heart disease known. SOCIAL HISTORY: He is a former smoker. REVIEW OF SYSTEMS: Is not reliable given the patient's resistance to give a history. PHYSICAL EXAMINATION: VITAL SIGNS: Blood pressure is 115/66, the heart rate is in the 80s. NECK: Negative JVD. LUNGS: Without rales. HEART: Reveals S1, S2. EXTREMITIES: Without edema. LABORATORY DATA: White count is 20,000, hemoglobin is 11.1. Chemistries: The troponin is 0.44, glu cose is 276 with a bicarb of 20. IMPRESSION: 1. Abdominal pain. 2. Sepsis. 3. Non-ST elevation myocardial infarction. 4. Diabetes mellitus. 5. The patient is resistant to any questions related to his health and is reluctant to give a histor y. PLAN: Given these findings, we will start the patient on aspirin as well as subQ Lovenox. I have di scussed with the patient about his elevated troponins, which may represent a small myocardial infarct ion. His probability for CAD is high. He is currently undergoing a CT scan of the abdomen as well as looking for a source of his sepsis. Thomas Cardoso MD cc: [id number] TT: 02/25/2017 10:49:48 Confirmation # [id number] Dictation # [id number] umesh
--- NOTE | 2017-02-25 11:27 | CT ---
PROCEDURE: CT Abdomen and Pelvis without intravenous contrast HISTORY: sepsis COMPARISON: None. TECHNIQUE: Without contrast.. Contrast Dose: 0 Radiation dose: Total exam DLP = 346.25 mGy-cm. This CT exam was performed using one or more of the following dose reduction techniques: Automated exposure control, adjustment of the mA and/or kV according to patient size, and/or use of iterative reconstruction technique. FINDINGS: LOWER THORAX: Bilateral lower lobe linear scar/ atelectasis. LIVER: Normal size and contour. Diffuse mildly diminished attenuation consistent with fatty infiltration. No mass. No biliary dilatation. GALLBLADDER AND BILE DUCTS: Unremarkable. PANCREAS: Questionable small amount of fluid about the pancreatic tail. Questionable whether this is the result of a very enlarged left adrenal gland consistent with adrenal hypertrophy or whether this is byron peripancreatic fluid. Correlate with amylase and lipase and clinical exam. No pancreatic mass or ductal dilatation appreciated. SPLEEN: Unremarkable. ADRENALS: Adrenal hypertrophy, left greater than right. No adrenal mass. KIDNEYS AND URETERS: Unremarkable. No hydronephrosis. No solid mass. VASCULATURE: Unremarkable. No aortic aneurysm. BOWEL: There is mural thickening of the gastric cardia/ fundus common nonspecific. Possible gastritis. There is diverticulosis of the sigmoid colon. There is mural thickening of sigmoid colon most likely due to chronic muscular hypertrophy. There is no evidence of diverticulitis. There is mural thickening of the inferior rectum common nonspecific. There is no evidence of bowel obstruction. APPENDIX: Unremarkable. Normal appendix. PERITONEUM: Unremarkable. No free fluid. No free air. LYMPH NODES: Unremarkable. No enlarged lymph nodes. BLADDER: Unremarkable. REPRODUCTIVE: Normal prostate BONES: No acute fracture. OTHER FINDINGS: None. IMPRESSION: Bilateral adrenal hypertrophy. Questionable small amount of fluid adjacent pancreatic tail. Recommend correlation with serum amylase and lipase and clinical examination. Mural thickening of the gastric fundus/ cardia. Possible gastritis. Mural thickening of the inferior rectum common nonspecific. Sigmoid diverticulosis without evidence of diverticulitis. Fatty infiltration of the liver.
[2017-02-25] MEDS ORDERED: Piperacillin/Tazobact 3.375 gm 100 ML IVPB ONE (12:25)
[2017-02-25] MEDS: Insulin Reg-MEDIUM-Coverage SC SCH ×3 (12:26→22:52)
[2017-02-25] MEDS ORDERED: Insulin Regular 1 UNITS/0.01 ML ML ONE (12:26)
[2017-02-25 13:15] LABS: BLOOD UREA NITROGEN 18 mg/dL (7-21); CALCIUM 8.7 mg/dL (8.4-10.5); CARBON DIOXIDE 18 mmol/L (21-33); CHLORIDE 101 mmol/L (98-107); GFR AFRICAN-AMERICAN > 60; POTASSIUM 3.8 mmol/L (3.6-5.0); SODIUM 131 mmol/L (132-148)
[2017-02-25 13:23] LABS: GLUCOSE,RANDOM 368 mg/dL (70-110)
--- NOTE | 2017-02-25 13:39 | PN ---
DATE: 02/25/2017 In CCU 128, room 3. This is a 41-year-old male with recent uncontrolled type 1 insulin-dependent diabetes, presenting her e with intractable dyspepsia and vomiting and evaluated to have diabetic ketoacidosis and dehydration and has since then improved clinically and metabolically as noted thereof. His biochemical renal in dices have almost normalized at this time as noted. He is still on the insulin drip infusion as give n because of mild acidosis as noted, although the CO2 now is 20 compared to the initial number of les s than 5 on admission. With the resolving acidosis, he really is ready for a switch over to a more p hysiologic basal and bolus insulin drug combination as indicated. His latest chemistry showed a BUN of 20, sodium 132, potassium 3.9, chloride 102, CO2 20, glucose 276 and creatinine 0.8. His glucose values have ranged today from 297-322 and 393 mg/dL. So at this time, would actually continue the vigorous IV hydration as ordered and his current IVs now have D5 normal saline with potassium chloride at 10 mEq running at 150 mL per hour as noted. Would start him right away tonight on a basal insulin with Levemir given as 30 units subQ at bedtime daily to start tonight. We will also add Humalog or actually NovoLog, whichever is available in the hospit al formulary, and start him on 12 units subQ t.i.d. before meals as ordered and we will modify and ti trate his dose coverage scale accordingly. We will follow. Kortney Jaime MD cc: [id number] TT: 02/25/2017 13:39:27 Confirmation # [id number] Dictation # [id number] en
[2017-02-25 15:52] LABS: BLOOD UREA NITROGEN 17 mg/dL (7-21); CARBON DIOXIDE 25 mmol/L (21-33); CHLORIDE 102 mmol/L (98-107); GFR AFRICAN-AMERICAN > 60; POTASSIUM 4.3 mmol/L (3.6-5.0); SODIUM 133 mmol/L (132-148)
[2017-02-25 15:59] LABS: GLUCOSE,RANDOM 329 mg/dL (70-110)
[2017-02-25 16:38] LABS: AMYLASE 81 U/L (35-125); LIPASE 75 U/L (23-300)
--- NOTE | 2017-02-25 17:02 | CARD ---
APPROVED REPORT EXAM: Two-dimensional and M-mode echocardiogram with Doppler and color Doppler. INDICATION Non STEMI 2D DIMENSIONS Left Atrium (2D)3.3 (1.6-4.0cm)IVSd1.0 (0.7-1.1cm) LVDd4.6 (3.9-5.9cm)PWd1.0 (0.7-1.1cm) LVDs3.4 (2.5-4.0cm)FS (%) 25.3 % LVEF (%)50.1 (>50%) M-Mode DIMENSIONS Aortic Root2.80 (2.2-3.7cm)Aortic Cusp Exc.2.50 (1.5-2.0cm) Aortic Valve AoV Peak Tvifqzmv296.0cm/Sourav Peak GR.7mmHg Mitral Valve MV E Hrfomtrg31.7cm/sMV A Cotnhekj69.3cm/sE/A ratio1.5 TDI E/Lateral E'0.0E/Medial E'0.0 Tricuspid Valve TR Peak [id number]/sRAP [id number] Peak Gr.28mmHg [id number] LEFT VENTRICLE The left ventricle is normal size. There is normal left ventricular wall thickness. Left ventricle systolic function is borderline. Septal hypokinesis The left ventricular diastolic function is normal. No left ventricle thrombus noted on this study. RIGHT VENTRICLE The right ventricle is normal size. There is normal right ventricular wall thickness. The right ventricular systolic function is normal. ATRIA The left atrium size is normal. The right atrium size is normal. AORTIC VALVE The aortic valve is normal in structure. No aortic regurgitation is present. There is no aortic valvular stenosis. MITRAL VALVE The mitral valve is normal in structure. There is no mitral valve regurgitation noted. TRICUSPID VALVE There is mild pulmonary hypertension. GREAT VESSELS The aortic root is normal in size. The IVC collapses <50% with inspiration. PERICARDIAL EFFUSION There is no pericardial effusion. <Conclusion> The left ventricle is normal size. There is normal left ventricular wall thickness. Left ventricle systolic function is borderline. Septal hypokinesis There is mild pulmonary hypertension.
[2017-02-25] MEDS ORDERED: Sodium Chloride 0.9% 1,000 ML IV SCH (17:15)
[2017-02-25] MEDS ORDERED: Aspirin 325 mg EC Tablets PO SCH (17:15)
[2017-02-25] MEDS ORDERED: Enoxaparin 80 mg Syringe SC SCH (17:15)
--- NOTE | 2017-02-25 17:52 | CARD ---
APPROVED REPORT EKG Measurement Heart [id number] CT [id number] [id number] <Conclusion> Normal sinus rhythm Normal ECG
[2017-02-25 21:44] VITALS: TEMP 98.3
--- NOTE | 2017-02-25 21:54 | HP ---
HISTORY OF PRESENT ILLNESS: The patient is a 41-year-old male who came to came to the [facility] Room in the morning of 02/24/2017 by EMS [facility] complaining of abdominal pain with vo miting for the last 24 hours. The patient stated that his insulin pump has been malfunctioning and h is fingerstick blood sugar has been greater than 400 despite insulin pump delivering intermittent dos es of 10-15 units of insulin, but the patient's blood sugar kept going up. The patient's 13-system r eview was positive for abdominal pain, vomiting and diarrhea. The patient was found to be and sabrina ative, answering questions in the ER and with me when I tried to examine. According to the patient. The patient has been diabetic for many years and has been on insulin pump and has an federal district law clerk on [facility] in [facility], where the patient is being treated. The patient does admit hi story of type 1 diabetes mellitus diagnosed more than 20 years ago, history of dyslipidemia, history of inguinal hernia repair, history of diabetic retinopathy, history of social alcohol use. PAST MEDICAL HISTORY: The patient's past medical history is significant for hypovitaminosis D, histo ry of dyslipidemia, history of smoking, history of social alcohol use. FAMILY HISTORY: Positive for diabetes. OCCUPATIONAL HISTORY: None known. CODE STATUS: Full code. LIVING WILL AND ADVANCED DIRECTIVE: None. ALLERGIES: None. HEIGHT: 5 feet 10 inches. BMI: 24.4. PHYSICAL EXAMINATION: VITAL SIGNS: T-max 97.7. Pulse rate is initially 120, 101, 96, 97, 91, 95. Blood pressure is 143/8 6, 135/71, 141/78. Respiration 18, 20, 27, 31, 30, 32. O2 sat is 96%, 97%, 100%. GENERAL: The patient is seen in ICU bed 3. HEAD: Normocephalic, atraumatic. HEENT: Shows pinkish, pale conjunctivae, dry oral mucosa. NECK: No neck rigidity. CHEST: Kyphosis, positive multiples tattoos noted in upper extremity in the body. NECK: No neck rigidity. CHEST: Kyphosis. LUNGS: Shows no rales, crackles, or wheezing. CARDIOVASCULAR: Shows S1, S2, tachycardic rhythm. ABDOMEN: Soft, mild epigastric periumbilical tenderness, no rebound tenderness noted. No right and left upper and lower quadrant tenderness noted. No costovertebral angle tenderness. GENITALIA: Male. RECTAL: Deferred. EXTREMITIES: Shows no pitting edema, no calf tenderness, no Homans' sign. No clubbing, no cyanosis. SKIN: Shows multiple skin tattoos. VASCULAR: Palpable pulses. MUSCULOSKELETAL: Shows a body mass index of 24. DIAGNOSTICS: WBC 19.1, hemoglobin and hematocrit 13.5 and , platelets 312, granulocytes 89.7. VBG: pCO2 of 193, pH of 7.06, pCO2 of 18, bicarb 5.1. Sodium 129, potassium 6.0, chloride 90, CO2 l ess than 5, anion gap , BUN 46, creatinine 2.2, glucose greater than 937. LFTs shows albumin gl obulin ratio 2.2, lipase 200. Urine pH 6.0, specific gravity 1.020, urine glucose 1000, greater than 80 ketones, small blood, few bacteria. Urine drug screen was negative. Blood alcohol level negativ e. Hepatitis A, B, C serologies ordered. The patient had a chest x-ray done, the patient had a [facility] t x-ray done, which shows no active pulmonary disease. The patient had an abdominal x-ray done, whic h shows nonspecific bowel pattern. Lungs are clear. EKG done in the Emergency Room shows sinus tach ycardia, left ventricular hypertrophy by voltage criteria. The patient was seen in the Emergency Room by Dr. Arzate. The was started treatment for DKA in the Emergency Room. The patient was also seen by the weight trainer for admission to the intensive care [facility]. The patient was started on insulin drip. The patient was given IV fluid. The patient was given IV antibiotic. IMPRESSION AND PLAN: 1. Diabetic ketoacidosis with uncontrolled insulin requiring dependent diabetes mellitus. 2. Tachycardia. 3. Tachypnea 4. Leukocytosis with granulocytosis. 5. Normocytic anemia. 6. Increased anion gap metabolic acidosis. 7. Lactic acidosis. 8. Hyponatremia. 9. Non-hemolyzed hyperkalemia secondary to diabetic ketoacidosis. 10. Acute kidney injury. 11. Increased anion gap metabolic acidosis. 12. Diabetic ketoacidosis with uncontrolled diabetes mellitus with blood glucose of greater than 900 . 13. Hyponatremia. 14. Questionable non-ST elevation myocardial infarction with elevated troponin, because the troponin is 0.15. 15. History of hypovitaminosis D and hyperlipidemia. 16. Glycosuria, ketonuria, bacteriuria. 17. Sinus tachycardia with left ventricular hypertrophy. 18. Questionable and possible systemic inflammatory response syndrome. 19. Acute kidney injury and acute renal failure. 20. Diabetic ketoacidosis. 21. Abdominal pain with nausea, vomiting, questionable diabetic gastroparesis, symptomatic. 22. Uncontrolled type 1 decompensated insulin-dependent diabetes mellitus with diabetic ketoacidosis , dehydration, spurious hyponatremia and hyperkalemia with acute kidney injury. PLAN: At this time, the patient will be admitted to intensive care unit, serial labs ordered. Seria l troponin and EKG ordered. HIV, hepatitis ordered. Blood and urine cultures ordered. Consultation : Cardiology, endocrinology, infectious disease ordered. The patient is started on insulin pump and insulin drip. The patient has been ordered GI prophylaxis with Protonix 40 IV daily, Reglan 10 IV q . 6 hours. The patient was given Rocephin 1 gram IV stat. The patient has received liters of IV fluid normal saline, Zofran 4 mg IV q. 4 p.r.n. The patient is started on Zosyn 3.375 grams IV q. 6. Repeat EKG, repeat cardiac enzymes ordered. The patient is awaiting further evaluation by endoc rinology, infectious disease, cardiology and infectious disease. At present, the patient initially w as very uncooperative and did not want to talk, but later on, the patient improved and became more co operative. The patient's condition is critical. Prognosis is guarded. The patient will be admitted to intensiv e care unit. Time spent in the entire management, review of data, diagnostic and therapeutic data and details were reviewed. Time spent was more than 1 hour 55 minutes. Dictated, electronically signed, not read. Pepito Magdaleno MD cc: [id number] TT: 02/25/2017 21:53:49 soledad
[2017-02-25] MEDS ORDERED: Dextrose 50% SYRINGE Inj (50 ml) ONE ×2 (22:10→22:12)
[2017-02-25] MEDS ORDERED: Dextrose 50% SYRINGE Inj (50 ml) IVP ONE (22:21)
[2017-02-25 22:59] VITALS: O2SAT 99
[2017-02-25 23:14] VITALS: BP 125/71
[2017-02-26] MEDS: Piperacillin/Tazobact 3.375 gm 100 ML IVPB SCH (00:05)
[2017-02-26 02:22] VITALS: PULSE 73; RESP 17
--- NOTE | 2017-02-26 02:55 | CP.PCM.PN ---
Subjective - Date & Time of Evaluation Date of Evaluation: 02/26/17 Time of Evaluation: 02:35 - Subjective Subjective: Patient having recurrent episodes of hypoglycemia overnight and receiving D50 IV and OJ as a result. Because of recurrent fingerstick checks, he has rudely threatened to leave AMA multiple times over the past 5-6 hours (i.e- cursing, yelling and using profanity). At around 11pm, I came into the room and in front of the nurse, had a long discussion with him regarding the potentially fatal risks of leaving AMA. He demanded to know the results of his recent CT-AP and 2D -echo which I patiently reviewed with him in detail. I also explained to him that he was being empirically treated for an NSTEMI and that it would be especially rogers for him to wait until the morning for the cardiologists further recommendations. At that time, he finally calmed down and became agreeable. Then about 3.5 hours later around 2:30am I received another call from the RN stating that he was threatening to leave AMA. I quickly left the patient that I was seeing in the ED and came back to his room. By that time he had ripped out his peripheral IV line and already signed the AMA papers. Regardless, I again attempted to explain the potentially fatal risks of leaving AMA, including sudden . Unfortunately, this time he continued to remain belligerent and would not listen. Ultimately, he stormed out of the room. Objective - Vital Signs/Intake and Output Vital Signs (last 24 hours): Temp Pulse Resp BP Pulse Ox 98.3 F 73 17 125/71 99 02/25/17 20:00 02/26/17 02:00 02/26/17 02:00 02/25/17 23:00 02/25/17 21:09 Intake and Output: 02/25/17 02/26/17 18:59 06:59 Intake Total 1960 900 Output Total 1500 1575 Balance 460 -675 - Medications Medications: Current Medications Aspirin (Ecotrin) 325 mg PO DAILY [facility] Last Admin: 02/25/17 18:18 Dose: 325 mg Enoxaparin Sodium (Lovenox) 70 mg SC Q12H [facility] PRN Reason: Protocol Last Admin: 02/25/17 18:18 Dose: 70 mg Insulin Human Regular 100 (units/ Sodium Chloride) 100 mls @ 7 mls/hr IV .[id number] PRN; Protocol; 7 UNITS/HR PRN Reason: TITRATE PER MD ORDER Last Titration: 02/25/17 04:00 Dose: 0 units/hr, 0 mls/hr Piperacillin Sod/Tazobactam Sod (Zosyn 3.375 In Ns 100ml) 100 mls @ 200 mls/hr IVPB Q6 [facility] PRN Reason: Protocol Stop: 03/05/17 20:54 Last Admin: 02/26/17 00:05 Dose: 200 mls/hr Sodium Chloride (Sodium Chloride 0.9%) 1,000 mls @ 100 mls/hr IV .Q10H [facility] Stop: 03/01/17 21:14 Last Admin: 02/25/17 18:17 Dose: 100 mls/hr Insulin Human Regular (Humulin R Med) 0 units SC ACHS [facility]ARA PRN Reason: Protocol Last Admin: 02/25/17 22:52 Dose: Not Given Metoclopramide HCl (Reglan) 10 mg IVP Q6H [facility] Last Admin: 02/26/17 00:04 Dose: 10 mg Metoprolol Tartrate (Lopressor) 25 mg PO BRKDIN NARA Ondansetron HCl (Zofran Inj) 4 mg IVP Q4H PRN PRN Reason: Nausea/Vomiting Pantoprazole Sodium (Protonix Inj) 40 mg IVP DAILY [facility] Last Admin: 02/25/17 10:35 Dose: 40 mg - Labs Labs: 02/25/17 05:10 02/25/17 15:38
--- NOTE | 2017-02-28 08:34 | PN ---
DATE: 02/25/2017 The patient is seen in the ICU bed 3. The patient is lying in the bed. The patient is about to star t the echocardiogram. The patient is alert, awake, responsive, much calmer today as compared to callit donna. The patient's blood sugar has been . The patient's wants to use his own insulin pump. PHYSICAL EXAMINATION: VITAL SIGNS: T-max today in the last 24 hours 98.4, heart rate down to 84, 90, 88; respirations 20, 21, 15; blood pressure 139/83, 123/59, 115/66, 120/65, 110/53; respirations 20, O2 sat 98% to 100%. HEAD: Normocephalic, atraumatic. HEENT: Shows pink conjunctivae, anicteric sclerae. No oropharyngeal lesion. NECK: No neck rigidity. CHEST: Symmetrical. LUNGS: Shows no rales, crackles, or wheezing. CARDIOVASCULAR: Shows S1, S2, regular rhythm positive. SKIN: Multiple skin tattoos noted. ABDOMEN: Soft, positive bowel sounds, nontender. GENITALIA: Male. RECTAL: Deferred. EXTREMITIES: Shows no edema, no calf tenderness, no Homans' sign. NEUROLOGIC: The patient is alert, awake, oriented x 3. Cranial nerves II-XII intact. GAIT: Not tested. MOTOR: Motor strength is 5/5. VASCULAR: Palpable pulses. DIAGNOSTICS: On 02/25: WBC 20.2, hemoglobin and hematocrit 11.1 and 31.3, platelets 214, granulocyt es 85% segs. Sodium is up to 133, potassium 4.3, chloride 102, CO2 of 25, anion gap 10, BUN 17, crea tinine 0.8, which is corrected from creatinine of 2.2 down to 0.8, BUN came down to 17 from 46, GFR g reater than 60, glucose is down to 329, 368. Hemoglobin A1c is 7.4. Lactic acid is 2.2. Uric acid is 9.0. Calcium 9.0, magnesium 2.3. Troponin trend is 0.15, 0.50 and 0.44. Vitamin D25 hydroxy 56. 5. Procalcitonin level less 5.26. Cholesterol is 159, triglyceride is 101, LDL is 78, HDL is 57. T SH is 0.50, T4 of 5.1, free T4 of 0.94. Procalcitonin 5.26. Lipase was 200. Hepatitis A, B, C sero logies are negative. The patient's CT of the abdomen and pelvis, which was ordered by Dr. Aceves last night with p.o. contrast is available, which shows bibasilar atelectasis, fatty infiltration of the liver. Peripancreatic tail fluid with questionable enlarged left adrenal gland with left adrena l hypertrophy. Gastric mural thickening noted. Gastritis with diverticulosis of the sigmoid colon n oted. Echo with Doppler was done today, which shows ejection fraction of 50%, right ventricular syst olic pressure of 38. Septal hypokinesis, left ventricular systolic function, borderline. IMPRESSION AND PLAN: 1. Diabetic ketoacidosis with uncontrolled type 1 insulin requiring diabetes mellitus. 2. Possible symptomatic diabetic gastroparesis with abdominal pain, nausea, vomiting. 3. Severe dehydration. 4. Acute kidney injury. 5. Increased anion gap metabolic acidosis. 6. Acute non-ST elevation myocardial infarction with elevated troponin. 7. Possible noncompliance. 8. Non-ST elevation myocardial infarction. 9. Systemic inflammatory response syndrome. 10. Diabetic ketoacidosis. 11. Acute renal failure and acute kidney injury. 12. Sinus tachycardia. 13. Tachycardia. 14. Tachypnea. 15. Leukocytosis with granulocytosis. 16. Normocytic anemia. 17. Increased anion gap metabolic acidosis. 18. Hyponatremia. 19. Nonhemolyzed hyperkalemia. 20. Uncontrolled type 1 diabetes mellitus with hyperglycemia. 21. Uncontrolled type 1 insulin-requiring diabetes mellitus with hemoglobin A1c of 7.4. 22. Lactic acidosis. 23. Hyperuricemia. 24. Non-ST elevation myocardial infarction with elevated troponin. 25. Non-hemolyzed hyperkalemia. 26. Acute renal failure and acute kidney injury. 27. Hyperuricemia. 28. Hyperglycemia. 29. Hyponatremia 30. Hyperprocalcitonemia. 31. History of hypercholesterolemia. 32. Sinus tachycardia. 33. Bibasilar atelectasis. 34. Hepatic steatosis. 35. Questionable peripancreatic tail fluid. 36. Left adrenal hypertrophy. 37. Gastritis. 38. Sigmoid colon diverticulosis. 39. Hepatic steatosis. 40. Borderline left ventricular ejection fraction of 50%. 41. Septal hypokinesis. 42. Mild pulmonary arterial hypertension with right ventricular systolic pressure of 38 mmHg. 43. High probability of coronary artery disease. 44. Systemic inflammatory response syndrome. PLAN: At this time, the patient has been ordered serial labs. HIV is pending. Repeat labs ordered. Blood and urine cultures done. CURRENT CONSULTATIONS: Cardiology, endocrinology, infectious disease. CURRENT MEDICATIONS: The patient has been started on sliding scale coverage. The patient's insulin drip has been held. The patient was given Levemir 60 units subQ x 1 dose by the resident. The patie nt is on Protonix 40 IV daily, Reglan 10 mg IV q.6 hours, Zofran 4 mg IV q.4 hours, Zosyn 3.375 grams IV q.6 hours. The patient will be continued on IV fluids 0.9 normal saline at 100 mL an hour. The patient will be continued on IV fluid at 100 mL an hour 0.9 normal saline. The patient has been ordered out of bed to chair. Repeat EKG ordered. The patient will be ordered o ut of bed to chair. The patient will be ordered DVT, GI prophylaxis. At present, the patient was se en by endocrinology and cardiology. Endocrinology recommends to give Levemir 30 units subQ at bedtim e and Humalog or NovoLog 12 units each meal. The patient was seen by cardiology. Recommends subQ a spirin and subQ Lovenox. The patient will be started on beta blockers, aspirin, and Lovenox. The pa tient will be closely monitored and the patient will be considered for transfer out of ICU when medic ally stable. The patient has been updated about his condition, diagnosis, treatment plan, management plan at [facility] and all questions and concerns answered. Dictated and electronically signed, not read. Pepito Magdaleno MD cc: [id number] TT: 02/25/2017 19:02:49 Confirmation # [id number] Dictation # [id number] channing
--- NOTE | 2017-02-28 18:18 | DS ---
The patient signed out against medical advice on 02/26/2017. The patient was seen by , the coder. The patient has been threatening to leave AMA during this entire hospitalization. The patient has been cursing, yelling and using profanity. The patient was explained about his med ical condition by me on basis yesterday and also patient's condition, diagnosis, risk, conseque nces and test results were explained to the patient by also. The patient was explained abo dc the potential fatal risk of leaving AMA. The patient was given and explained about his diagnosis about DKA and non-ST elevation myocardial infarction. The patient was found to be belligerent, then the patient left the ICU and stormed out of the ICU. FINAL IMPRESSION, PLAN AND FINAL DIAGNOSES: 1. Diabetic ketoacidosis with uncontrolled type 1 insulin-requiring diabetes mellitus. 2. Symptomatic diabetic gastroparesis with abdominal pain, nausea, vomiting. 3. Acute non-ST elevation myocardial infarction. 4. Bilateral lower lobe atelectasis. 5. Hepatic steatosis. 6. Pancreatic tail fluid. 7. Left adrenal gland hypertrophy. 8. Gastric mural thickening, possible gastritis. 9. Sigmoid diverticulosis. 10. Nonspecific inferior rectum mural thickening. 11. Possible gastritis. 12. Hepatic steatosis and fatty infiltration of the liver. 13. Noncompliant patient. 14. Left ventricular ejection fraction of 50% with borderline left ventricular systolic function. 15. Septal hypokinesis. 16. Mild pulmonary hypertension with right ventricular systolic pressure of 38 mmHg. 17. Uncontrolled type 1 insulin-dependent diabetes mellitus, diabetic gastroparesis and diabetic ket oacidosis and dehydration. 18. Systemic inflammatory response. 19. Poor compliance. PLAN: At this time, patient signed out against medical advice despite multiple recommendations and e xplanation of the risks and consequences. Dictated and electronically signed, not read. Pepito Magdaleno MD cc: [id number] TT: 02/28/2017 18:17:34 in
== END 2017-02-26 02:53 | disposition left against medical advice (07) | DRG 280 ==
LOC: ED 10:50 → ERH 12:16 → CCU 13:58
PROVIDERS: ADMIT Internal Medicine; ATTEND Internal Medicine
DX: I21.4 Non-ST elevation (NSTEMI) myocardial infarction (principal); E10.10 Type 1 diabetes mellitus with ketoacidosis without coma; N17.9 Acute kidney failure, unspecified; E10.649 Type 1 diabetes mellitus with hypoglycemia without coma; R65.10 Systemic inflammatory response syndrome (SIRS) of non-infectious origin without acute organ dysfunction; E87.1 Hypo-osmolality and hyponatremia; E86.0 Dehydration; E27.8 Other specified disorders of adrenal gland; J98.11 Atelectasis; T85.694A Other mechanical complication of insulin pump, initial encounter; K31.84 Gastroparesis; I27.2 Other secondary pulmonary hypertension; E10.43 Type 1 diabetes mellitus with diabetic autonomic (poly)neuropathy; E87.5 Hyperkalemia; E78.00 Pure hypercholesterolemia, unspecified; E78.5 Hyperlipidemia, unspecified; I10 Essential (primary) hypertension; K29.70 Gastritis, unspecified, without bleeding; K57.30 Diverticulosis of large intestine without perforation or abscess without bleeding; K76.0 Fatty (change of) liver, not elsewhere classified; Y74.2 Prosthetic and other implants, materials and accessory general hospital and personal-use devices associated with adverse incidents; Z79.4 Long term (current) use of insulin; E10.319 Type 1 diabetes mellitus with unspecified diabetic retinopathy without macular edema; D64.9 Anemia, unspecified; E03.9 Hypothyroidism, unspecified; Z79.899 Other long term (current) drug therapy; Z82.49 Family history of ischemic heart disease and other diseases of the circulatory system; Z83.3 Family history of diabetes mellitus; Z87.891 Personal history of nicotine dependence; Z91.19 Patient's noncompliance with other medical treatment and regimen; R40.2412 Glasgow coma scale score 13-15, at arrival to emergency department; R00.0 Tachycardia, unspecified; R06.82 Tachypnea, not elsewhere classified; R81 Glycosuria; R82.71 Bacteriuria; I25.10 Atherosclerotic heart disease of native coronary artery without angina pectoris

== ENCOUNTER 2018-01-20 09:35 | Observation (INO) | payer BC ==
[2018-01-20] MEDS ORDERED: Sodium Chloride 0.9% 1,000 ML IV STA (10:22)
--- NOTE | 2018-01-20 10:27 | ED PDOC ---
Arrival/HPI - General Chief Complaint: High Blood Sugar Time Seen by Provider: 01/20/18 10:21 Historian: Patient - History of Present Illness Narrative History of Present Illness (Text): 01/20/18 10:20 42 year old male, whose PMH includes diabetes, who presents to the emergency department complaining of elevated sugar level since one day ago. Patient reports he was not feeling well yesterday and his sugar level was over 500. He decided to not eat anything and go to sleep and today when waking his sugar level was still the same (>350s). Patient complains of general unease, fatigue, malaise/weakness, associated with mild nausea, abdominal epigastric pain, polyuria, and polydipsia. Patient denies chest pain, shortness of breath, fever/ chills, palpitations, vomiting, dysuria, bowel changes, or other complaints. 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, blue and purple - Endocrine/Metabolic Hx Diabetes Mellitus Type 1: Yes (dx age 22) - Integumentary Other/Comment: multiple tatoos - Musculoskeletal/Rheumatological Hx Falls: No - Psychiatric Hx Substance Use: No - Surgical History Other/Comment: Hernia repair as child Family/Social History - Physician Review Nursing Documentation Reviewed: Yes Family/Social History: Unknown Family HX Smoking Status: Light Smoker < 10 Cigarettes Daily Hx Alcohol Use: Yes (occasional) Hx Substance Use: No Hx Substance Use Treatment: No Allergies/Home Meds Allergies/Adverse Reactions: Allergies No Known Allergies Allergy (Verified 01/20/18 10:10) Home Medications: Home Meds Medication Instructions Recorded Confirmed Insulin Glulisine [Apidra] 100 unit IJ CONT 02/24/17 01/20/18 Review of Systems - Physician Review All systems were reviewed & negative as marked: Yes - Review of Systems Constitutional: Fatigue. absent: Fevers Eyes: Normal ENT: Normal Respiratory: absent: SOB Cardiovascular: absent: Chest Pain Gastrointestinal: Abdominal Pain, Nausea, Appetite Changes. absent: Vomiting Genitourinary Male: Normal Musculoskeletal: Normal Skin: Normal Neurological: Dizziness Endocrine: Polyuria, Polydipsia Hemo/Lymphatic: Normal Psychiatric: Normal Physical Exam - Physical Exam Narrative Physical Exam (Text): 01/20/18 General: alert/awake, GCS = 15, oriented x 3, resting in bed, uncomfortable, cooperative, interactive Head: NC/AT EYE: PERRLA, EOMI, sclera anicteric, no nystagmus, no photophobia Facial: WNL Oral: uvula/tongue are midline, no exudate/lesions, no drooling/stridor, no dysphonia; mild dry oral mucosa; intact dentitions NECK: intact ROM, no midline tenderness, no nuchal rigidity, no meningeal signs ; no step off, no gross deformities Chest: CTA b/l, no w/r/r; no tachypenia, no accessory muscle use noted Cardiac: +S1, +S2, no m/r/r Abdominal: +BS, soft/nd; + mild epigastric tenderness, no gonzalez's sign, no mcburney's point tenderness, well nourished patient; no masses/rebound/guarding/ rigidity ext: intact ROM, strength 5/5 grossly intact in all limbs, neurovasc intact b/l ; + ambulatory SKIN: cap refill ~ 1 sec, no ulcerations, no petechiae, no rashes NEURO: CNII-XII WNL, no facial asymmetries, no slurr speech, oriented x 3 NIH stroke scale ~ 0 Psych: normal insight, normal affect Vital Signs Reviewed: Yes Vital Signs Temp Pulse Resp BP Pulse Ox 01/20/18 13:15 98 H 18 139/76 97 01/20/18 10:06 99 F 111 H 18 130/74 99 Temperature: Afebrile Blood Pressure: Normal Pulse: Tachycardic Respiratory Rate: Normal Appearance: Positive for: Well-Appearing, Non-Toxic, Uncomfortable Pain Distress: None Mental Status: Positive for: Alert and Oriented X 3 Finger Stick Blood Glucose: 425 - Systems Exam Head: Present: Atraumatic, Normocephalic Medical Decision Making ED Course and Treatment: 01/20/18 Impression: R/O DKA/hyperosmolar ketoacidosis, r/o infection 42 year old male, with elevated sugar level. Differential Diagnosis included but are not limited to: r/o dka Plan: -- Labs -- Urinalysis -- Ultrasound -- Pepcid, Reglan, and Sodium Chloride -- Reassess and disposition Progress Notes: During medical evaluation, patient became agitated and stated that the hospital has mistreated him in the past and expresses extreme anger. I explained to patient that we will do out best to make him feel better, however patient did not like that as well. pt is currently awaiting labs/diagnostic results 01/20/18 11:55 Dr. Fitzgerald is at bedside and is made aware of pt's medical complaints. He agrees with admission and would like to consult Dr. Jaime, Dr. Osborne, and Dr. Snyder (surg). 01/20/18 12:00 Case discussed with residential real estate appraiser who is made aware and agrees with plan of admission and starting the patient on antibiotics; will evaluate patient at bedside 1230 pt is made aware of his medical results pt agrees with admission pt refused IV bolus of insulin states he will give his own Re-evaluation Time: 11:45 Reassessment Condition: Improving,but remains with symptoms - Critical Care Critical Care Minutes: 45 minutes Critical Care Time: Excluding Proc Time Narrative Critical Care (Text): 01/20/18 12:11 critical care time: 45min, excluding procedure time, excluding time teaching residents/students/mid-level providers; including initial eval/diagnosis, diagnostic interpretation, re-eval, consultations, final disposition - Lab Interpretations Lab Results: 01/20/18 10:30 01/20/18 10:30 Lab Results 01/20/18 10:55: Serum Osmolality 311 H 01/20/18 10:30: Sodium 139, Chloride 99, Potassium 5.4 H, Carbon Dioxide 18 L, Anion Gap 27 H, BUN 24 H, Creatinine 0.9, Est GFR ( Amer) > 60, Est GFR ( Non-Af Amer) > 60, Random Glucose 520 H* D, Calcium 10.4, Magnesium 1.7, Total Bilirubin 1.2, AST 26, ALT 32, Alkaline Phosphatase 91, Total Protein 7.2, Albumin 4.9 H, Globulin 2.3, Albumin/Globulin Ratio 2.2 H, Lipase 94 05/18/18 10:30: pO2 48, VBG pH 7.22 L, VBG pCO2 44.0, VBG HCO3 18.0 L, VBG Total CO2 19.4 L, VBG O2 Sat (Calc) 85.2 H, VBG Base Excess -9.5 L, VBG Potassium 5.1, Sodium 131.0 L, Chloride 97.0 L, Glucose 531 H*, Lactate 2.4 H, FiO2 21.0, Venous Blood Potassium 5.1 01/20/18 10:30: PT 11.3, INR 0.98, APTT 31.1 01/20/18 10:30: WBC 11.2 H D, RBC 4.86, Hgb 14.8, Hct 42.5, MCV 87.4, MCH 30.5, MCHC 34.8, RDW 12.6, Plt Count 261, MPV 10.1, Gran % 87.0 H, Lymph % (Auto) 8.5 L, Dale % (Auto) 4.1, Eos % (Auto) 0.2 L, Baso % (Auto) 0.2, Gran # 9.70 H, Lymph # (Auto) 1.0 L, Dale # (Auto) 0.5, Eos # (Auto) 0.0, Baso # (Auto) 0.02 01/20/18 10:26: Urine Color Yellow, Urine Appearance Clear, Urine pH 6.0, Ur Specific [place] 1.020, Urine Protein Negative, Urine Glucose (UA) >=1000, Urine Ketones >=80, Urine Blood Negative, Urine Nitrate Negative, Urine Bilirubin Negative, Urine Urobilinogen 0.2, Ur Leukocyte Esterase Negative 01/20/18 10:01: POC Glucose (mg/dL) 425 H* I have reviewed the lab results: Yes Interpretation: Abnormal lab values (elevated BS, elevated WBCs, + elevated k) - RAD Interpretation Narrative RAD Interpretations (Text): 01/20/18 11:55 Abdomen Ultrasound: Creator : Joo Shultz MD FINDINGS: LIVER: Measures cm. Normal echogenicity of the liver parenchyma. No mass. No intrahepatic bile duct dilatation. GALLBLADDER: Cholelithiasis with wall thickening measuring up to 5 millimeters; correlate clinically for cholecystitis. COMMON BILE DUCT: Measures mm. No stones. No dilatation. PANCREAS: Unremarkable as visualized. No mass. No ductal dilatation. RIGHT KIDNEY: Measures cm. Normal echogenicity. No calculus, mass, or hydronephrosis. LEFT KIDNEY: Measures cm. Normal echogenicity. No calculus, mass, or hydronephrosis. SPLEEN: Normal in size and contour. No mass. 1.5 centimeter accessory spleen. AORTA: No aneurysmal dilatation. IVC: Unremarkable. OTHER FINDINGS: None. IMPRESSION: Cholelithiasis with wall thickening measuring up to 5 millimeters; correlate clinically for cholecystitis. Chest X-Ray - pending Radiology Orders: 01/20/18 10:22 ABDOMEN COMPLETE [US] Stat 01/20/18 10:54 CHEST TWO VIEWS (PA/LAT) [RAD] Stat Quill Collector: Radiologist - EKG Interpretation EKG Interpretation (Text): 01/20/18 14:53 Sinus tach at 105 bpm, normal axis, no ectopy, non-specific st changes, BORDERLINE EKG; unchanged compare with old ekg 02/2017 Interpreted by ED Physician: Yes Type: 12 lead EKG Comparison: Similar to previous EKG - Medication Orders Current Medication Orders: Sodium Chloride (Sodium Chloride 0.45%) 1,000 mls @ 80 mls/hr IV .[id number] NARA Last Admin: 01/20/18 12:58 Dose: 80 mls/hr eMAR Start Stop Document 01/20/18 12:58 SS (Rec: 01/20/18 12:58 SS [id number]) Intravenous Solution Start Date 01/20/18 Start Time 12:58 Insulin Human Regular (Humulin R High) 0 units SC ACHS NARA PRN Reason: Protocol Discontinued Medications Famotidine (Pepcid) 20 mg IVP STAT STA Stop: 01/20/18 10:23 Last Admin: 01/20/18 10:48 Dose: 20 mg IVP Administration Document 01/20/18 10:48 GMD (Rec: 01/20/18 10:48 GMD [id number]) Charges for Administration # of IVP Administrations 1 Sodium Chloride (Sodium Chloride 0.9%) 1,000 mls @ 1,000 mls/hr IV .Q1H STA Stop: 01/20/18 11:21 Last Admin: 01/20/18 10:48 Dose: 1,000 mls/hr eMAR Start Stop Document 01/20/18 10:48 GMD (Rec: 01/20/18 10:48 GMD [id number]) Intravenous Solution Start Date 01/20/18 Start Time 10:48 End Date 01/20/18 End time 11:48 Total Infusion Time 60 Metronidazole (Flagyl) 500 mg in 100 mls @ 100 mls/hr IVPB STAT STA PRN Reason: Protocol Stop: 01/20/18 12:56 Last Admin: 01/20/18 14:25 Dose: 100 mls/hr eMAR Start Stop Document 01/20/18 14:25 SS (Rec: 01/20/18 14:25 SS [id number]) Intravenous Solution Start Date 01/20/18 Start Time 14:25 End Date 01/20/18 End time 15:25 Total Infusion Time 60 Ceftriaxone Sodium (Rocephin 1 Gram Ivpb) 1 gm in 100 mls @ 200 mls/hr IVPB STAT STA PRN Reason: Protocol Stop: 01/20/18 12:28 Last Admin: 01/20/18 12:57 Dose: 200 mls/hr eMAR Start Stop Document 01/20/18 12:57 SS (Rec: 01/20/18 12:58 SS [id number]) Intravenous Solution Start Date 01/20/18 Start Time 12:58 End Date 01/20/18 Insulin Human Regular (Humulin R) 8 units IV ONCE ONE Stop: 01/20/18 12:22 Last Admin: 01/20/18 13:11 Dose: Not Given Non-Admin Reason: Patient Refused Metoclopramide HCl (Reglan) 10 mg IVP STAT STA Stop: 01/20/18 10:23 Last Admin: 01/20/18 10:48 Dose: 10 mg IVP Administration Document 01/20/18 10:48 GMD (Rec: 01/20/18 10:48 GMD [id number]) Charges for Administration # of IVP Administrations 1 - Scribe Statement The provider has reviewed the documentation as recorded by the Lenaibe Angeline Sullivan Provider Scribe Attestation: All medical record entries made by the Scribe were at my direction and personally dictated by me. I have reviewed the chart and agree that the record accurately reflects my personal performance of the history, physical exam, medical decision making, and the department course for this patient. I have also personally directed, reviewed, and agree with the discharge instructions and disposition. Disposition/Present on Arrival - Present on Arrival Any Indicators Present on Arrival: No History of DVT/PE: No History of Uncontrolled Diabetes: Yes Urinary Catheter: No History of Decub. Ulcer: No History Surgical Site Infection Following: None - Disposition Have Diagnosis and Disposition been Completed?: Yes Diagnosis: Acute cholecystitis, Acute hyperglycemia, Weakness, Dehydration Disposition: HOSPITALIZED Disposition Time: 12:00 Patient Plan: Admission Patient Problems: Current Active Problems Problem Status Onset Acute cholecystitis Acute Acute hyperglycemia Acute Dehydration Acute Weakness Acute Condition: STABLE
[2018-01-20 10:47] LABS: URINE BILIRUBIN NEGATIVE (NEGATIVE); URINE BLOOD NEGATIVE (NEGATIVE); URINE GLUCOSE (UA) >=1000 mg/dL (NEGATIVE); URINE LEUKOCYTE ESTERASE NEGATIVE Leu/uL (NEGATIVE); URINE PROTEIN NEGATIVE mg/dL (<30 mg/dL); URINE UROBILINOGEN 0.2 E.U./dL (<1 E.U./dL)
[2018-01-20 10:48] LABS: VENOUS BLOOD GAS BASE EXCESS -9.5 mmol/L (0.0-2.0); VENOUS BLOOD GAS PO2 48 mm/Hg (30-55); VENOUS BLOOD PH 7.22 (7.32-7.43)
[2018-01-20 10:49] LABS: BASO # 0.02 K/mm3 (0.0-2.0); BASO % 0.2 % (0.0-3.0); EOS % 0.2 % (1.5-5.0); GRAN # 9.7 (1.4-6.5); HEMOGLOBIN 14.8 g/dL (14.0-18.0); LYMPH % 8.5 % (22.0-35.0); MEAN CELL VOLUME 87.4 fl (80.0-105.0); MEAN CORPUSCULAR HEMOGLOBIN 30.5 pg (25.0-35.0); MEAN CORPUSCULAR HGB CONC 34.8 g/dl (31.0-37.0); MEAN PLATELET VOLUME 10.1 fl (7.0-11.0); MONO # 0.5 (0.1-0.6); MONO % 4.1 % (1.0-6.0); RBC 4.86 10^6/uL (3.5-6.1); RED CELL DISTRIBUTION WIDTH 12.6 % (11.5-14.5); WHITE BLOOD COUNT 11.2 10^3/ul (4.5-11.0)
[2018-01-20 10:54] LABS: URINE APPEARANCE CLEAR (CLEAR); URINE COLOR YELLOW (YELLOW)
[2018-01-20 10:56] LABS: INR 0.98 (0.93-1.08); PARTIAL THROMBOPLASTIN TIME 31.1 Seconds (25.1-36.5); PROTHROMBIN TIME 11.3 SECONDS (9.4-12.5)
[2018-01-20 11:00] LABS: ALB/GLOB RATIO 2.2 (1.1-1.8); ALBUMIN 4.9 g/dL (3.0-4.8); ALT/SGPT 32 U/L (7-56); AST/SGOT 26 U/L (17-59); BLOOD UREA NITROGEN 24 mg/dL (7-21); CALCIUM 10.4 mg/dL (8.4-10.5); GFR AFRICAN-AMERICAN > 60; GFR NON-AFRICAN AMERICAN > 60; LIPASE 94 U/L (23-300)
--- NOTE | 2018-01-20 11:53 | US ---
HISTORY: mid abd pain COMPARISON: None. TECHNIQUE: Sonographic evaluation of the abdomen. FINDINGS: LIVER: Measures cm. Normal echogenicity of the liver parenchyma. No mass. No intrahepatic bile duct dilatation. GALLBLADDER: Cholelithiasis with wall thickening measuring up to 5 millimeters; correlate clinically for cholecystitis. COMMON BILE DUCT: Measures mm. No stones. No dilatation. PANCREAS: Unremarkable as visualized. No mass. No ductal dilatation. RIGHT KIDNEY: Measures cm. Normal echogenicity. No calculus, mass, or hydronephrosis. LEFT KIDNEY: Measures cm. Normal echogenicity. No calculus, mass, or hydronephrosis. SPLEEN: Normal in size and contour. No mass. 1.5 centimeter accessory spleen. AORTA: No aneurysmal dilatation. IVC: Unremarkable. OTHER FINDINGS: None. IMPRESSION: Cholelithiasis with wall thickening measuring up to 5 millimeters; correlate clinically for cholecystitis.
[2018-01-20] MEDS ORDERED: metroNIDAZOLE IV 500 mg/100 ml 500 MG/100 ML BAG IVPB STA (11:57)
[2018-01-20] MEDS ORDERED: cefTRIAXone 1 gm 1 GM/100 ML BAG IVPB STA (11:59)
[2018-01-20] MEDS ORDERED: Sodium Chloride 0.45% 1,000 ML IV SCH (12:15)
[2018-01-20] MEDS: Insulin Regular 1 UNITS/0.01 ML ML IV ONE ×2 (13:05→13:11)
--- NOTE | 2018-01-20 13:16 | CP.PCM.CON ---
History of Present Illness - History of Present Illness History of Present Illness: Surgery consult note for Dr. Leal HPI: 42 yo M with PMH of DM-I who initially presented to the ED complaining of elevated blood sugars and abdominal discomfort. Symptoms have been worsening since yesterday, with a blood glucose reading >500 yesterday evening, and persistent elevations >380 despite appropriate insulin administration by insulin pump. Abdominal discomfort started this morning, associated with nausea. Not associated with meals. He denies vomiting, diarrhea, constipation, reflux symptoms. Admits to fullness. Denies fevers, chills, chest pain, shortness of breath, dysuria, hematuria, sore throat, cough. ROS: 12 point ROS was obtained and was negative except as above PMH: DM-I PSH: Hernia repair in infancy ALL: NKDA Meds: Insulin, Lipitor (non compliant due to myalgias) Family History: Unknown Social: 1/2 PPD x7 years, quit 1 year ago. Drinks socially on weekends. Denies drug use. 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, blue and purple - ENDOCRINE/METABOLIC Hx Diabetes Mellitus Type 1: Yes (dx age 22) - INTEGUMENTARY Other/Comment: multiple tatoos - MUSCULOSKELETAL/RHEUMATOLOGICAL Hx Falls: No - PSYCHIATRIC Hx Substance Use: No - SURGICAL HISTORY Other/Comment: Hernia repair as child Meds Allergies/Adverse Reactions: Allergies Allergy/AdvReac Type Severity Reaction Status Date / Time No Known Allergies Allergy Verified 01/20/18 10:10 - Medications Medications: Current Medications Sodium Chloride (Sodium Chloride 0.45%) 1,000 mls @ 80 mls/hr IV .[id number] [facility] Last Admin: 01/20/18 12:58 Dose: 80 mls/hr Insulin Human Regular (Humulin R High) 0 units SC ACHS NARA PRN Reason: Protocol Physical Exam - Constitutional Appears: Non-toxic, No Acute Distress - Head Exam Head Exam: NORMAL INSPECTION - Eye Exam Eye Exam: Normal appearance - ENT Exam ENT Exam: Mucous Membranes Dry - Respiratory Exam Respiratory Exam: Clear to Auscultation Bilateral, NORMAL BREATHING PATTERN - Cardiovascular Exam Cardiovascular Exam: RRR, +S1, +S2 - GI/Abdominal Exam GI & Abdominal Exam: Soft, Tenderness (RUQ and mild LLQ with mild rebound). absent: Distended, Firm, Guarding, Rigid Additional comments: Positive Frey's sign - Extremities Exam Extremities exam: Positive for: normal inspection - Neurological Exam Neurological exam: Alert, Oriented x3 - Psychiatric Exam Psychiatric exam: Normal Affect, Normal Mood - Skin Skin Exam: Dry, Intact, Normal Color Results - Vital Signs Recent Vital Signs: Last Vital Signs Temp 99 F 01/20/18 10:06 Pulse 111 H 01/20/18 10:06 Resp 18 01/20/18 10:06 BP 130/74 01/20/18 10:06 Pulse Ox 99 01/20/18 10:06 - Labs Result Diagrams: 01/20/18 10:30 01/20/18 10:30 Assessment & Plan - Assessment and Plan (Free Text) Assessment: 42 yo M with hyperglycemia and acute cholecystitis Plan: -- HIDA scan to confirm cholecystitis -- IVF -- NPO -- IV Rocephin and Flagyl for cholecystitis -- Hyperglycemia management per primary -- Anticipate possible surgery early tomorrow after medical optimization, rehydration Further recs per Dr. Leal, covering for Dr. Kulwinder Whitman PGY1
[2018-01-20 13:58] LABS: VENOUS BLOOD GAS BASE EXCESS -13.9 mmol/L (0.0-2.0); VENOUS BLOOD GAS PO2 100 mm/Hg (30-55); VENOUS BLOOD PH 7.17 (7.32-7.43)
[2018-01-20] MEDS: Lactated Ringer's 1,000 ML IV SCH ×3 (16:54→22:28)
--- NOTE | 2018-01-20 16:55 | CARD ---
APPROVED REPORT EKG Measurement Heart [id number] [place] [id number] [id number] <Conclusion> Poor data quality, interpretation may be adversely affected Sinus tachycardia Incomplete right bundle branch block Borderline ECG
[2018-01-20] MEDS: Insulin Reg-HIGH-Coverage SC SCH ×2 (17:02→21:00)
[2018-01-20] MEDS: Piperacillin/Tazobact 3.375 gm 100 ML IVPB SCH ×2 (17:03→23:02)
[2018-01-20 17:08] VITALS: BMI 24.3
[2018-01-20] MEDS ORDERED: Pneumococcal 23-Valent Vaccine IM ONE (17:09)
--- NOTE | 2018-01-20 18:06 | CP.PCM.CON ---
History of Present Illness - History of Present Illness History of Present Illness: 42 year old male with PMH of DM with use of insulin pump came in to [facility] [place] since he was not feeling well and his sugars have been running high. He has been having epigastric discomfort with some nausea but no vomiting. He denies fever or chills, no dysphagia, no cough or colds, no headache or dizziness, no chest pain, no diarrhea, no dysuria but has some polyuria. In the ED, ultrasound of the abdomen was done which is showing some gallbladder wall thickening. Patient is also presenting with leukocytosis. Infectious diseases consult is requested to further evaluate and manage. Patient was seen in the ED. 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, blue and purple - ENDOCRINE/METABOLIC Hx Diabetes Mellitus Type 1: Yes (dx age 22) - INTEGUMENTARY Other/Comment: multiple tatoos - MUSCULOSKELETAL/RHEUMATOLOGICAL Hx Falls: No - PSYCHIATRIC Hx Substance Use: No - SURGICAL HISTORY Other/Comment: Hernia repair as child Meds Allergies/Adverse Reactions: Allergies Allergy/AdvReac Type Severity Reaction Status Date / Time No Known Allergies Allergy Verified 01/20/18 10:10 - Medications Medications: Current Medications Metronidazole (Flagyl) 500 mg in 100 mls @ 100 mls/hr IVPB STAT STA PRN Reason: Protocol Stop: 01/20/18 12:56 Ceftriaxone Sodium (Rocephin 1 Gram Ivpb) 1 gm in 100 mls @ 200 mls/hr IVPB STAT STA PRN Reason: Protocol Stop: 01/20/18 12:28 Sodium Chloride (Sodium Chloride 0.45%) 1,000 mls @ 80 mls/hr IV .[id number] NARA Insulin Human Regular (Humulin R High) 0 units SC ACHS NARA PRN Reason: Protocol Physical Exam - Constitutional Appears: Chronically Ill - Head Exam Head Exam: NORMAL INSPECTION - ENT Exam ENT Exam: Mucous Membranes Moist - Neck Exam Neck exam: Negative for: Lymphadenopathy, Meningismus - Respiratory Exam Respiratory Exam: Decreased Breath Sounds. absent: Rales - Cardiovascular Exam Cardiovascular Exam: +S1, +S2 - GI/Abdominal Exam GI & Abdominal Exam: Soft. absent: Tenderness Results - Vital Signs Recent Vital Signs: Last Vital Signs Temp 99 F 01/20/18 10:06 Pulse 111 H 01/20/18 10:06 Resp 18 01/20/18 10:06 BP 130/74 01/20/18 10:06 Pulse Ox 99 01/20/18 10:06 - Labs Result Diagrams: 01/20/18 10:30 01/20/18 10:30 Assessment & Plan - Assessment and Plan (Free Text) Plan: Assessment Systemic Inflammatory response syndrome, consider due to diabetic ketoacidosis with cholelithiasis, R/O cholecystitis Plan reviewed ultrasound of the abdomen - will follow up HIDA scan since AST, ALT, Alk Phos and bilirubin are not elevated (usually elevated with cholecystitis) - will start Zosyn and monitor for now follow up plans of Surgery and Endocrinology will monitor clinically
--- NOTE | 2018-01-20 21:33 | CP.PCM.PCO ---
Physician Communication Note - Physician Communication Note Physician Communication Note: Was paged by nurse because patient was demanding a diet Addendum Addendum: 01/20/18 21:26 Went to see patient to discuss his NPO order and the reasons for it. Patient was very frustrated about not being able to eat, stating no one explained why he couldn't eat. I acknowledged his frustrations and spent 5-10 minutes in the room, educating patient about his acute infection, his elevated blood sugar, and the fact that having a diet could jeopardize his health by perpetuating his hyperglycemia and worsening his cholecystitis. Patient kept insisting he needed to eat and that he was gonna leave and go find food. I stated that it was within his rights to leave AMA if that was what he wished. Patient did not reply to that but just insisted that he be given something to eat.
[2018-01-20] MEDS ORDERED: Insulin Detemir 100 units/ml Vial (Levemir) SC STA (22:03)
--- NOTE | 2018-01-20 22:26 | HP ---
HISTORY OF PRESENT ILLNESS: I was called down to the emergency room because Partha was not feeling well. I spoke to him for about past 24 hours. His blood sugars have all been 400 or higher. It is in the 500s here in the ER. He is a 42-year-old white man who presents with about 24 hours of elevated blood sugars, also not feeling well since yesterday with abdominal discomfort, queasy feeling, not sure what it is. He cannot explain it, but the abdomen is just not right. He has been going to the bathroom. He does not know if it is diarrhea or constipation. He has been just off a little bit. He left work. He came to the emergency room. Last time, he was in the hospital, he had 500 blood sugars, higher also. He is a diabetic type 1 since age 22. He is color blind. Multiple tattoos. He had a hernia repair as a child. FAMILY HISTORY: Unknown family history, but has diabetes. SOCIAL HISTORY: He still smokes. Still drinks. No substance abuse. ALLERGIES: NO KNOWN DRUG ALLERGIES. MEDICATIONS: He takes Apidra insulin 100 units. REVIEW OF SYSTEMS: Now, he is tired. No acute vision or hearing changes. No sore throat. No chest pain. No shortness of breath. No coughing. No palpitations. He has abdominal pain. There is nauseousness. Just not feeling right in the tummy, but no constipation or diarrhea yet. Increase in urination, increase in thirst. No apparent skin issues. He is not anxious. PHYSICAL EXAMINATION: VITAL SIGNS: He has a 99 plus temperature, it was 100.3 later; 111 pulse; 18 respiratory rate; 130/74 blood pressure, and 99% O2 sat on room air. GENERAL: He is alert in bed, a little bit distressed. HEENT: His head is atraumatic, normocephalic. Extraocular muscles are intact. Pupils equal and reactive to light. Throat is dry. NECK: Supple. HEART: Regular rate. Normal S1 and S2. LUNGS: Decreased breath sounds, but clear to auscultation. No wheezing. No rhonchi. No rales. ABDOMEN: Questionable distended. Decreased bowel sounds, but present. Soft for the most part. No guarding. No rebound. No real discomfort when poking on his belly. Just not 100% normal exam. EXTREMITIES: He has no edema. NEUROLOGICAL: Cranial nerves II through XII grossly intact. Alert and oriented x3. LYMPHATICS: Thyroid midline. No palpable appreciable lymphadenopathy. SKIN: Besides tattoos seemed to be intact with no ulcers or rashes apparently being seen. LABORATORY DATA: He had some tests done. He has a urine which is clean. He has a 139 sodium, potassium 5.4. BUN 24, creatinine 0.9. GFR is greater than 60. Sugar is 520, then 311. Calcium 10.4, magnesium 1.7. Total bili is 1.2, AST 26, ALT is 32, alk phos is 91, total protein 7.2. He has a lactate at 2.4 and a 531 glucose on ABG. His INR is 0.98. His white count is 11.2, hemoglobin 14.8, hematocrit 42.5, and platelets of 261. He had an ultrasound of the abdomen because of abdominal queasiness that he had and it shows cholelithiasis with wall thickening measured up to 5 mm with cholecystitis. He will have a consult with GI, Surgery, Endocrinology, and Infectious Disease. He has gotten some IV fluids, metronidazole, and some ceftriaxone. He is n.p.o. We will give him IV fluids. We will watch him closely. He has a cholecystitis with elevated blood sugar. Jc Fitzgerald DO
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
[2018-01-20 22:53] VITALS: RESP 20
--- NOTE | 2018-01-21 03:03 | CON ---
DATE: 01/20/2018 ENDOCRINOLOGY CONSULT LOCATION: In room 374. HISTORY OF PRESENT ILLNESS: This is a 42-year-old male with known history of type 1 insulin-dependent diabetes, currently using an insulin pump, who presents here with marked hyperglycemic accelerations and glucose levels over 500 with concomitant generalized body weakness and supervening nausea, dyspepsia, and vague upper abdominal pains and is now being referred for diabetic evaluation and management. He has also been evaluated to have acute cholecystitis and has been kept n.p.o. and undergoing GI workup with surgical evaluation pending at this time. PAST MEDICAL HISTORY: As mentioned above, history of type 1 insulin-dependent diabetes, diagnosed at the age 22 and is currently on an insulin pump, using Apidra insulin as noted. FAMILY HISTORY: Positive for hypertension and heart disease. SOCIAL HISTORY: Patient admits to nicotine dependence and consumes half a pack a day for many years now, and also social use of alcohol. No other illicit drug use. REVIEW OF SYSTEMS: As mentioned above, admits to episodic bouts of dizziness and lightheadedness, worse on the day of admission with bifrontal headache and occasional bouts of visual blurring. No chest pain or palpitations or PNDs. His oral intake has been variable with nausea, dyspepsia, and vague upper abdominal pains. Also admits to marked polyuria, nocturia, and polydipsia as noted. PHYSICAL EXAMINATION: GENERAL: This is an average-built male, in no apparent distress. VITAL SIGNS: Blood pressure 142/80, pulse of 100 beats per minute and regular, temperature 98, respirations 20. Height is 5 feet 10 inches and weight is pounds. HEENT: Head, normocephalic. Eyes anicteric with pink conjunctivae. Funduscopy not possible at this time. Ears, nose and throat, are otherwise normal. NECK: Supple. Thyroid gland is normal in size. No carotid bruits or any cervical adenopathy. CARDIOPULMONARY: Some adynamic precordium. S1, S2 is rapid and regular. LUNGS: Clear to auscultation. ABDOMEN: Flat, soft with positive bowel sounds. EXTREMITIES: No peripheral edema. Pulses are +2 bilaterally. LABORATORY DATA: His CBC showed WBC of 11.2, hemoglobin of 14, hematocrit of 42, MCV 87, platelets 261. His chemistry showed BUN of 24, sodium 139, potassium 5.4, chloride 99, CO2 is 18, glucose is 520, and creatinine is 0.9. His glucose levels are ranging from 364 to 425 mg/dL. ASSESSMENT: This is a 42-year-old male with uncontrolled and decompensated type 1 insulin-dependent diabetes, presenting here with diffuse onset of upper abdominal pain with nausea and dyspepsia, and has been evaluated to have acute cholecystitis, and is being referred now for diabetic evaluation and management. PLAN OF MANAGEMENT: We will increase the patient's stat dose of Levemir given as 20 units subcu tonight as ordered. Tomorrow morning, we will start him on basal insulin given as 12 hours with the combination of Levemir given as 30 units subcu every 12 hours starting tomorrow morning. We will modify the coverage scale to obviate hypoglycemia, and detailed orders have been given. Hemoglobin A1c will be done to confirm his prior glycemic control, and baseline thyroid function studies will be ordered. We will obtain serial chemistries and supplement accordingly as needed. We will follow with you. Kortney Jaime MD
[2018-01-21] MEDS ORDERED: Insulin Lispro 1 UNITS/0.01 ML SC ONE (03:38)
[2018-01-21] MEDS: Lactated Ringer's 1,000 ML IV SCH (05:42)
[2018-01-21] MEDS: Piperacillin/Tazobact 3.375 gm 100 ML IVPB SCH (05:43)
[2018-01-21] MEDS ORDERED: Insulin Lispro 1 UNITS/0.01 ML SC SCH (07:30)
[2018-01-21 08:45] VITALS: BP 132/67; PULSE 81; TEMP 98.3; O2SAT 98
[2018-01-21] MEDS ORDERED: Insulin Detemir 100 units/ml Vial (Levemir) SC SCH ×2 (10:00)
--- NOTE | 2018-01-21 11:20 | NM ---
PROCEDURE: Nuclear Medicine Hepatobiliary Scan HISTORY: RUQ pain, possible cholecystitis COMPARISON: January 20, 2018. Abdominal ultrasound Summary of findings on the comparison examination: Cholelithiasis with wall thickening measuring up to 5 millimeters; correlate clinically for cholecystitis. TECHNIQUE: 6.0 mCi of technetium 99m Mebrofenin was administered intravenously. Planar images of the abdomen were obtained at 5 min intervals to 60 mins. Delayed images were also obtained. FINDINGS: LIVER: Timely and homogenous uptake. COMMON BILE DUCT: identified at 5 mins. GALLBLADDER: identified at 5 mins. SMALL BOWEL: Identified at 30 mins. IMPRESSION: Normal Hepatobiliary Scan. The cystic duct is patent.
--- NOTE | 2018-01-21 11:44 | CP.PCM.CON ---
<Nick Treviño - Last Filed: 01/21/18 11:44> History of Present Illness - History of Present Illness History of Present Illness: PGY4 Initial GI Consult Partha Cervantes is a 42M w/ hx of insulin dependent DM who presented to the ER due to uncontrolled glucose levels. Pt states that he was in his normal health until a few days prior when his glucose levels were consistently > 400. He noted that he continued to use his insulin pump and even administer premeal insulin. Upon arrival to the ED, he noted abd pain upon palpation of his RUQ. Pt denies any abd pain prior to this event. Denies any fever, chills or diaphoresis. An Abd U/S revealed slightly thickened gallbladder wall. He was started on antibiotics. Denies any prior hx of liver disease or pancreas related. Denies any prior episodes of biliary colic or acute cholecystits. PMH: DM-I PSH: Hernia repair in infancy Family History: Reviewed; Denies any GI related malignancies Social: 1/2 PPD x7 years, quit 1 year ago. Drinks socially on weekends. Denies drug use. Endo Hx: denies ROS: 12 point ROS conducted, neg other than above Past Patient History - Infectious Disease Hx of Infectious Diseases: None - Tetanus Immunizations Tetanus Immunization: Unknown - Past Social History Smoking Status: Light Smoker < 10 Cigarettes Daily - CARDIAC Hx Hypercholesterolemia: Yes - PULMONARY Hx Respiratory Disorders: Yes (light smoker) - NEUROLOGICAL Hx Neurological Disorder: No - HEENT Hx HEENT Problems: Yes (reading glasses) Other/Comment: color blind mixes up waterman and purple, blue and purple - RENAL Hx Chronic Kidney Disease: No - ENDOCRINE/METABOLIC Hx Diabetes Mellitus Type 1: Yes (dx age 22) - INTEGUMENTARY Other/Comment: multiple tatoos - MUSCULOSKELETAL/RHEUMATOLOGICAL Hx Falls: No - GASTROINTESTINAL Hx Gastrointestinal Disorders: No - GENITOURINARY/GYNECOLOGICAL Hx Genitourinary Disorders: No - PSYCHIATRIC Hx Substance Use: No - SURGICAL HISTORY Other/Comment: Hernia repair as child Meds Allergies/Adverse Reactions: Allergies Allergy/AdvReac Type Severity Reaction Status Date / Time No Known Allergies Allergy Verified 01/20/18 10:10 - Medications Medications: Current Medications Lactated Ringer's (Lactated Ringer's) 1,000 mls @ 150 mls/hr IV .Q6H40M [facility] Last Admin: 01/21/18 05:42 Dose: 150 mls/hr Piperacillin Sod/Tazobactam Sod (Zosyn 3.375 In Ns 100ml) 100 mls @ 200 mls/hr IVPB Q6 [facility] PRN Reason: Protocol Stop: 01/27/18 15:31 Last Admin: 01/21/18 05:43 Dose: 200 mls/hr Insulin Detemir (Levemir) 30 unit SC Q12H [facility] Insulin Human Lispro (Humalog) 0 units SC ACHS [facility] Last Admin: 01/21/18 08:40 Dose: Not Given Physical Exam - Constitutional Appears: Well, No Acute Distress - Head Exam Head Exam: ATRAUMATIC, NORMOCEPHALIC - Eye Exam Eye Exam: Normal appearance Pupil Exam: NORMAL ACCOMODATION - ENT Exam ENT Exam: Mucous Membranes Moist, Normal Exam - Neck Exam Neck exam: Positive for: Normal Inspection - Respiratory Exam Respiratory Exam: Clear to Auscultation Bilateral, Rhonchi, NORMAL BREATHING PATTERN. absent: Prolonged Expiratory Phase, Wheezes, Respiratory Distress - Cardiovascular Exam Cardiovascular Exam: REGULAR RHYTHM, +S1, +S2 - GI/Abdominal Exam GI & Abdominal Exam: Normal Bowel Sounds, Soft. absent: Organomegaly, Pulsatile Mass, Rebound, Rigid, Tenderness - Extremities Exam Extremities exam: Positive for: normal inspection - Neurological Exam Neurological exam: Alert, Normal Gait, Oriented x3 - Psychiatric Exam Psychiatric exam: Normal Affect, Normal Mood - Skin Skin Exam: Dry, Intact, Normal Color, Warm Results - Vital Signs Recent Vital Signs: Last Vital Signs Temp 98.3 F 01/21/18 08:43 Pulse 81 01/21/18 08:43 Resp 20 01/21/18 08:43 BP 132/67 01/21/18 08:43 Pulse Ox 98 01/21/18 08:43 - Labs Result Diagrams: 01/20/18 10:30 01/20/18 10:30 Labs: Laboratory Results - last 24 hr 01/20/18 01/20/18 01/20/18 12:56 13:20 14:17 pO2 100 H VBG pH 7.17 L* VBG pCO2 38.0 L VBG HCO3 13.9 L VBG Total CO2 15.1 L VBG O2 Sat (Calc) 98.6 H VBG Base Excess -13.9 L VBG Potassium 5.2 Sodium 133.0 Chloride 100.0 Glucose 493 H* Lactate 2.1 FiO2 21.0 POC Glucose (mg/dL) 364 H 397 H Venous Blood Potassium 5.2 01/20/18 01/20/18 16:11 19:11 pO2 VBG pH VBG pCO2 VBG HCO3 VBG Total CO2 VBG O2 Sat (Calc) VBG Base Excess VBG Potassium Sodium Chloride Glucose Lactate FiO2 POC Glucose (mg/dL) 366 H 317 H Venous Blood Potassium Assessment & Plan - Assessment and Plan (Free Text) Assessment: Partha Cervantes is a 42M w/ hx of DM who presented to the ER due to uncontrolled Glucose levels. Abd U/S Revealed slightly thickened GB wall and cholelithiasis cholelithiasis thicken GB wall DDx: acute cholecystitis uncontrolled Dm Plan -normal CBD on U/S -no elevated in LFTs -no indication of ERCP or other GI procedures -recommend lap molly -surgery on board -HIDA pending -continue abx -will sign off D/W Dr. Terrell <Abram Terrell - Last Filed: 01/21/18 18:40> Results - Vital Signs Recent Vital Signs: Last Vital Signs Temp 98.3 F 01/21/18 08:43 Pulse 81 01/21/18 08:43 Resp 20 01/21/18 08:43 BP 132/67 01/21/18 08:43 Pulse Ox 98 01/21/18 08:43 - Labs Result Diagrams: 01/21/18 11:30 01/21/18 11:30 Labs: Laboratory Results - last 24 hr 01/20/18 01/20/18 01/21/18 16:11 19:11 11:30 WBC 10.1 RBC 4.36 Hgb 13.4 L Hct 37.5 L MCV 86.0 MCH 30.7 MCHC 35.7 RDW 12.5 Plt Count 250 MPV 9.4 Gran % 75.9 H Lymph % (Auto) 18.6 L [place] % (Auto) 5.0 Eos % (Auto) 0.3 L Baso % (Auto) 0.2 Gran # 7.67 H Lymph # (Auto) 1.9 [place] # (Auto) 0.5 Eos # (Auto) 0.0 Baso # (Auto) 0.02 Sodium Potassium Chloride Carbon Dioxide Anion Gap BUN Creatinine Est GFR ( Amer) Est GFR (Non-Af Amer) POC Glucose (mg/dL) 366 H 317 H Random Glucose Calcium Total Bilirubin AST ALT Alkaline Phosphatase Total Protein Albumin Globulin Albumin/Globulin Ratio 01/21/18 11:30 WBC RBC Hgb Hct MCV MCH MCHC RDW Plt Count MPV Gran % Lymph % (Auto) [place] % (Auto) Eos % (Auto) Baso % (Auto) Gran # Lymph # (Auto) [place] # (Auto) Eos # (Auto) Baso # (Auto) Sodium 144 Potassium 4.6 Chloride 105 Carbon Dioxide 27 Anion Gap 17 BUN 15 Creatinine 0.7 L Est GFR ( Amer) > 60 Est GFR (Non-Af Amer) > 60 POC Glucose (mg/dL) Random Glucose 194 H Calcium 9.3 Total Bilirubin 1.6 H AST 25 ALT 31 Alkaline Phosphatase 65 Total Protein 6.5 Albumin 4.4 Globulin 2.2 Albumin/Globulin Ratio 2.0 H Attending/Attestation - Attestation I have personally seen and examined this patient.: Yes I have fully participated in the care of the patient.: Yes I have reviewed all pertinent clinical information: Yes Notes (Text): 01/21/18 18:40 42 year old male with symptomatic cholelithiasis. Recommend cholecystectomy.
[2018-01-21 11:48] LABS: ALBUMIN 4.4 g/dL (3.0-4.8); ALT/SGPT 31 U/L (7-56); AST/SGOT 25 U/L (17-59); BLOOD UREA NITROGEN 15 mg/dL (7-21); CALCIUM 9.3 mg/dL (8.4-10.5); GFR AFRICAN-AMERICAN > 60; GFR NON-AFRICAN AMERICAN > 60
[2018-01-21 12:05] LABS: BASO # 0.02 K/mm3 (0.0-2.0); BASO % 0.2 % (0.0-3.0); EOS % 0.3 % (1.5-5.0); GRAN # 7.67 (1.4-6.5); GRAN % 75.9 % (50.0-68.0); HEMOGLOBIN 13.4 g/dL (14.0-18.0); LYMPH # 1.9 (1.2-3.4); LYMPH % 18.6 % (22.0-35.0); MEAN CORPUSCULAR HEMOGLOBIN 30.7 pg (25.0-35.0); MEAN CORPUSCULAR HGB CONC 35.7 g/dl (31.0-37.0); MEAN PLATELET VOLUME 9.4 fl (7.0-11.0); MONO # 0.5 (0.1-0.6); RBC 4.36 10^6/uL (3.5-6.1); RED CELL DISTRIBUTION WIDTH 12.5 % (11.5-14.5); WHITE BLOOD COUNT 10.1 10^3/ul (4.5-11.0)
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
--- NOTE | 2018-01-21 14:57 | PN ---
DATE: 01/21/2018 ENDOCRINOLOGY FOLLOWUP NOTE LOCATION: In room 374. SUBJECTIVE: This is a 42-year-old male with recent uncontrolled type 1 insulin-dependent diabetes, presenting here with marked hyperglycemic accelerations and also supervening upper abdominal pain and has been evaluated to have acute cholecystitis and has been kept n.p.o. overnight pending surgical evaluation and also a GI workup at this time. His glucose values overnight have ranged from 317 to and 397 mg/dL. His chemistries done today are still pending and the chemistries from yesterday showed a BUN of 24, sodium 139, potassium 5.4, chloride 99, CO2 of 18, glucose 520 and creatinine . ASSESSMENT: This is a 42-year-old male with uncontrolled and decompensated type 1 insulin-dependent diabetes, actually using an insulin pump from the outpatient and presenting here with hyperglycemic accelerations and supervening possible acute cholecystitis and is undergoing GI workup and surgical evaluation at this time. PLAN OF MANAGEMENT: We will continue the low-dose modified correction scale with Humalog insulin as given and detailed orders have been given. We will also add basal insulin with Levemir given as 30 units subcu every 12 hours as ordered. We will obtain serial chemistries and supplement accordingly as needed. We will also continue the vigorous IV hydration as given. We will follow. Kortney Jaime MD
--- NOTE | 2018-01-21 23:51 | CON ---
DATE: 01/21/2018 HISTORY OF PRESENT ILLNESS: The patient is seen in room 374 in the presence of his mother and another unidentified female. Spoke to Partha in the presence of my resident . To say, I believe the interview was contentious between the patient and also the mother. The patient has no clear understanding of my questioning, and would always aggressively not answer my questions, and asked several other questions, I tried to answer as best as I could. My understanding is that this 42-year-old is admitted with her markedly elevated glucose after blood glucose is controlled with a pump and insulin as necessary. Because of our conversation, the other questions were often not answered. My understanding is there is NO ALLERGIES, no medicines except for the insulin. PAST SURGICAL HISTORY: No prior operation except an inguinal hernia as a child. ALLERGIES: NO ALLERGIES. REVIEW OF SYSTEMS: He is quite aggravated, frustrated, I imagine. PHYSICAL EXAMINATION: Outside of his agitation, he seems very comfortable. No longer has any pain. He is hungry and wants to eat. I did not examine him. LABORATORY DATA: Reviewed his HIDA scan, which is completely normal with visualization of the gallbladder almost immediately. The ultrasound is remarkable. The ultrasound that was done on 01/20/2018 showed cholelithiasis with wall thickening up to 5 mm, normal common duct, no dilation. There was a CAT scan done about a year ago under the service of Dr. Magdaleno showing mural thickening of the gastric cardia, mural thickening of the sigmoid colon, mural thickening of the rectum, renal hypertrophy, but not a mass, fatty infiltration of the liver. Discharge summary showed a [id number] myocardial infarction with elevated troponin series. Stress test on is essentially normal, suspect myocardial effusion, normal motion of the ventricle. Stress test is otherwise unremarkable. IMPRESSION: My impression is that there was an elevated glucose that was unexplained by the patient, treated with antibiotics and has now resolved. White count initially is 11.2 that is normal, bilirubin is 1.6. The sepsis or the cause of the glucose is unknown; it possibly could have been a transient biliary issue, but would not recommend an operation. The agitation, frustration and contentious nature of this interview will preclude me from being an active member of his attending staff. He did not seem to like me, I certainly cannot communicate with him. I do not think he has an acute surgical problem now. From my point of view, he can be said and discharged once his hyperglycemia is explained and controlled, I will not plan to follow him. Please re-call if necessary. Christopher Miramontes MD
== END 2018-01-21 13:43 | disposition home or self-care (01) ==
LOC: ED 09:35 → ERH 12:01 → INTOOBSV 12:01 → ERH 14:58 → 3RSO 16:30
PROVIDERS: ADMIT Family Medicine; ATTEND Family Medicine
DX: K80.18 Calculus of gallbladder with other cholecystitis without obstruction (principal); E78.00 Pure hypercholesterolemia, unspecified; E86.0 Dehydration; F17.200 Nicotine dependence, unspecified, uncomplicated; E10.65 Type 1 diabetes mellitus with hyperglycemia; H53.50 Unspecified color vision deficiencies; Z79.4 Long term (current) use of insulin; Z91.19 Patient's noncompliance with other medical treatment and regimen; Z96.41 Presence of insulin pump (external) (internal); Z82.49 Family history of ischemic heart disease and other diseases of the circulatory system; R65.10 Systemic inflammatory response syndrome (SIRS) of non-infectious origin without acute organ dysfunction
CPT/HCPCS: 36415; 76700; 78227; 80053; 81003; 82009; 82803; 82948; 83690; 83735; 83930; 85025; 85610; 85730; 87040; 93005; 96361; 96365; 96366; 96367; 96375; 99283; A9537; G0378; J0696; J2543; J2765; J7030; J7040; J7120